=== PATIENT | male | born 1955 | race Caucasian/White ===

== ENCOUNTER → 2016-02-25 | Outpatient (CLI) | payer OTHER ==
[~2016-02-25] MED LIST: BUPIVACAINE HCL 0.25% 10 ML VIAL As Ordered ONE; BUPIVACAINE HCL 0.25% 30 ML VIAL As Ordered ONE; TRIAMCINOLONE ACETONIDE SUSP 40 MG/ML VIAL (J3301) As Ordered ONE
--- NOTE | 2016-03-02 00:54 | ECWPNPC ---
PATIENT NAME: KALEE TOVAR : 1955 GENDER: MALE VISIT DATE: 02/25/2016 DISCHARGE DATE: 02/25/161652 VISIT LOCKED DATE TIME: PHYSICIAN: LARON JOHNSON RESOURCE: LARON JOHNSON REASON FOR APPOINTMENT 1. TPI LOW BACK HISTORY OF PRESENT ILLNESS HISTORY OF PRESENT ILLNESS: PAIN THE PATIENT DESCRIBES THE PAIN... FALL RISK SCREENING: SCREENING :TWO OR MORE FALLS WITH INJURY IN THE PAST YEAR CURRENT MEDICATIONS TAKING NEURONTIN 400 MG CAPSULE 3200 MG ORALLY 2 CAPS PO QID FOR PAIN MDD8, NOTES: 02/24/16 213 TAKING CELEBREX 200 MG CAPSULE 1 -2 CAPSULE ORALLY ONCE DAILY NEEDED MDD2, NOTES: 02/24/16 2100 TAKING TOPROL XL 100 MG TABLET EXTENDED RELEASE 24 HOUR 1 TABLET ORALLY BID, NOTES: 02-25-16 123 TAKING CRESTOR 40 MG TABLET 1 TABLET ORALLY ONCE A DAY, NOTES: 02-23 2100 TAKING OMEGA 3-6-9 - CAPSULE ORALLY BID, NOTES: 08 TAKING SAW PALMETTO - CAPSULE ORALLY TID, NOTES: 02-25-162129 TAKING ECOTRIN 325 MG TABLET DELAYED RELEASE 1 TABLET ORALLY ONCE A DAY, NOTES: 02-24-16 09 TAKING VITAMIN D-3 5000 UNIT TABLET ORALLY ONCE A DAY, NOTES: 02-24-162129 TAKING CALCIUM 1200 0105-5232 MG-UNIT TABLET CHEWABLE 1 TABLET WITH A MEAL ORALLY BID, NOTES: 02-25-16 0630 TAKING B COMPLEX - CAPSULE ORALLY DAILY, NOTES: 02-24-16 1400 TAKING OMEPRAZOLE 20 MG CAPSULE DELAYED RELEASE 1 CAP ORALLY ONCE A DAY, NOTES: 02-25-16 09 TAKING TYLENOL 325 MG TABLET 2 TABLETS NEEDED ORALLY EVERY 6 HRS, NOTES: NONE RECENTLY TAKING METFORMIN HCL 500 MG TABLET 1 TABLET WITH MEALS ORALLY TWICE A DAY, NOTES: 02-24-16 1400 TAKING TRENTAL 400 MG TABLET EXTENDED RELEASE 1 TABLET WITH MEALS ORALLY TWICE A DAY, NOTES: 02-24-162129 TAKING CYTOMEL 50 MCG TABLET 1 TABLET ON AN EMPTY STOMACH ORALLY ONCE A DAY, NOTES: 02-25-16 0700 TAKING RAMIPRIL 10 MG CAPSULE 1 CAPSULE ORALLY BID, NOTES: 02/25/16 123 TAKING ZOLPIDEM TARTRATE ER 12.5 MG TABLET EXTENDED RELEASE 1 TABLET AT BEDTIME NEEDED ORALLY ONCE A DAY, NOTES: 02-24-162129 TAKING CLONAZEPAM 1 MG TABLET 1 TABLET ORALLY EVERY BEDTIME NEEDED FOR SLEEP, NOTES: 02-24-162099 TAKING SOMA 350 MG TABLET 1 TABLET NEEDED ORALLY THREE TIMES DAILY FOR SPASMS AND PAIN MDD3, NOTES: 02-24-162099 TAKING TRAMADOL HCL 50 MG TABLET 1 TABLET NEEDED ORALLY EVERY 6 HRS MDD2, NOTES: 02-24-162099 NOT-TAKING ZOLPIDEM TARTRATE 10 MG TABLET 1 TABLET AT BEDTIME NEEDED ORALLY ONCE A DAY, NOTES: 12/23/152099 NOT-TAKING ALTACE 10 MG CAPSULE 1 CAPSULE ORALLY ONCE A DAY NOT-TAKING ALEVE 220 MG TABLET 1 TABLET NEEDED ORALLY EVERY 12 HRS, NOTES: NONE RECENTLY NOT-TAKING OXYCODONE-ACETAMINOPHEN 5-325 MG TABLET 1/2 TABLET NEEDED ORALLY EVERY 6 HRS, NOTES: 2 DAYS AGO NOT-TAKING ZETIA 10 MG TABLET 1 TABLET ORALLY ONCE A DAY, NOTES: 12/24/15 0900 NOT-TAKING ACCUPRIL 10 MG TABLET 1 TABLET ORALLY ONCE A DAY, NOTES: 1300 NOT-TAKING TOPROL XL 100 MG TABLET EXTENDED RELEASE 1 TABLET ORALLY BID, NOTES: 0700 NOT-TAKING OXYCODONE HCL 5 MG TABLET 1 TABLET ORALLY BEFORE BEDTIME NEEDED FOR PAIN MDD1 MEDICATION LIST REVIEWED AND RECONCILED WITH THE PATIENT PAST MEDICAL HISTORY AFIB, ONE EPISODE HYPERTENSION HIGH CHOLESTEROL NIDDM ? SLEEP APNEA GERD ARTHRITIS ALLERGIES OXYCODONE HCL: NAUSEA: SIDE EFFECTS SOCIAL HISTORY GENERAL: TOBACCO USE ARE YOU A:NONSMOKER LEARNING BARRIERS / SPECIAL NEEDS ORIENTED TO PLAN OF CARE: PATIENT, PAIN MANAGEMENT PATIENT, ORIENTED TO PLAN OF CARE: PATIENT, PAIN MANAGEMENT PATIENT. NEW PATIENT PAIN DIARY TODAY'S VISITNOTES FROM 0-10, WHAT LEVEL IS YOUR PAIN TODAY?0 PAIN CLINIC PFS, CLERGY, PUBLIC HEALTH REFERRALS PFS REFERRAL NEEDED?NO CLERGY REFERRAL NEEDED?NO PUBLIC HEALTH REFERRAL NEEDED?NO WAS THE PROVIDER NOTIFIED OF ANY PERTINENT INFO?NO PFS REFERRAL NEEDED?NO CLERGY REFERRAL NEEDED?NO PUBLIC HEALTH REFERRAL NEEDED?NO WAS THE PROVIDER NOTIFIED OF ANY PERTINENT INFO?NO HOSPITALIZATION/MAJOR DIAGNOSTIC PROCEDURE BLEEDING ULCER REVIEW OF SYSTEMS CONSTITUTIONAL: ANY CHANGE IN YOUR MEDICAL CONDITION? NO . CHILLS NO . FEVER NO . INFECTION: DO YOU HAVE NEW INFECTIONS? NO . DO YOU HAVE HISTORY OF MRSA? NO . MUSCULOSKELETAL: ANY NEW PATTERNS OF PAIN OR NUMBNESS? NO . GASTROENTEROLOGY: ANY NEW CHANGE IN BOWEL CONTROL? NO . GENITOURINARY: ANY NEW CHANGE IN BLADDER CONTROL? NO . IS THERE A CHANCE YOU COULD BE ? NO . HEMATOLOGY/LYMPH: DO YOU TAKE ANY BLOOD THINNERS? (FOR EXAMPLE- COUMADIN, PLAVIX, AGGRENOX, PLATEL, PRADAXA, OR XARELTO) NO . WHEN WAS YOUR LAST DOSE? DATE: TIME: . NEUROLOGY: HAVE YOU FALLEN IN THE PAST 6 MONTHS? YES . ANY NEW EXTREMITY NUMBNESS OR WEAKNESS? NO . CARDIOLOGY: DO YOU HAVE A PACEMAKER OR DEFIBRILLATOR? NO . RESPIRATORY: HAVE YOU BEEN SICK IN THE PAST WEEK? NO . FEVER NO . FLU LIKE SYMPTOMS? NO . COUGH NO . INTEGUMENTARY: DO YOU HAVE ANY RASHES OR OPEN SORES? NO . ALLERGIC/IMMUNO: ARE YOU ALLERGIC TO SHELLFISH OR IV DYE? NO . ANY NEW ALLERGIES? NO . PSYCHIATRIC: DO YOU HAVE THOUGHTS OF HURTING YOURSELF OR SOMEONE ELSE? NO . ARE YOU ABUSED, NEGLECTED, OR IN AN UNSAFE ENVIRONMENT? NO . ENDOCRINOLOGY: ARE YOU DIABETIC? YES . OTHER: DO YOU NEED ANY PRESCRIPTIONS? YES . IF YES, PLEASE LIST: CELEBREX 200 MG BID, SOMA 350 MG TID, TRAMADOL 100 MG BID . ANY NEW PROBLEMS WITH YOUR MEDICATIONS? NO . WHEN DID YOU LAST EAT? 0700 . WHEN DID YOU LAST DRINK? 1230 . WHAT DID YOU LAST DRINK? WATER . NAME OF PERSON DRIVING YOU HOME? SALLIE VELAZQUEZ . DO YOU HAVE ANY OTHER QUESTIONS OR CONCERNS NO . REVIEWED BY: PROVIDER: . VITAL SIGNS WT 227 LBS, HT 70 IN, BMI 32.57 INDEX, BP 126/60 MM HG, HR 62 /MIN, RR 16 /MIN, TEMP 96.0 F, OXYGEN SAT % 98, NA INITIALS TL 1458, REVIEWED BY: LOPEZ. ASSESSMENTS MYALGIA - M79.1 (PRIMARY) TREATMENT OTHERS REFILL SOMA TABLET, 350 MG, 1 TABLET NEEDED, ORALLY, THREE TIMES DAILY FOR SPASMS AND PAIN MDD3, 30 DAY(S), 90, REFILLS 0, NOTES: 02-24-16 2100 REFILL TRAMADOL HCL TABLET, 50 MG, 1 TABLET NEEDED, ORALLY, EVERY 6 HRS MDD2, 30 DAY(S), 60, REFILLS 0, NOTES: 1-12-17 2100 REFILL CELEBREX CAPSULE, 200 MG, 1 -2 CAPSULE, ORALLY, ONCE DAILY NEEDED MDD2, 30 DAY(S), 60, REFILLS 2, NOTES: 02/24/16 2100 PROCEDURES PN TRIGGER POINT INJECTION WITH STEROIDS PRE PROCEDURE DIAGNOSIS 1. MYALGIA 2. PAIN AT BILATERAL LOW BACK AREA POST PROCEDURE DIAGNOSIS 1. MYALGIA 2. PAIN AT BILATERAL LOW BACK AREA PROCEDURE TRIGGER POINT INJECTION AT BILATERAL LOW BACK AREA SURGEON DR. LARON JOHNSON TRAVEL AGENT NONE ANESTHESIA LOCAL PRE PROCEDURE NOTE THE PATIENT HAS A HISTORY OF CHRONIC PAIN AT THE RIGHT AND LEFT LOW BACK AREA. I EVALUATE THE PATIENT AND REVIEWED THE CHART. THERE IS EVIDENCE OF BANDS OF TISSUE WITH RESTRICTION OF MOVEMENT AND PRESENCE OF TRIGGER POINT AT THE AFFECTED AREA. I WENT OVER THE RISKS, ALTERNATIVES, AND BENEFITS ASSOCIATED WITH THIS PROCEDURE. THE PATIENT WOULD LIKE TO PROCEED AND GIVE CONSENT TO PERFORMED THE PROCEDURE. THE PATIENT DENIES UNEXPLAINABLE WEIGHT LOSS, FEVER, CHILLS, OR NEW CHANGES IN URINARY OR BOWEL CONTROL DESCRIPTION OF PROCEDURE THE PATIENT WAS BROUGHT TO THE PROCEDURE ROOM AND PLACED IN THE SITTING POSITION. THE AREA WAS CLEANED WITH ALCOHOL. THE PROCEDURE WAS DONE USING ASEPTIC STERILE TECHNIQUE. I CHECKED LATERALITY AND THE LEVEL WHERE THE PROCEDURE WAS GOING TO BE PERFORMED WITH THE PATIENT AND THE SUPPORTING STAFF AT THE MOMENT OF THE TIME OUT IN THE PROCEDURE ROOM. USING A 25-GAUGE NEEDLE, TRIGGER POINTS WERE INJECTED AT THE RIGHT AND LEFT LOW BACK AREA WITH A TOTAL OF 40 ML OF BUPIVACAINE 0.25% AND KENALOG 40 MG. THERE WAS NO EVIDENCE OF BLOOD, PARESTHESIA OR CEREBROSPINAL FLUID DURING THE PROCEDURE. THE PATIENT WAS SENT TO THE RECOVERY ROOM. THE PATIENT WAS MOVING THE EXTREMITIES AND DOING WELL. THERE WAS NO COMPLICATION DURING THE PROCEDURE POST PROCEDURE NOTE THE PATIENT WILL BE SEEN IN A FOLLOW UP IN THE NEXT FEW WEEKS. INSTRUCTIONS WERE GIVEN, QUESTIONS WERE ANSWERED, AND THE PATIENT EXPRESSED UNDERSTANDING AND AGREES WITH THE PLAN. INSTRUCTIONS WERE GIVEN, QUESTIONS WERE ANSWERED, PATIENT REPORTS UNDERSTANDING AND AGREES WITH THE PLAN. I, KAELA CARTER, DOCUMENTED THE ABOVE INFORMATION ACTING A SCRIBE FOR DR. JOHNSON. I HAVE REVIEWED THE ABOVE DOCUMENT, WRITTEN BY KAELA CAR AND I VERIFY THAT IT IS ACCURATE. PROCEDURE CODES 96674 INJ TRIGGER POINT 02/13 [facility] FOLLOW UP 3 WEEKS ELECTRONICALLY SIGNED BY LARON JOHNSON MD ON 03/01/2016 AT 08:19 PM EST DISCLAIMER : THIS IS A VISIT SUMMARY EXTRACTED FROM THE [employer] CHART. IT IS NOT A COPY OF THE [employer] PROGRESS NOTE. MAUREEN
== END ==
LOC: M PAIN 15:00
PROVIDERS: ATTEND Anesthesiology
DX: G89.29 Other chronic pain (principal); M79.1 Myalgia; M54.5 Low back pain; Z79.891 Long term (current) use of opiate analgesic; Z79.899 Other long term (current) drug therapy; Z79.84 Long term (current) use of oral hypoglycemic drugs
CPT/HCPCS: 20552; J3301

== ENCOUNTER → 2016-03-24 | Outpatient (CLI) | payer OTHER ==
--- NOTE | 2016-04-01 23:42 | ECWPNPC ---
PATIENT NAME: KALEE TOVAR : 1955 GENDER: MALE VISIT DATE: 03/24/2016 DISCHARGE DATE: 03/24/16 1721 VISIT LOCKED DATE TIME: PHYSICIAN: LARON JOHNSON RESOURCE: LARON JOHNSON REASON FOR APPOINTMENT 1. BACK/NECK HISTORY OF PRESENT ILLNESS HISTORY OF PRESENT ILLNESS: PAIN THE PATIENT DESCRIBES THE PAIN... THE PATIENT DESCRIBES THE PAIN... 61 YEAR OLD MALE PATIENT WITH HISTORY OF CHRONIC BACK AND NECK PAIN. PATIENT DESCRIBES THE PAIN ACHING, SHARP, AND TENDER WITH A PAIN SCORE OF 3/10 ON TODAY'S VISIT. PATIENT RECEIVED A TPI ON 02/02/2016 IN THE NECK AREA AND A TPI ON 02/25/2016 IN THE LOW BACK AREA AND REPORT OF DOING VERY WELL SINCE THE INJECTION. PATIENT STATES THAT HE FEELS THE PAIN HAS GONE DOWN MORE THAN 50 PERCENT. WITH HIS PAIN LOWER, PATIENT STATES THAT HE IS REDUCING THE AMOUNT OF MEDICATIONS HE IS TAKING. PATIENT REPORTS THAT HE DOES HAVE SOME PAIN IN THE VERY LOW BACK AREA BETWEEN THE BUTTOCKS. PATIENT DENIES UNEXPLAINABLE WEIGHT LOSS, FEVER, CHILLS, NEW CHANGES ON HIS URINARY OR BOWEL CONTROL. ,. FALL RISK SCREENING: SCREENING :NO FALLS IN THE PAST YEAR :NO FALLS IN THE PAST YEAR SCREENING :NO FALLS IN THE PAST YEAR :NO FALLS IN THE PAST YEAR CURRENT MEDICATIONS TAKING NEURONTIN 400 MG CAPSULE 3200 MG ORALLY 2 CAPS PO QID FOR PAIN MDD8 TAKING TOPROL XL 100 MG TABLET EXTENDED RELEASE 24 HOUR 1 TABLET ORALLY BID TAKING CRESTOR 40 MG TABLET 1 TABLET ORALLY ONCE A DAY TAKING OMEGA 3-6-9 - CAPSULE ORALLY BID TAKING SAW PALMETTO - CAPSULE ORALLY TID TAKING ECOTRIN 325 MG TABLET DELAYED RELEASE 1 TABLET ORALLY ONCE A DAY TAKING VITAMIN D-3 5000 UNIT TABLET ORALLY ONCE A DAY TAKING CALCIUM 1200 8973-0046 MG-UNIT TABLET CHEWABLE 1 TABLET WITH A MEAL ORALLY BID TAKING B COMPLEX - CAPSULE ORALLY DAILY TAKING OMEPRAZOLE 20 MG CAPSULE DELAYED RELEASE 1 CAP ORALLY ONCE A DAY TAKING TYLENOL 325 MG TABLET 2 TABLETS NEEDED ORALLY EVERY 6 HRS TAKING METFORMIN HCL 500 MG TABLET 1 TABLET WITH MEALS ORALLY TWICE A DAY TAKING TRENTAL 400 MG TABLET EXTENDED RELEASE 1 TABLET WITH MEALS ORALLY TWICE A DAY TAKING CYTOMEL 50 MCG TABLET 1 TABLET ON AN EMPTY STOMACH ORALLY ONCE A DAY TAKING RAMIPRIL 10 MG CAPSULE 1 CAPSULE ORALLY BID TAKING ZOLPIDEM TARTRATE ER 12.5 MG TABLET EXTENDED RELEASE 1 TABLET AT BEDTIME NEEDED ORALLY ONCE A DAY TAKING CLONAZEPAM 2 MG TABLET 1 TABLET ORALLY EVERY BEDTIME NEEDED FOR SLEEP TAKING SOMA 350 MG TABLET 1 TABLET NEEDED ORALLY THREE TIMES DAILY FOR SPASMS AND PAIN MDD3 TAKING TRAMADOL HCL 50 MG TABLET 1 TABLET NEEDED ORALLY EVERY 6 HRS MDD2 TAKING CELEBREX 200 MG CAPSULE 1 -2 CAPSULE ORALLY ONCE DAILY NEEDED MDD2 NOT-TAKING ZOLPIDEM TARTRATE 10 MG TABLET 1 TABLET AT BEDTIME NEEDED ORALLY ONCE A DAY, NOTES: 12/23/15 2100 NOT-TAKING ALTACE 10 MG CAPSULE 1 CAPSULE ORALLY ONCE A DAY NOT-TAKING ALEVE 220 MG TABLET 1 TABLET NEEDED ORALLY EVERY 12 HRS, NOTES: NONE RECENTLY NOT-TAKING OXYCODONE-ACETAMINOPHEN 5-325 MG TABLET 1/2 TABLET NEEDED ORALLY EVERY 6 HRS, NOTES: 2 DAYS AGO NOT-TAKING ZETIA 10 MG TABLET 1 TABLET ORALLY ONCE A DAY, NOTES: 12/24/15 0900 NOT-TAKING ACCUPRIL 10 MG TABLET 1 TABLET ORALLY ONCE A DAY, NOTES: 1300 NOT-TAKING TOPROL XL 100 MG TABLET EXTENDED RELEASE 1 TABLET ORALLY BID, NOTES: 0700 NOT-TAKING OXYCODONE HCL 5 MG TABLET 1 TABLET ORALLY BEFORE BEDTIME NEEDED FOR PAIN MDD1 MEDICATION LIST REVIEWED AND RECONCILED WITH THE PATIENT PAST MEDICAL HISTORY AFIB, ONE EPISODE HYPERTENSION HIGH CHOLESTEROL NIDDM ? SLEEP APNEA GERD ARTHRITIS ALLERGIES OXYCODONE HCL: NAUSEA: SIDE EFFECTS SURGICAL HISTORY NO SURGICAL HISTORY DOCUMENTED. FAMILY HISTORY NO FAMILY HISTORY DOCUMENTED. SOCIAL HISTORY GENERAL: TOBACCO USE ARE YOU A:NONSMOKER ARE YOU A:NONSMOKER LEARNING BARRIERS / SPECIAL NEEDS ORIENTED TO PLAN OF CARE: PATIENT, PAIN MANAGEMENT PATIENT, ORIENTED TO PLAN OF CARE: PATIENT, PAIN MANAGEMENT PATIENT, ORIENTED TO PLAN OF CARE: PATIENT, PAIN MANAGEMENT PATIENT, ORIENTED TO PLAN OF CARE: PATIENT, PAIN MANAGEMENT PATIENT. NEW PATIENT PAIN DIARY TODAY'S VISITNOTES FROM 0-10, WHAT LEVEL IS YOUR PAIN TODAY?0 TODAY'S VISITNOTES FROM 0-10, WHAT LEVEL IS YOUR PAIN TODAY?0 PAIN CLINIC PFS, CLERGY, PUBLIC HEALTH REFERRALS PFS REFERRAL NEEDED?NO CLERGY REFERRAL NEEDED?NO PUBLIC HEALTH REFERRAL NEEDED?NO WAS THE PROVIDER NOTIFIED OF ANY PERTINENT INFO?NO PFS REFERRAL NEEDED?NO CLERGY REFERRAL NEEDED?NO PUBLIC HEALTH REFERRAL NEEDED?NO WAS THE PROVIDER NOTIFIED OF ANY PERTINENT INFO?NO PFS REFERRAL NEEDED?NO CLERGY REFERRAL NEEDED?NO PUBLIC HEALTH REFERRAL NEEDED?NO WAS THE PROVIDER NOTIFIED OF ANY PERTINENT INFO?NO PFS REFERRAL NEEDED?NO CLERGY REFERRAL NEEDED?NO PUBLIC HEALTH REFERRAL NEEDED?NO WAS THE PROVIDER NOTIFIED OF ANY PERTINENT INFO?NO HOSPITALIZATION/MAJOR DIAGNOSTIC PROCEDURE BLEEDING ULCER REVIEW OF SYSTEMS CONSTITUTIONAL: ANY CHANGE IN YOUR MEDICAL CONDITION? NO, NO . CHILLS NO, NO . FEVER NO, NO . INFECTION: DO YOU HAVE NEW INFECTIONS? NO, NO . DO YOU HAVE HISTORY OF MRSA? NO, NO . MUSCULOSKELETAL: ANY NEW PATTERNS OF PAIN OR NUMBNESS? NO, NO . GASTROENTEROLOGY: ANY NEW CHANGE IN BOWEL CONTROL? NO, NO . GENITOURINARY: ANY NEW CHANGE IN BLADDER CONTROL? NO, NO . IS THERE A CHANCE YOU COULD BE ? NO, NO . HEMATOLOGY/LYMPH: DO YOU TAKE ANY BLOOD THINNERS? (FOR EXAMPLE- COUMADIN, PLAVIX, AGGRENOX, PLATEL, PRADAXA, OR XARELTO) NO, NO . WHEN WAS YOUR LAST DOSE? DATE: TIME: , DATE: TIME: . NEUROLOGY: HAVE YOU FALLEN IN THE PAST 6 MONTHS? NO, NO . ANY NEW EXTREMITY NUMBNESS OR WEAKNESS? NO, NO . CARDIOLOGY: DO YOU HAVE A PACEMAKER OR DEFIBRILLATOR? NO, NO . RESPIRATORY: HAVE YOU BEEN SICK IN THE PAST WEEK? NO, NO . FEVER NO, NO . FLU LIKE SYMPTOMS? NO, NO . COUGH NO, NO . INTEGUMENTARY: DO YOU HAVE ANY RASHES OR OPEN SORES? NO, NO . ALLERGIC/IMMUNO: ARE YOU ALLERGIC TO SHELLFISH OR IV DYE? NO, NO . ANY NEW ALLERGIES? NO, NO . PSYCHIATRIC: DO YOU HAVE THOUGHTS OF HURTING YOURSELF OR SOMEONE ELSE? NO, NO . ARE YOU ABUSED, NEGLECTED, OR IN AN UNSAFE ENVIRONMENT? NO, NO . ENDOCRINOLOGY: ARE YOU DIABETIC? YES . OTHER: DO YOU NEED ANY PRESCRIPTIONS? YES AFTER 03/31/16 CELEBREX 200MG BID, SOMA 350 MG TID . IF YES, PLEASE LIST: ____, ____ . ANY NEW PROBLEMS WITH YOUR MEDICATIONS? NO, NO . WHEN DID YOU LAST EAT? ____, ____ . WHEN DID YOU LAST DRINK? ____, ____ . WHAT DID YOU LAST DRINK? ____, ____ . NAME OF PERSON DRIVING YOU HOME? ____, ____ . DO YOU HAVE ANY OTHER QUESTIONS OR CONCERNS NO, NO . REVIEWED BY: PROVIDER: , LARON JOHNSON MD . VITAL SIGNS WT 227 LBS, HT 70 IN, BMI 32.57 INDEX, BP 135/64 MM HG, HR 68 /MIN, RR 16 /MIN, TEMP 96.0 F, OXYGEN SAT % 98, NA INITIALS TL 1550. EXAMINATION : PATIENT IS ALERT O X 3 AND COOPERATIVE. PATIENT HAS STIFFNESS IN THE LOWER BACK WHEN AMBULATING. THERE IS TENDERNESS AND PAIN IN THE LOWER BACK AREA. PATIENT HAS SACROILIAC TENDERNESS. MRI OF THE LUMBAR SPINE DONE ON 12/22/2015 SHOWS FACET ARTHROPATHY CHANGES AND DISC BULGES. 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 TOVAR'S PAIN MANAGEMENT CASE. AT THIS TIME THE PATIENT WILL CONTINUE ON THE SAME MEDICATION REGIMEN BEFORE AND WILL RECEIVED REFILLS OF THE NEEDED MEDICATIONS TODAY. PATIENT WILL START ON 6 TABS A DAY FOR GABAPENTIN AND NO LONGER THE 8 TABS A DAY. I DISCUSSED THE SIDE EFFECTS OF THE DIFFERENT MEDICATION WITH THE PATIENT AND THAT SHOULD HE EXPERIENCE ANY SIDE EFFECTS TO STOP TAKING THE MEDICATION IMMEDIATELY AND IF NEEDED GO TO THE ER. PATIENT IS A GOOD CANDIDATE FOR A LUMBAR FACET BLOCK THERAPEUTIC AND A SIJ INJECTION. WE DISCUSSED THE RISK, BENEFITS, AND ALTERNATIVES AND THE PATIENT WOULD LIKE TO PROCEED. PATIENT WILL BE BOOKED PENDING AUTH. INSTRUCTIONS WERE GIVEN, QUESTIONS WERE ANSWERED, PATIENT REPORTS UNDERSTANDING AND AGREES WITH THE PLAN. I, KAELA CARTER, DOCUMENTED THE ABOVE INFORMATION ACTING A SCRIBE FOR DR. JOHNSON. I HAVE REVIEWED THE ABOVE DOCUMENT, WRITTEN BY KAELA VALLESIBJing AND I VERIFY THAT IT IS ACCURATE. OTHERS REFILL NEURONTIN CAPSULE, 400 MG, CAPSULE, ORALLY, 2 CAPS PO TID FOR PAIN MDD6, 30 DAY(S), 180, REFILLS 2 REFILL SOMA TABLET, 350 MG, 1 TABLET NEEDED, ORALLY CODE D FOR CHRONIC PAIN, THREE TIMES DAILY FOR SPASMS AND PAIN MDD3, 60 DAYS, 160, REFILLS 0 REFILL TRAMADOL HCL TABLET, 50 MG, 1 TABLET NEEDED, ORALLY FOR PAIN CODE D CHRONIC PAIN, EVERY 6 HRS MDD2, 60 DAYS, 100, REFILLS 0 REFILL CELEBREX CAPSULE, 200 MG, 1 CAPSULE, ORALLY, BID DAILY NEEDED MDD2, 30 DAY(S), 50, REFILLS 1 PROCEDURE CODES FA211 ESTABILISHED PATIENT FORMERLY [facility] CHARGE G8730 PAIN ASSESS POS TOOL F/U PLAN DOC G8427 DOC MEDS VERIFIED W/PT OR RE DISPOSITION & COMMUNICATION FOLLOW UP SIJ VS LFBT PENDING AUTH ELECTRONICALLY SIGNED BY LARON JOHNSON MD ON 04/01/2016 AT 09:12 PM EST DISCLAIMER : THIS IS A VISIT SUMMARY EXTRACTED FROM THE [employer] CHART. IT IS NOT A COPY OF THE [employer] PROGRESS NOTE. MTDD
== END ==
LOC: M PAIN 16:00
PROVIDERS: ATTEND Anesthesiology
DX: Z09 Encounter for follow-up examination after completed treatment for conditions other than malignant neoplasm (principal); G89.29 Other chronic pain; M46.1 Sacroiliitis, not elsewhere classified; M47.817 Spondylosis without myelopathy or radiculopathy, lumbosacral region; M47.816 Spondylosis without myelopathy or radiculopathy, lumbar region; I10 Essential (primary) hypertension; E78.00 Pure hypercholesterolemia, unspecified; E11.9 Type 2 diabetes mellitus without complications; K21.9 Gastro-esophageal reflux disease without esophagitis; M19.90 Unspecified osteoarthritis, unspecified site; Z88.5 Allergy status to narcotic agent; Z79.84 Long term (current) use of oral hypoglycemic drugs; Z79.891 Long term (current) use of opiate analgesic; Z79.899 Other long term (current) drug therapy; Z86.79 Personal history of other diseases of the circulatory system

== ENCOUNTER → 2016-04-14 | Outpatient (CLI) | payer OTHER ==
[~2016-04-14] MED LIST changes: -BUPIVACAINE HCL 0.25% 10 ML VIAL As Ordered ONE; +ISOVUE-M 300 61% 15ML VIAL (Q9967) As Ordered ONE; +LIDOCAINE 1% SDV INJ 30 ML VIAL As Ordered ONE
--- NOTE | 2016-04-14 18:52 | REP ---
C-ARM VIEWS LUMBOSACRAL SPINE: Clinical history: Pain. Four C-Arm views of the lumbosacral spine are performed during injection by Dr. Coello. [place] are seen at the L4-5 and L5-S1 level. Contrast is injected. 27 seconds of fluoroscopy time is utilized. Signed by José Miguel Ron MD 04/14/2016 08:39 P
--- NOTE | 2016-04-20 00:37 | ECWPNPC ---
PATIENT NAME: KALEE TOVAR : 1955 GENDER: MALE VISIT DATE: 04/14/2016 DISCHARGE DATE: 04/14/16 1456 VISIT LOCKED DATE TIME: PHYSICIAN: LARON JOHNSON RESOURCE: LARON JOHNSON REASON FOR APPOINTMENT 1. FBT VS [facility] HISTORY OF PRESENT ILLNESS HISTORY OF PRESENT ILLNESS: PAIN THE PATIENT DESCRIBES THE PAIN... FALL RISK SCREENING: SCREENING :NO FALLS IN THE PAST YEAR CURRENT MEDICATIONS TAKING NEURONTIN 400 MG CAPSULE CAPSULE ORALLY 2 CAPS PO TID FOR PAIN MDD6, NOTES: 04-13-162099 TAKING SOMA 350 MG TABLET 1 TABLET NEEDED ORALLY CODE D FOR CHRONIC PAIN THREE TIMES DAILY FOR SPASMS AND PAIN MDD3, NOTES: 04-13-162099 TAKING TRAMADOL HCL 50 MG TABLET 1 TABLET NEEDED ORALLY FOR PAIN CODE D CHRONIC PAIN EVERY 6 HRS MDD2, NOTES: 04-13-162099 TAKING CELEBREX 200 MG CAPSULE 1 CAPSULE ORALLY BID DAILY NEEDED MDD2, NOTES: 04-13-162099 TAKING TOPROL XL 100 MG TABLET EXTENDED RELEASE 24 HOUR 1 TABLET ORALLY BID, NOTES: 04-14-16699 TAKING CRESTOR 40 MG TABLET 1 TABLET ORALLY ONCE A DAY, NOTES: 04-13-161499 TAKING OMEGA 3-6-9 - CAPSULE ORALLY BID, NOTES: 04-14-16699 TAKING SAW PALMETTO - CAPSULE ORALLY TID, NOTES: 04-13-162099 TAKING ECOTRIN 325 MG TABLET DELAYED RELEASE 1 TABLET ORALLY ONCE A DAY, NOTES: 04-13-16 TAKING VITAMIN D-3 5000 UNIT TABLET ORALLY ONCE A DAY, NOTES: 04-14-16699 TAKING CALCIUM 1200 0062-0507 MG-UNIT TABLET CHEWABLE 1 TABLET WITH A MEAL ORALLY BID, NOTES: 04-14-16699 TAKING B COMPLEX - CAPSULE ORALLY DAILY, NOTES: 04-14-16699 TAKING OMEPRAZOLE 20 MG CAPSULE DELAYED RELEASE 1 CAP ORALLY ONCE A DAY, NOTES: 04-14-16699 TAKING TYLENOL 325 MG TABLET 2 TABLETS NEEDED ORALLY EVERY 6 HRS TAKING METFORMIN HCL 500 MG TABLET 1 TABLET WITH MEALS ORALLY TWICE A DAY, NOTES: 04-13-161499 TAKING TRENTAL 400 MG TABLET EXTENDED RELEASE 1 TABLET WITH MEALS ORALLY TWICE A DAY, NOTES: 04-13-162099 TAKING CYTOMEL 50 MCG TABLET 1 TABLET ON AN EMPTY STOMACH ORALLY ONCE A DAY, NOTES: 04-14-16 07 TAKING RAMIPRIL 10 MG CAPSULE 1 CAPSULE ORALLY BID, NOTES: 04-14-16699 TAKING ZOLPIDEM TARTRATE ER 12.5 MG TABLET EXTENDED RELEASE 1 TABLET AT BEDTIME NEEDED ORALLY ONCE A DAY, NOTES: 04-13-162099 TAKING CLONAZEPAM 2 MG TABLET 1 TABLET ORALLY EVERY BEDTIME NEEDED FOR SLEEP, NOTES: 04-13-162099 NOT-TAKING ZOLPIDEM TARTRATE 10 MG TABLET 1 TABLET AT BEDTIME NEEDED ORALLY ONCE A DAY, NOTES: 12/23/15 2100 NOT-TAKING ALTACE 10 MG CAPSULE 1 CAPSULE ORALLY ONCE A DAY NOT-TAKING ALEVE 220 MG TABLET 1 TABLET NEEDED ORALLY EVERY 12 HRS, NOTES: NONE RECENTLY NOT-TAKING OXYCODONE-ACETAMINOPHEN 5-325 MG TABLET 1/2 TABLET NEEDED ORALLY EVERY 6 HRS, NOTES: 2 DAYS AGO NOT-TAKING ZETIA 10 MG TABLET 1 TABLET ORALLY ONCE A DAY, NOTES: 12/24/15 0900 NOT-TAKING ACCUPRIL 10 MG TABLET 1 TABLET ORALLY ONCE A DAY, NOTES: 1300 NOT-TAKING TOPROL XL 100 MG TABLET EXTENDED RELEASE 1 TABLET ORALLY BID, NOTES: 0700 NOT-TAKING OXYCODONE HCL 5 MG TABLET 1 TABLET ORALLY BEFORE BEDTIME NEEDED FOR PAIN MDD1 MEDICATION LIST REVIEWED AND RECONCILED WITH THE PATIENT PAST MEDICAL HISTORY AFIB, ONE EPISODE HYPERTENSION HIGH CHOLESTEROL NIDDM ? SLEEP APNEA GERD ARTHRITIS ALLERGIES OXYCODONE HCL: NAUSEA: SIDE EFFECTS SOCIAL HISTORY GENERAL: TOBACCO USE ARE YOU A:NONSMOKER LEARNING BARRIERS / SPECIAL NEEDS ORIENTED TO PLAN OF CARE: PATIENT, PAIN MANAGEMENT PATIENT, ORIENTED TO PLAN OF CARE: PATIENT, PAIN MANAGEMENT PATIENT. NEW PATIENT PAIN DIARY TODAY'S VISITNOTES FROM 0-10, WHAT LEVEL IS YOUR PAIN TODAY?0 PAIN CLINIC PFS, CLERGY, PUBLIC HEALTH REFERRALS PFS REFERRAL NEEDED?NO CLERGY REFERRAL NEEDED?NO PUBLIC HEALTH REFERRAL NEEDED?NO WAS THE PROVIDER NOTIFIED OF ANY PERTINENT INFO?NO PFS REFERRAL NEEDED?NO CLERGY REFERRAL NEEDED?NO PUBLIC HEALTH REFERRAL NEEDED?NO WAS THE PROVIDER NOTIFIED OF ANY PERTINENT INFO?NO HOSPITALIZATION/MAJOR DIAGNOSTIC PROCEDURE BLEEDING ULCER REVIEW OF SYSTEMS CONSTITUTIONAL: ANY CHANGE IN YOUR MEDICAL CONDITION? NO . CHILLS NO . FEVER NO . INFECTION: DO YOU HAVE NEW INFECTIONS? NO . DO YOU HAVE HISTORY OF MRSA? NO . MUSCULOSKELETAL: ANY NEW PATTERNS OF PAIN OR NUMBNESS? YES, RIGHT SHOULDER PAIN . GASTROENTEROLOGY: ANY NEW CHANGE IN BOWEL CONTROL? NO . GENITOURINARY: ANY NEW CHANGE IN BLADDER CONTROL? NO . IS THERE A CHANCE YOU COULD BE ? NO . HEMATOLOGY/LYMPH: DO YOU TAKE ANY BLOOD THINNERS? (FOR EXAMPLE- COUMADIN, PLAVIX, AGGRENOX, PLATEL, PRADAXA, OR XARELTO) NO . WHEN WAS YOUR LAST DOSE? DATE: TIME: . NEUROLOGY: HAVE YOU FALLEN IN THE PAST 6 MONTHS? YES . ANY NEW EXTREMITY NUMBNESS OR WEAKNESS? NO . CARDIOLOGY: DO YOU HAVE A PACEMAKER OR DEFIBRILLATOR? NO . RESPIRATORY: HAVE YOU BEEN SICK IN THE PAST WEEK? NO . FEVER NO . FLU LIKE SYMPTOMS? NO . COUGH NO . INTEGUMENTARY: DO YOU HAVE ANY RASHES OR OPEN SORES? NO . ALLERGIC/IMMUNO: ARE YOU ALLERGIC TO SHELLFISH OR IV DYE? NO . ANY NEW ALLERGIES? NO . PSYCHIATRIC: DO YOU HAVE THOUGHTS OF HURTING YOURSELF OR SOMEONE ELSE? NO . ARE YOU ABUSED, NEGLECTED, OR IN AN UNSAFE ENVIRONMENT? NO . ENDOCRINOLOGY: ARE YOU DIABETIC? YES . OTHER: DO YOU NEED ANY PRESCRIPTIONS? NO . IF YES, PLEASE LIST: ____ . ANY NEW PROBLEMS WITH YOUR MEDICATIONS? NO . WHEN DID YOU LAST EAT? 04-14-16799 . WHEN DID YOU LAST DRINK? 04-14-16899 . WHAT DID YOU LAST DRINK? JUICE . NAME OF PERSON DRIVING YOU HOME? _LYDIA . DO YOU HAVE ANY OTHER QUESTIONS OR CONCERNS NO . REVIEWED BY: PROVIDER: . VITAL SIGNS WT 234 LBS, HT 70 IN, BMI 33.57 INDEX, BP 121/58 MM HG, HR 65 /MIN, RR 16 /MIN, TEMP 96.0 F, OXYGEN SAT % 96, NA INITIALS TL 1418. 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 LARON JOHNSON LEATHER PATCHER NONE ANESTHESIA LOCAL PRE PROCEDURE NOTE THE PATIENT HAS A HISTORY OF CHRONIC LOW BACK PAIN. I EVALUATE THE PATIENT AND REVIEWED THE CHART. I WENT OVER THE RISKS, ALTERNATIVES, AND BENEFITS ASSOCIATED WITH THIS PROCEDURE. THE PATIENT WOULD LIKE TO PROCEED AND GIVE CONSENT TO PERFORMED THE PROCEDURE. THE PATIENT DENIES UNEXPLAINABLE WEIGHT LOSS, FEVER, CHILLS, OR NEW CHANGES IN URINARY OR BOWEL CONTROL. DESCRIPTION OF PROCEDURE THE PATIENT WAS BROUGHT TO THE PROCEDURE ROOM AND PLACED IN THE PRONE POSITION. THE LUMBOSACRAL AREA WAS CLEANED WITH CHLORAPREP SOLUTION AND DRAPED ASEPTICALLY. THE PROCEDURE WAS DONE UNDER STERILE CONDITIONS. I CHECKED LATERALITY AND THE LEVEL WHERE THE PROCEDURE WAS GOING TO BE PERFORMED WITH THE PATIENT AND THE SUPPORTING STAFF AT THE MOMENT OF THE TIME OUT IN THE PROCEDURE ROOM. UNDER FLUOROSCOPIC GUIDANCE, THE TARGET POINT WAS SELECTED AT THE RIGHT AND LEFT L4-L5 AND RIGHT AND LEFT L5-S1 FACET JOINT. TARGET POINT WAS SELECTED AFTER LATERAL ROTATION AND TILT OF THE MAGNIFIER OF THE C-ARM. LIDOCAINE 0.5% WAS USED TO NUMB THE SKIN AND THE SUBCUTANEOUS TISSUE BELOW IT. SPINAL NEEDLES, 22-GAUGE, WERE ADVANCED UNDER FLUOROSCOPIC GUIDANCE AND FOLLOWING PATIENT FEEDBACK UNTIL THE TARGETS WERE TOUCHED. THE POSITION OF THE NEEDLES WAS VERIFIED WITH AP AND LATERAL VIEWS. AFTER PROPER POSITION OF THE NEEDLES WAS ACHIEVED, ISOVUE-M DYE 30% 0.1 ML WAS INJECTED SHOWING ADEQUATE SPREAD OF THE DYE. THEN A SOLUTION OF 1.9 ML OF BUPIVACAINE 0.125% OF KENALOG 10 MG WAS INJECTED AT EACH SITE. THERE WAS NO EVIDENCE OF BLOOD, PARESTHESIA OR CEREBROSPINAL FLUID DURING THE PROCEDURE. THE PATIENT WAS SENT TO THE RECOVERY ROOM. THE PATIENT WAS MOVING THE EXTREMITIES AND DOING WELL. THERE WAS NO COMPLICATION DURING THE PROCEDURE. FLUOROSCOPY TIME WAS 27 SECONDS POST PROCEDURE NOTE THE PATIENT WILL BE SEEN IN A FOLLOW UP IN THE NEXT FEW WEEKS. INSTRUCTIONS WERE GIVEN, QUESTIONS WERE ANSWERED, AND THE PATIENT EXPRESSED UNDERSTANDING AND AGREES WITH THE PLAN. INSTRUCTIONS WERE GIVEN, QUESTIONS WERE ANSWERED, PATIENT REPORTS UNDERSTANDING AND AGREES WITH THE PLAN. I, KAELA CARTER, DOCUMENTED THE ABOVE INFORMATION ACTING A SCRIBE FOR DR. JOHNSON. I HAVE REVIEWED THE ABOVE DOCUMENT, WRITTEN BY KAELA CARTER SCRIBJing AND I VERIFY THAT IT IS ACCURATE. DIAGNOSTIC IMAGING [facility] FACET BLOCK (PAIN)[id number] PROCEDURE CODES 23425 INJ PARAVERT F JNT L/S 1 LEV 35457 INJ PARAVERT F JNT L/S 2 LEV 6045F RADXPS IN END [id number] PXD DISPOSITION & COMMUNICATION FOLLOW UP 3 WEEKS ELECTRONICALLY SIGNED BY LARON JOHNSON MD ON 04/19/2016 AT 06:37 AM EST DISCLAIMER : THIS IS A VISIT SUMMARY EXTRACTED FROM THE [employer] CHART. IT IS NOT A COPY OF THE [employer] PROGRESS NOTE. MTDD
== END ==
LOC: M PAIN 14:20
PROVIDERS: ATTEND Anesthesiology
DX: G89.29 Other chronic pain (principal); M47.816 Spondylosis without myelopathy or radiculopathy, lumbar region; M47.817 Spondylosis without myelopathy or radiculopathy, lumbosacral region; I10 Essential (primary) hypertension; E78.00 Pure hypercholesterolemia, unspecified; E11.9 Type 2 diabetes mellitus without complications; K21.9 Gastro-esophageal reflux disease without esophagitis; M19.90 Unspecified osteoarthritis, unspecified site; Z79.891 Long term (current) use of opiate analgesic; Z79.82 Long term (current) use of aspirin; Z79.84 Long term (current) use of oral hypoglycemic drugs; Z79.899 Other long term (current) drug therapy; Z88.5 Allergy status to narcotic agent
CPT/HCPCS: 64493; 64494; J3301; Q9967

== ENCOUNTER → 2016-07-07 | Outpatient (CLI) | payer OTHER ==
--- NOTE | 2016-07-19 00:41 | ECWPNPC ---
PATIENT NAME: KALEE TOVAR : 1955 GENDER: MALE VISIT DATE: 07/07/2016 DISCHARGE DATE: 07/07/161657 VISIT LOCKED DATE TIME: PHYSICIAN: LARON JOHNSON RESOURCE: LARON JOHNSON REASON FOR APPOINTMENT 1. NECK HISTORY OF PRESENT ILLNESS HISTORY OF PRESENT ILLNESS: PAIN THE PATIENT DESCRIBES THE PAIN... 61 YEAR OLD MALE PATIENT WITH HISTORY OF CHRONIC BACK AND NECK PAIN. PATIENT DESCRIBES THE PAIN ACHING WITH A PAIN SCORE OF 1-2/10 ON TODAY'S VISIT. PATIENT RECEIVED A BILATERAL LUMBAR THERAPEUTIC FACET BLOCK L4-L5 AND L5-S1 AND STATES THAT IT PROVIDED GOOD PAIN RELIEF WITH MORE THAN 50 PERCENT IN THE REDUCTION OF PAIN. PATIENT STATES THAT HE HAS BEEN ABLE TO DECREASE HIS MEDICATION INTAKE SINCE THE INJECTION AND HE IS SLEEPING BETTER AT NIGHT. PATIENT DENIES UNEXPLAINABLE WEIGHT LOSS, FEVER, CHILLS, NEW CHANGES ON HIS URINARY OR BOWEL CONTROL. FALL RISK SCREENING: SCREENING :NO FALLS IN THE PAST YEAR CURRENT MEDICATIONS TAKING NEURONTIN 400 MG CAPSULE CAPSULE ORALLY 2 CAPS PO TID FOR PAIN MDD6 TAKING TRAMADOL HCL 50 MG TABLET 1 TABLET NEEDED ORALLY FOR PAIN CODE D CHRONIC PAIN EVERY 6 HRS MDD2 TAKING CELEBREX 200 MG CAPSULE 1 CAPSULE ORALLY BID DAILY NEEDED MDD2 TAKING TOPROL XL 100 MG TABLET EXTENDED RELEASE 24 HOUR 1 TABLET ORALLY BID TAKING CRESTOR 40 MG TABLET 1 TABLET ORALLY ONCE A DAY TAKING OMEGA 3-6-9 - CAPSULE ORALLY BID TAKING SAW PALMETTO - CAPSULE ORALLY TID TAKING ECOTRIN 325 MG TABLET DELAYED RELEASE 1 TABLET ORALLY ONCE A DAY TAKING VITAMIN D-3 5000 UNIT TABLET ORALLY ONCE A DAY TAKING CALCIUM 1200 0745-1471 MG-UNIT TABLET CHEWABLE 1 TABLET WITH A MEAL ORALLY BID TAKING B COMPLEX - CAPSULE ORALLY DAILY TAKING OMEPRAZOLE 20 MG CAPSULE DELAYED RELEASE 1 CAP ORALLY ONCE A DAY TAKING TYLENOL 325 MG TABLET 2 TABLETS NEEDED ORALLY EVERY 6 HRS TAKING METFORMIN HCL 500 MG TABLET 1 TABLET WITH MEALS ORALLY TWICE A DAY TAKING TRENTAL 400 MG TABLET EXTENDED RELEASE 1 TABLET WITH MEALS ORALLY TID TAKING CYTOMEL 50 MCG TABLET 1 TABLET ON AN EMPTY STOMACH ORALLY ONCE A DAY TAKING RAMIPRIL 10 MG CAPSULE 1 CAPSULE ORALLY BID TAKING ZOLPIDEM TARTRATE ER 12.5 MG TABLET EXTENDED RELEASE 1 TABLET AT BEDTIME NEEDED ORALLY ONCE A DAY TAKING CLONAZEPAM 2 MG TABLET 1 TABLET ORALLY EVERY BEDTIME NEEDED FOR SLEEP TAKING TRILIPIX 135 MG CAPSULE DELAYED RELEASE 1 CAPSULE ORALLY ONCE A DAY TAKING SOMA 350 MG TABLET 1 TABLET NEEDED ORALLY THREE TIMES DAILY FOR SPASMS AND PAIN MDD3 NOT-TAKING ZOLPIDEM TARTRATE 10 MG TABLET 1 TABLET AT BEDTIME NEEDED ORALLY ONCE A DAY, NOTES: 12/23/15 2100 NOT-TAKING ALTACE 10 MG CAPSULE 1 CAPSULE ORALLY ONCE A DAY NOT-TAKING ALEVE 220 MG TABLET 1 TABLET NEEDED ORALLY EVERY 12 HRS, NOTES: NONE RECENTLY NOT-TAKING OXYCODONE-ACETAMINOPHEN 5-325 MG TABLET 1/2 TABLET NEEDED ORALLY EVERY 6 HRS, NOTES: 2 DAYS AGO NOT-TAKING ZETIA 10 MG TABLET 1 TABLET ORALLY ONCE A DAY, NOTES: 12/24/15 0900 NOT-TAKING ACCUPRIL 10 MG TABLET 1 TABLET ORALLY ONCE A DAY, NOTES: 1300 NOT-TAKING TOPROL XL 100 MG TABLET EXTENDED RELEASE 1 TABLET ORALLY BID, NOTES: 0700 NOT-TAKING OXYCODONE HCL 5 MG TABLET 1 TABLET ORALLY BEFORE BEDTIME NEEDED FOR PAIN MDD1 MEDICATION LIST REVIEWED AND RECONCILED WITH THE PATIENT PAST MEDICAL HISTORY AFIB, ONE EPISODE HYPERTENSION HIGH CHOLESTEROL NIDDM ? SLEEP APNEA GERD ARTHRITIS ALLERGIES OXYCODONE HCL: NAUSEA: SIDE EFFECTS SURGICAL HISTORY NO SURGICAL HISTORY DOCUMENTED. FAMILY HISTORY NO FAMILY HISTORY DOCUMENTED. SOCIAL HISTORY GENERAL: TOBACCO USE ARE YOU A:NONSMOKER LEARNING BARRIERS / SPECIAL NEEDS ORIENTED TO PLAN OF CARE: PATIENT, PAIN MANAGEMENT PATIENT, ORIENTED TO PLAN OF CARE: PATIENT, PAIN MANAGEMENT PATIENT. NEW PATIENT PAIN DIARY TODAY'S VISITNOTES FROM 0-10, WHAT LEVEL IS YOUR PAIN TODAY?0 PAIN CLINIC PFS, CLERGY, PUBLIC HEALTH REFERRALS PFS REFERRAL NEEDED?NO CLERGY REFERRAL NEEDED?NO PUBLIC HEALTH REFERRAL NEEDED?NO WAS THE PROVIDER NOTIFIED OF ANY PERTINENT INFO?NO PFS REFERRAL NEEDED?NO CLERGY REFERRAL NEEDED?NO PUBLIC HEALTH REFERRAL NEEDED?NO WAS THE PROVIDER NOTIFIED OF ANY PERTINENT INFO?NO HOSPITALIZATION/MAJOR DIAGNOSTIC PROCEDURE BLEEDING ULCER REVIEW OF SYSTEMS CONSTITUTIONAL: ANY CHANGE IN YOUR MEDICAL CONDITION? NO . CHILLS NO . FEVER NO . INFECTION: DO YOU HAVE NEW INFECTIONS? NO . DO YOU HAVE HISTORY OF MRSA? NO . MUSCULOSKELETAL: ANY NEW PATTERNS OF PAIN OR NUMBNESS? NO . GASTROENTEROLOGY: ANY NEW CHANGE IN BOWEL CONTROL? NO . GENITOURINARY: ANY NEW CHANGE IN BLADDER CONTROL? NO . IS THERE A CHANCE YOU COULD BE ? NO . HEMATOLOGY/LYMPH: DO YOU TAKE ANY BLOOD THINNERS? (FOR EXAMPLE- COUMADIN, PLAVIX, AGGRENOX, PLATEL, PRADAXA, OR XARELTO) NO . WHEN WAS YOUR LAST DOSE? DATE: TIME: . NEUROLOGY: HAVE YOU FALLEN IN THE PAST 6 MONTHS? YES . ANY NEW EXTREMITY NUMBNESS OR WEAKNESS? NO . CARDIOLOGY: DO YOU HAVE A PACEMAKER OR DEFIBRILLATOR? NO . RESPIRATORY: HAVE YOU BEEN SICK IN THE PAST WEEK? NO . FEVER NO . FLU LIKE SYMPTOMS? NO . COUGH NO . INTEGUMENTARY: DO YOU HAVE ANY RASHES OR OPEN SORES? NO . ALLERGIC/IMMUNO: ARE YOU ALLERGIC TO SHELLFISH OR IV DYE? NO . ANY NEW ALLERGIES? NO . PSYCHIATRIC: DO YOU HAVE THOUGHTS OF HURTING YOURSELF OR SOMEONE ELSE? NO . ARE YOU ABUSED, NEGLECTED, OR IN AN UNSAFE ENVIRONMENT? NO . ENDOCRINOLOGY: ARE YOU DIABETIC? YES . OTHER: DO YOU NEED ANY PRESCRIPTIONS? YES . IF YES, PLEASE LIST: AMBIEN XR , SOMA , CELEBREX . ANY NEW PROBLEMS WITH YOUR MEDICATIONS? NO . WHEN DID YOU LAST EAT? ____ . WHEN DID YOU LAST DRINK? ____ . WHAT DID YOU LAST DRINK? ____ . NAME OF PERSON DRIVING YOU HOME? ____ . DO YOU HAVE ANY OTHER QUESTIONS OR CONCERNS NO . REVIEWED BY: PROVIDER: LARON JOHNSON MD . VITAL SIGNS WT 248 LBS, HT 70 IN, BMI 35.58 INDEX, BP 125/68 MM HG, HR 70 /MIN, RR 16 /MIN, TEMP 97.8 F, OXYGEN SAT % 96, NA INITIALS AW 1600, REVIEWED BY: NL. EXAMINATION : PATIENT IS ALERT O X 3 AND COOPERATIVE. THERE IS SOME TENDERNESS IN THE LOW BACK. ASSESSMENTS SPONDYLOSIS WITHOUT MYELOPATHY OR RADICULOPATHY, LUMBAR REGION - M47.816 (PRIMARY) SPONDYLOSIS WITHOUT MYELOPATHY OR RADICULOPATHY, LUMBOSACRAL REGION - M47.817 TREATMENT SPONDYLOSIS WITHOUT MYELOPATHY OR RADICULOPATHY, LUMBAR REGION NOTES: WE DISCUSSED SEVERAL ISSUES WITH MR. TOVAR'S PAIN MANAGEMENT CASE. AT THIS TIME THE PATIENT WILL CONTINUE ON THE SAME MEDICATION REGIMEN BEFORE AND WILL RECEIVED REFILLS OF THE NEEDED MEDICATIONS TODAY. AT THIS TIME MR. TOVAR IS DOING VERY WELL, HE WILL FOLLOW UP WITH ME IN 2 MONTHS AND WILL CALL IF HE NEEDS TO BE SEEN SOONER. I WILL ORDER A UTOX TODAY. INSTRUCTIONS WERE GIVEN, QUESTIONS WERE ANSWERED, PATIENT REPORTS UNDERSTANDING AND AGREES WITH THE PLAN. I, KAELA CARTER, DOCUMENTED THE ABOVE INFORMATION ACTING A SCRIBE FOR DR. JOHNSON. I HAVE REVIEWED THE ABOVE DOCUMENT, WRITTEN BY KAELA CARTER SCRIBE AND I VERIFY THAT IT IS ACCURATE. OTHERS REFILL NEURONTIN CAPSULE, 400 MG, CAPSULE, ORALLY, 2 CAPS PO TID FOR PAIN MDD6, 30 DAY(S), 180, REFILLS 2 REFILL TRAMADOL HCL TABLET, 50 MG, 1 TABLET NEEDED, ORALLY FOR PAIN CODE D CHRONIC PAIN, EVERY 6 HRS MDD2, 60 DAYS, 100, REFILLS 0 REFILL CELEBREX CAPSULE, 200 MG, 1 CAPSULE, ORALLY, BID DAILY NEEDED MDD2, 30 DAY(S), 50, REFILLS 1 REFILL SOMA TABLET, 350 MG, 1 TABLET NEEDED, ORALLY, BID FOR PAIN MDD2, 30 DAY(S), 60, REFILLS 0 PROCEDURE CODES FA211 ESTABILISHED PATIENT [facility] FACILITY CHARGE G8730 PAIN ASSESS POS TOOL F/U PLAN DOC G8427 DOC MEDS VERIFIED W/PT OR RE DISPOSITION & COMMUNICATION FOLLOW UP 2 MONTHS ELECTRONICALLY SIGNED BY LARON JOHNSON MD ON 07/18/2016 AT 07:50 PM EDT DISCLAIMER : THIS IS A VISIT SUMMARY EXTRACTED FROM THE [employer] CHART. IT IS NOT A COPY OF THE [employer] PROGRESS NOTE. [facility]
== END ==
LOC: M PAIN 15:40
PROVIDERS: ATTEND Anesthesiology
DX: G89.29 Other chronic pain (principal); M47.816 Spondylosis without myelopathy or radiculopathy, lumbar region; M47.817 Spondylosis without myelopathy or radiculopathy, lumbosacral region; I10 Essential (primary) hypertension; I48.91 Unspecified atrial fibrillation; E78.00 Pure hypercholesterolemia, unspecified; E11.9 Type 2 diabetes mellitus without complications; K21.9 Gastro-esophageal reflux disease without esophagitis; M19.90 Unspecified osteoarthritis, unspecified site; Z88.5 Allergy status to narcotic agent; Z79.84 Long term (current) use of oral hypoglycemic drugs; Z79.891 Long term (current) use of opiate analgesic; Z79.899 Other long term (current) drug therapy

== ENCOUNTER → 2016-10-20 | Outpatient (REF) | payer OTHER ==
[2016-10-20 09:38] LABS: MEAN CORPUSCULAR HEMOGLOBIN 27.3 pg (27.0-33.0); MEAN CORPUSCULAR HGB CONC 32.4 g/dl (32.0-36.5); MEAN CORPUSCULAR VOLUME 84.4 fl (80.0-96.0); RED CELL DISTRIBUTION WIDTH 12.7 % (11.5-14.5); WHITE BLOOD COUNT 5.7 K/mm3 (4.0-10.0)
[2016-10-20 09:51] LABS: ALBUMIN/GLOBULIN RATIO 1.48 (1.00-1.93); ALKALINE PHOSPHATASE 55 U/L (45-117); ALT/SGPT 37 U/L (12-78); ANION GAP 8 MEQ/L (8-16); AST/SGOT 20 U/L (15-37); BILIRUBIN,TOTAL 0.5 MG/DL (0.2-1.0); BLOOD UREA NITROGEN 15 MG/DL (7-18); CALCIUM LEVEL 9.6 MG/DL (8.8-10.2); CARBON DIOXIDE LEVEL 28 MEQ/L (21-32); CHLORIDE LEVEL 109 MEQ/L (98-107); CHOLESTEROL LEVEL 110 MG/DL (<200); CREATININE FOR GFR 0.81 MG/DL (0.70-1.30); GLOMERULAR FILTRATION RATE > 60.0 (>49); GLUCOSE, FASTING 98 MG/DL (80-110); POTASSIUM SERUM 4.4 MEQ/L (3.5-5.1); SODIUM LEVEL 145 MEQ/L (136-145); TOTAL PROTEIN 6.7 GM/DL (6.4-8.2); TRIGLYCERIDES LEVEL 138 MG/DL (<150)
== END ==
LOC: M LAB REF 07:25
PROVIDERS: ATTEND Internal Medicine Cardiovascular Disease
DX: E78.5 Hyperlipidemia, unspecified (principal); I10 Essential (primary) hypertension; R73.03 Prediabetes

== ENCOUNTER → 2016-11-24 | Outpatient (CLI) | payer OTHER ==
--- NOTE | 2016-12-06 02:38 | ECWPNPC ---
PATIENT NAME: KALEE TOVAR : 1955 GENDER: MALE VISIT DATE: 11/24/2016 DISCHARGE DATE: 11/24/16 1537 VISIT LOCKED DATE TIME: PHYSICIAN: LARON JOHNSON RESOURCE: LARON JOHNSON REASON FOR APPOINTMENT 1. NECK AND BACK HISTORY OF PRESENT ILLNESS HISTORY OF PRESENT ILLNESS: PAIN THE PATIENT DESCRIBES THE PAIN... 61 YEAR OLD MALE PATIENT WITH HISTORY OF CHRONIC BACK AND NECK PAIN. PATIENT DESCRIBES THE PAIN ACHING WITH A PAIN SCORE OF 4-5/10 ON TODAY'S VISIT. PATIENT RECEIVED A BILATERAL LUMBAR THERAPEUTIC FACET BLOCK L4-L5 AND L5-S1 ON 04/14/16 AND STATES THAT IT PROVIDED GOOD PAIN RELIEF WITH MORE THAN 50 PERCENT IN THE REDUCTION OF PAIN FOR OVER 4 MONTHS. PATIENT REPORTS THE PAIN STARTING TO SLOWLY RETURN AT THIS TIME. CURRENTLY THE PATIENT IS USING CELEBREX, SOMA, GABAPENTIN AND TRAMADOL FOR PAIN MANAGEMENT. PATIENT STATES THE MEDICATIONS AIDS IN RELIEF SIGNIFICANTLY. PATIENT DENIES UNEXPLAINABLE WEIGHT LOSS, FEVER, CHILLS, NEW CHANGES ON HIS URINARY OR BOWEL CONTROL. FALL RISK SCREENING: SCREENING :NO FALLS IN THE PAST YEAR CURRENT MEDICATIONS TAKING NEURONTIN 400 MG CAPSULE CAPSULE ORALLY 2 CAPS PO TID FOR PAIN MDD6 TAKING CELEBREX 200 MG CAPSULE 1 CAPSULE ORALLY BID DAILY NEEDED MDD2 TAKING TOPROL XL 100 MG TABLET EXTENDED RELEASE 24 HOUR 1 TABLET ORALLY BID TAKING CRESTOR 40 MG TABLET 1 TABLET ORALLY ONCE A DAY TAKING OMEGA 3-6-9 - CAPSULE ORALLY BID TAKING SAW PALMETTO - CAPSULE ORALLY TID TAKING ECOTRIN 325 MG TABLET DELAYED RELEASE 1 TABLET ORALLY ONCE A DAY TAKING VITAMIN D-3 5000 UNIT TABLET ORALLY ONCE A DAY TAKING CALCIUM 1200 5371-0801 MG-UNIT TABLET CHEWABLE 1 TABLET WITH A MEAL ORALLY BID TAKING B COMPLEX - CAPSULE ORALLY DAILY TAKING OMEPRAZOLE 20 MG CAPSULE DELAYED RELEASE 1 CAP ORALLY ONCE A DAY TAKING TYLENOL 325 MG TABLET 2 TABLETS NEEDED ORALLY EVERY 6 HRS TAKING METFORMIN HCL 500 MG TABLET 1 TABLET WITH MEALS ORALLY TID TAKING TRENTAL 400 MG TABLET EXTENDED RELEASE 1 TABLET WITH MEALS ORALLY TID TAKING CYTOMEL 50 MCG TABLET 1 TABLET ON AN EMPTY STOMACH ORALLY ONCE A DAY TAKING RAMIPRIL 10 MG CAPSULE 1 CAPSULE ORALLY BID TAKING ZOLPIDEM TARTRATE ER 12.5 MG TABLET EXTENDED RELEASE 1 TABLET AT BEDTIME NEEDED ORALLY ONCE A DAY TAKING CLONAZEPAM 2 MG TABLET 1 TABLET ORALLY EVERY BEDTIME NEEDED FOR SLEEP TAKING TRILIPIX 135 MG CAPSULE DELAYED RELEASE 1 CAPSULE ORALLY ONCE A DAY TAKING SOMA 350 MG TABLET 1 TABLET NEEDED ORALLY BID FOR PAIN MDD2 TAKING TRAMADOL HCL 50 MG TABLET 1 TABLET NEEDED ORALLY FOR PAIN CODE D CHRONIC PAIN EVERY 6 HRS MDD2 UNKNOWN ZOLPIDEM TARTRATE 10 MG TABLET 1 TABLET AT BEDTIME NEEDED ORALLY ONCE A DAY, NOTES: 12/23/15 2100 UNKNOWN ALTACE 10 MG CAPSULE 1 CAPSULE ORALLY ONCE A DAY UNKNOWN ALEVE 220 MG TABLET 1 TABLET NEEDED ORALLY EVERY 12 HRS, NOTES: NONE RECENTLY UNKNOWN OXYCODONE-ACETAMINOPHEN 5-325 MG TABLET 1/2 TABLET NEEDED ORALLY EVERY 6 HRS, NOTES: 2 DAYS AGO UNKNOWN ZETIA 10 MG TABLET 1 TABLET ORALLY ONCE A DAY, NOTES: 12/24/15 0900 UNKNOWN ACCUPRIL 10 MG TABLET 1 TABLET ORALLY ONCE A DAY, NOTES: 1300 UNKNOWN TOPROL XL 100 MG TABLET EXTENDED RELEASE 1 TABLET ORALLY BID, NOTES: 0700 UNKNOWN OXYCODONE HCL 5 MG TABLET 1 TABLET ORALLY BEFORE BEDTIME NEEDED FOR PAIN MDD1 MEDICATION LIST REVIEWED AND RECONCILED WITH THE PATIENT PAST MEDICAL HISTORY AFIB, ONE EPISODE HYPERTENSION HIGH CHOLESTEROL NIDDM ? SLEEP APNEA GERD ARTHRITIS ALLERGIES OXYCODONE HCL: NAUSEA: SIDE EFFECTS SURGICAL HISTORY C7-T1 FUSION TITANIUM PLATE BILAT ROTATOR CUFF REPAIR BILAT BICEPS RUPTURED WITH SURGICAL ATTEMPT LAPRASCOPIC EXPLORATORY X4 CHOLECYSTECTOMY SOCIAL HISTORY GENERAL: TOBACCO USE ARE YOU A:NONSMOKER LEARNING BARRIERS / SPECIAL NEEDS ORIENTED TO PLAN OF CARE: PATIENT, PAIN MANAGEMENT PATIENT, ORIENTED TO PLAN OF CARE: PATIENT, PAIN MANAGEMENT PATIENT. NEW PATIENT PAIN DIARY TODAY'S VISITNOTES FROM 0-10, WHAT LEVEL IS YOUR PAIN TODAY?0 PAIN CLINIC PFS, CLERGY, PUBLIC HEALTH REFERRALS PFS REFERRAL NEEDED?NO CLERGY REFERRAL NEEDED?NO PUBLIC HEALTH REFERRAL NEEDED?NO WAS THE PROVIDER NOTIFIED OF ANY PERTINENT INFO?NO HAS THE PATIENT BEEN EDUCATED REGARDING HIS/HER PLAN OF CARE?YES HAS THE PATIENT BEEN EDUCATED REGARDING PAIN, THE RISK FOR PAIN, THE IMPORTANCE OF EFFECTIVE PAIN MANAGEMENT, AND THE PAIN ASSESSMENT PROCESS?YES HOSPITALIZATION/MAJOR DIAGNOSTIC PROCEDURE BLEEDING ULCER X2 REVIEW OF SYSTEMS REVIEWED BY: PROVIDER: LARON JOHNSON MD . CONSTITUTIONAL: ANY CHANGE IN YOUR MEDICAL CONDITION? NO . CHILLS NO . FEVER NO . INFECTION: DO YOU HAVE NEW INFECTIONS? NO . DO YOU HAVE HISTORY OF MRSA? NO . MUSCULOSKELETAL: ANY NEW PATTERNS OF PAIN OR NUMBNESS? YES, PT REQUESTING TO DISCUSS ACROMIAL CLAVICULAR JOINT AND GLENOHUMERAL JOINT PAIN . GASTROENTEROLOGY: ANY NEW CHANGE IN BOWEL CONTROL? NO . GENITOURINARY: ANY NEW CHANGE IN BLADDER CONTROL? NO . IS THERE A CHANCE YOU COULD BE ? NO . HEMATOLOGY/LYMPH: DO YOU TAKE ANY BLOOD THINNERS? (FOR EXAMPLE- COUMADIN, PLAVIX, AGGRENOX, PLATEL, PRADAXA, OR XARELTO) NO . WHEN WAS YOUR LAST DOSE? DATE: TIME: . NEUROLOGY: HAVE YOU FALLEN IN THE PAST 6 MONTHS? NO . ANY NEW EXTREMITY NUMBNESS OR WEAKNESS? NO . CARDIOLOGY: DO YOU HAVE A PACEMAKER OR DEFIBRILLATOR? NO . RESPIRATORY: HAVE YOU BEEN SICK IN THE PAST WEEK? NO . FEVER NO . FLU LIKE SYMPTOMS? NO . COUGH NO . INTEGUMENTARY: DO YOU HAVE ANY RASHES OR OPEN SORES? NO . ALLERGIC/IMMUNO: ARE YOU ALLERGIC TO SHELLFISH OR IV DYE? NO . ANY NEW ALLERGIES? NO . PSYCHIATRIC: DO YOU HAVE THOUGHTS OF HURTING YOURSELF OR SOMEONE ELSE? NO . ARE YOU ABUSED, NEGLECTED, OR IN AN UNSAFE ENVIRONMENT? NO . ENDOCRINOLOGY: ARE YOU DIABETIC? YES . OTHER: DO YOU NEED ANY PRESCRIPTIONS? YES, SOMA, CELEBREX . IF YES, PLEASE LIST: ____ . ANY NEW PROBLEMS WITH YOUR MEDICATIONS? NO . WHEN DID YOU LAST EAT? ____ . WHEN DID YOU LAST DRINK? ____ . WHAT DID YOU LAST DRINK? ____ . NAME OF PERSON DRIVING YOU HOME? ____ . DO YOU HAVE ANY OTHER QUESTIONS OR CONCERNS NO, PT STATES HE RECEIVED FLU VACCINE LAST WEEK. DISCUSSED AVOIDING FLU VACCINE WITHIN A MONTH OF PROCEDURES WITH US . VITAL SIGNS WT 224 LBS, HT 70 IN, BMI 32.14 INDEX, BP 121/57 MM HG, HR 68 /MIN, RR 16 /MIN, TEMP 97.0 F, OXYGEN SAT % 94%, NA INITIALS AW 1500, REVIEWED BY: EM. EXAMINATION : PATIENT IS ALERT O X 3 AND COOPERATIVE. PATIENT HAS STIFFNESS IN THE LOWER BACK WHEN AMBULATING. THERE IS TENDERNESS AND PAIN IN THE LOWER BACK AREA. PATIENT HAS SACROILIAC TENDERNESS. MRI OF THE LUMBAR SPINE DONE ON 12/22/2015 SHOWS FACET ARTHROPATHY CHANGES AND DISC BULGES. ASSESSMENTS MID-CERVICAL DISC DISORDER, UNSPECIFIED - M50.120 (PRIMARY) INTERVERTEBRAL DISC DISORDER WITH RADICULOPATHY OF LUMBOSACRAL REGION - M51.17 MYALGIA - M79.1 TREATMENT MID-CERVICAL DISC DISORDER, UNSPECIFIED NOTES: WE DISCUSSED SEVERAL ISSUES WITH MR. TOVAR'S PAIN MANAGEMENT CASE. AT THIS TIME THE PATIENT WILL CONTINUE WITH THE SAME MEDICATION REGIME BEFORE. PATIENT IS USING THE CELEBREX FOR THE INFLAMMATION, SOMA FOR THE MUSCLE SPASMS, GABAPENTIN FOR THE NEUROPATHIC PAIN AND TRAMADOL FOR THE SOMATIC PAIN. PATIENT DENEIS ABUSE OF ANY MEDICATION, DENIES USE OF ILLEGAL SUBSTACNES, AND STATES HE IS ONLY USING THE MEDICATION FOR PAIN MANAGEMENT. URINE TOXICOLOGY DONE ON 07/07/16 SHOWS CONSISTENT RESULTS WITH THE PATIENT'S MEDICATION LIST. ISTOP REVIEWED [id number]. DUE TO THE PAIN SLOWLY INCREASING I WOULD LIKE TO PROCEED WITH TRIGGER POINT INJECTIONS DUE TO THE RELIEF THE PATIENT HAS GOTTEN IN THE PAST. WE DISCUSSED THE RISKS, BENENFITS, AND ALTNERATIVES OF THE INJECTION AND THE PATIENT WOULD LIKE TO PROCEED AT THIS TIME. INSTRUCTIONS WERE GIVEN, QUESTIONS WERE ANSWERED, PATIENT REPORTS UNDERSTANDING AND AGREES WITH THE PLAN. I, ROMMEL ARRIAZA, DOCUMENTED THE ABOVE INFORMATION ACTING A SCRIBE FOR DR. JOHNSON. I HAVE REVIEWED THE ABOVE DOCUMENT, WRITTEN BY ROMMEL CAR AND I VERIFY THAT IT IS ACCURATE. OTHERS REFILL CELEBREX CAPSULE, 200 MG, 1 CAPSULE, ORALLY, BID DAILY NEEDED MDD2, 30 DAY(S), 50, REFILLS 2 REFILL SOMA TABLET, 350 MG, 1 TABLET NEEDED, ORALLY, BID FOR PAIN MDD2, 30 DAY(S), 60, REFILLS 0 PROCEDURE CODES FA211 ESTABILISHED PATIENT [facility] FACILITY CHARGE G8427 DOC MEDS VERIFIED W/PT OR RE G8730 PAIN ASSESS POS TOOL F/U PLAN DOC DISPOSITION & COMMUNICATION FOLLOW UP TPI AFTER APPROVAL ELECTRONICALLY SIGNED BY LARON JOHNSON MD ON 12/05/2016 AT 12:37 PM EDT DISCLAIMER : THIS IS A VISIT SUMMARY EXTRACTED FROM THE [employer] CHART. IT IS NOT A COPY OF THE [employer] PROGRESS NOTE. MTDD
== END ==
LOC: M PAIN 15:00
PROVIDERS: ATTEND Anesthesiology
DX: G89.29 Other chronic pain (principal); M50.120 Mid-cervical disc disorder, unspecified level; M51.17 Intervertebral disc disorders with radiculopathy, lumbosacral region; M79.1 Myalgia; I10 Essential (primary) hypertension; E78.00 Pure hypercholesterolemia, unspecified; E11.9 Type 2 diabetes mellitus without complications; K21.9 Gastro-esophageal reflux disease without esophagitis; Z88.5 Allergy status to narcotic agent; Z79.84 Long term (current) use of oral hypoglycemic drugs; Z79.891 Long term (current) use of opiate analgesic; Z79.899 Other long term (current) drug therapy

== ENCOUNTER → 2017-01-26 | Outpatient (CLI) | payer OTHER | LOC: M PAIN 15:15 | DX: G89.29 Other chronic pain (principal); M47.812 Spondylosis without myelopathy or radiculopathy, cervical region; M79.1 Myalgia; I10 Essential (primary) hypertension; E11.9 Type 2 diabetes mellitus without complications; K21.9 Gastro-esophageal reflux disease without esophagitis; Z88.5 Allergy status to narcotic agent; Z79.84 Long term (current) use of oral hypoglycemic drugs; Z79.891 Long term (current) use of opiate analgesic; Z79.899 Other long term (current) drug therapy | CPT/HCPCS: G0463 ==

== ENCOUNTER → 2017-01-31 | Outpatient (CLI) | payer OTHER ==
--- NOTE | 2017-02-01 10:46 | REP ---
Cervical spine series: Single view. History: Injection procedure for pain. 22 seconds of fluoroscopy time is reported. Findings: A single last image hold fluoroscopically obtained spot radiograph of the cervical spine documents various needle positions and contrast injections associated with injection procedure. Signed by Carrillo Elizabeth MD 02/01/2017 03:55 P
--- NOTE | 2017-02-05 23:05 | ECWPNPC ---
PATIENT NAME: KALEE TOVAR : 1955 GENDER: MALE VISIT DATE: 01/31/2017 DISCHARGE DATE: 01/31/17 164 VISIT LOCKED DATE TIME: PHYSICIAN: LARON JOHNSON RESOURCE: LARON JOHNSON REASON FOR APPOINTMENT 1. CFBT HISTORY OF PRESENT ILLNESS HISTORY OF PRESENT ILLNESS: PAIN THE PATIENT DESCRIBES THE PAIN... FALL RISK SCREENING: SCREENING :NO FALLS IN THE PAST YEAR CURRENT MEDICATIONS TAKING TOPROL XL 100 MG TABLET EXTENDED RELEASE 24 HOUR 1 TABLET ORALLY BID, NOTES: 0700 TAKING CRESTOR 40 MG TABLET 1 TABLET ORALLY ONCE A DAY, NOTES: 1200 TAKING OMEGA 3-6-9 - CAPSULE ORALLY BID, NOTES: 01/30/17 TAKING SAW PALMETTO - CAPSULE ORALLY TID, NOTES: 0700 TAKING ECOTRIN 325 MG TABLET DELAYED RELEASE 1 TABLET ORALLY ONCE A DAY, NOTES: 2 DAYS AGO TAKING VITAMIN D-3 5000 UNIT TABLET ORALLY ONCE A DAY, NOTES: 0700 TAKING CALCIUM 1200 3335-5064 MG-UNIT TABLET CHEWABLE 1 TABLET WITH A MEAL ORALLY BID, NOTES: 0700 TAKING B COMPLEX - CAPSULE ORALLY DAILY, NOTES: TAKING OMEPRAZOLE 20 MG CAPSULE DELAYED RELEASE 1 CAP ORALLY ONCE A DAY, NOTES: 1 WEEK AGO TAKING TYLENOL 325 MG TABLET 2 TABLETS NEEDED ORALLY EVERY 6 HRS, NOTES: 01/30/17 TAKING METFORMIN HCL 500 MG TABLET 1 TABLET WITH MEALS ORALLY TID, NOTES: 01/30/17 TAKING TRENTAL 400 MG TABLET EXTENDED RELEASE 1 TABLET WITH MEALS ORALLY TID, NOTES: 0700 TAKING CYTOMEL 50 MCG TABLET 1 TABLET ON AN EMPTY STOMACH ORALLY ONCE A DAY, NOTES: 0700 TAKING RAMIPRIL 10 MG CAPSULE 1 CAPSULE ORALLY BID, NOTES: 01/30/17 TAKING ZOLPIDEM TARTRATE ER 12.5 MG TABLET EXTENDED RELEASE 1 TABLET AT BEDTIME NEEDED ORALLY ONCE A DAY, NOTES: 01/30/17 TAKING CLONAZEPAM 2 MG TABLET 1 TABLET ORALLY BID, NOTES: 01/30/17 TAKING TRILIPIX 135 MG CAPSULE DELAYED RELEASE 1 CAPSULE ORALLY ONCE A DAY, NOTES: 0700 TAKING ZETIA 10 MG TABLET 1 TABLET ORALLY ONCE A DAY, NOTES: 0700 TAKING CENTRUM - TABLET 1 CAP ORALLY BID, NOTES: 0700 TAKING CO Q 10 200 MG CAPSULE 1 CAPSULE WITH A MEAL ORALLY ONCE A DAY, NOTES: 0700 TAKING NEURONTIN 400 MG CAPSULE 2 CAPSULE ORALLY QID FOR PAIN MDD8, NOTES: 01/30/17@2100 TAKING CELEBREX 200 MG CAPSULE 1 CAPSULE ORALLY BID DAILY NEEDED MDD2, NOTES: 0700 TAKING TRAMADOL HCL 50 MG TABLET 1 TABLET NEEDED ORALLY FOR PAIN EVERY 6 HRS MDD3, NOTES: 01/30/17@2099 TAKING SOMA 350 MG TABLET 1 TABLET NEEDED ORALLY FOR SPSMS AND PAIN EVERY 6 HOURS NEEDED, NOTES: 01/30/17@2100 MEDICATION LIST REVIEWED AND RECONCILED WITH THE PATIENT PAST MEDICAL HISTORY AFIB, ONE EPISODE HYPERTENSION HIGH CHOLESTEROL NIDDM ? SLEEP APNEA GERD ARTHRITIS ALLERGIES OXYCODONE HCL: NAUSEA: SIDE EFFECTS REVIEW OF SYSTEMS REVIEWED BY: PROVIDER: . CONSTITUTIONAL: ANY CHANGE IN YOUR MEDICAL CONDITION? NO . CHILLS NO . FEVER NO . INFECTION: DO YOU HAVE NEW INFECTIONS? NO . DO YOU HAVE HISTORY OF MRSA? NO . MUSCULOSKELETAL: ANY NEW PATTERNS OF PAIN OR NUMBNESS? NO . GASTROENTEROLOGY: ANY NEW CHANGE IN BOWEL CONTROL? NO . GENITOURINARY: ANY NEW CHANGE IN BLADDER CONTROL? NO . IS THERE A CHANCE YOU COULD BE ? NO . HEMATOLOGY/LYMPH: DO YOU TAKE ANY BLOOD THINNERS? (FOR EXAMPLE- COUMADIN, PLAVIX, AGGRENOX, PLATEL, PRADAXA, OR XARELTO) NO . WHEN WAS YOUR LAST DOSE? DATE: TIME: . NEUROLOGY: HAVE YOU FALLEN IN THE PAST 6 MONTHS? NO . ANY NEW EXTREMITY NUMBNESS OR WEAKNESS? NO . CARDIOLOGY: DO YOU HAVE A PACEMAKER OR DEFIBRILLATOR? NO . RESPIRATORY: HAVE YOU BEEN SICK IN THE PAST WEEK? NO . FEVER NO . FLU LIKE SYMPTOMS? NO . COUGH NO . INTEGUMENTARY: DO YOU HAVE ANY RASHES OR OPEN SORES? NO . ALLERGIC/IMMUNO: ARE YOU ALLERGIC TO SHELLFISH OR IV DYE? NO . ANY NEW ALLERGIES? NO . PSYCHIATRIC: DO YOU HAVE THOUGHTS OF HURTING YOURSELF OR SOMEONE ELSE? NO . ARE YOU ABUSED, NEGLECTED, OR IN AN UNSAFE ENVIRONMENT? NO . ENDOCRINOLOGY: ARE YOU DIABETIC? YES . OTHER: DO YOU NEED ANY PRESCRIPTIONS? NO . IF YES, PLEASE LIST: ____ . ANY NEW PROBLEMS WITH YOUR MEDICATIONS? NO . WHEN DID YOU LAST EAT? ____0700 . WHEN DID YOU LAST DRINK? ____1100 . WHAT DID YOU LAST DRINK? ____WATER . NAME OF PERSON DRIVING YOU HOME? ____LYDIA VELAZQUEZ . DO YOU HAVE ANY OTHER QUESTIONS OR CONCERNS NO . VITAL SIGNS WT 235 LBS, HT 70 IN, BMI 33.72 INDEX, BP 120/56 MM HG, HR 59 /MIN, RR 18 /MIN, TEMP 97.9 F, OXYGEN SAT % 97%, NA INITIALS SC 15:16. ASSESSMENTS SPONDYLOSIS OF CERVICAL REGION WITHOUT MYELOPATHY OR RADICULOPATHY - M47.812 (PRIMARY) PROCEDURES PN CERVICAL FACET BLOCK LOW BILATERAL CERVICAL PRE PROCEDURE DIAGNOSIS CERVICAL SPONDYLOSIS POST PROCEDURE DIAGNOSIS CERVICAL SPONDYLOSIS PROCEDURE BILATERAL C5-C6 AND BILATERAL C6-C7 THERAPEUTIC CERVICAL FACET BLOCK SURGEON DR. LARON JOHNSON PARLIAMENTARY COUNSEL NONE ANESTHESIA LOCAL PRE PROCEDURE NOTE THE PATIENT HAS HISTORY OF CHRONIC CERVICAL PAIN. I EVALUATE THE PATIENT AND REVIEWED THE CHART. I WENT OVER THE RISKS, ALTERNATIVES, AND BENEFITS ASSOCIATED WITH THIS PROCEDURE. THE PATIENT WOULD LIKE TO PROCEED AND GIVE CONSENT TO PERFORMED THE PROCEDURE. THE PATIENT DENIES UNEXPLAINABLE WEIGHT LOSS, FEVER, CHILLS, OR NEW CHANGES IN URINARY OR BOWEL CONTROL. DESCRIPTION OF PROCEDURE THE PATIENT WAS BROUGHT TO THE PROCEDURE ROOM AND PLACED IN THE PRONE POSITION. THE CERVICOTHORACIC AREA WAS CLEANED WITH CHLORAPREP SOLUTION AND DRAPED ASEPTICALLY. THE PROCEDURE WAS DONE UNDER STERILE CONDITIONS. I CHECKED LATERALITY AND THE LEVEL WHERE THE PROCEDURE WAS GOING TO BE PERFORMED WITH THE PATIENT AND THE SUPPORTING STAFF AT THE MOMENT OF THE TIME OUT IN THE PROCEDURE ROOM. UNDER FLUOROSCOPIC GUIDANCE, TARGET POINT WAS SELECTED AT THE RIGHT AND LEFT C5-C6 AND RIGHT AND LEFT C6-C7 CERVICAL FACET JOINT. TARGET POINTS WERE SELECTED AFTER LATERAL ROTATION AND TILT OF THE MAGNIFIER OF THE C-ARM. LIDOCAINE 0.5% WAS USED TO NUMB THE SKIN AND THE SUBCUTANEOUS TISSUE BELOW IT. SPINAL NEEDLES, 22-GAUGE, WERE ADVANCED UNDER FLUOROSCOPIC GUIDANCE AND FOLLOWING PATIENT FEEDBACK UNTIL THE TARGETS WERE TOUCHED. THE POSITION OF THE NEEDLES WAS VERIFIED WITH AP AND LATERAL VIEWS. AFTER PROPER POSITION OF THE NEEDLES WAS ACHIEVED, ISOVUE M DYE 30, 0.1 ML WAS INJECTED SHOWING SPREAD OF THE DYE. THEN A SOLUTION OF 0.9 ML OF BUPIVACAINE 0.125% AND KENALOG 10 MG WAS INJECTED AT EACH SITE. THERE WAS NO EVIDENCE OF BLOOD, PARESTHESIA OR CEREBROSPINAL FLUID DURING THE PROCEDURE. THE PATIENT WAS SENT TO THE RECOVERY ROOM. THE PATIENT WAS MOVING THE EXTREMITIES AND DOING WELL. THERE WAS NO COMPLICATION DURING THE PROCEDURE. FLUOROSCOPY TIME WAS 22 SECONDS POST PROCEDURE NOTE THE PATIENT WILL BE SEEN IN A FOLLOW UP IN THE NEXT FEW WEEKS. INSTRUCTIONS WERE GIVEN, QUESTIONS WERE ANSWERED, AND THE PATIENT EXPRESSED UNDERSTANDING AND AGREES WITH THE PLAN. I, ROMMEL ARRIAZA, DOCUMENTED THE ABOVE INFORMATION ACTING A SCRIBE FOR DR. JOHNSON. I HAVE REVIEWED THE ABOVE DOCUMENT, WRITTEN BY ROMMEL CAR AND I VERIFY THAT IT IS ACCURATE DIAGNOSTIC IMAGING [facility] FACET BLOCK (PAIN)[id number] PROCEDURE CODES 10755 INJ PARAVERT F JNT C/T 1 LEV, MODIFIERS: 50 [id number] INJ PARAVERT F JNT C/T 2 LEV, MODIFIERS: 50 [id number] RADXPS IN END [id number] PXD DISPOSITION & COMMUNICATION FOLLOW UP 2 WEEKS ELECTRONICALLY SIGNED BY LARON JOHNSON MD ON 02/05/2017 AT 10:44 PM EST DISCLAIMER : THIS IS A VISIT SUMMARY EXTRACTED FROM THE [employer] CHART. IT IS NOT A COPY OF THE [employer] PROGRESS NOTE. MTDD
== END ==
LOC: M PAIN 15:15
PROVIDERS: ATTEND Anesthesiology
DX: G89.29 Other chronic pain (principal); M47.812 Spondylosis without myelopathy or radiculopathy, cervical region; I10 Essential (primary) hypertension; E11.9 Type 2 diabetes mellitus without complications; G47.30 Sleep apnea, unspecified; K21.9 Gastro-esophageal reflux disease without esophagitis; Z88.5 Allergy status to narcotic agent; Z79.84 Long term (current) use of oral hypoglycemic drugs; Z79.891 Long term (current) use of opiate analgesic; Z79.899 Other long term (current) drug therapy
CPT/HCPCS: 64490; 64491; J3301; Q9967

== ENCOUNTER → 2017-04-13 | Outpatient (CLI) | payer OTHER | LOC: M PAIN 15:45 | DX: G89.29 Other chronic pain (principal); M47.812 Spondylosis without myelopathy or radiculopathy, cervical region; M47.816 Spondylosis without myelopathy or radiculopathy, lumbar region; M79.1 Myalgia; I10 Essential (primary) hypertension; E78.00 Pure hypercholesterolemia, unspecified; E11.9 Type 2 diabetes mellitus without complications; K21.9 Gastro-esophageal reflux disease without esophagitis; M19.90 Unspecified osteoarthritis, unspecified site; Z79.84 Long term (current) use of oral hypoglycemic drugs; Z79.891 Long term (current) use of opiate analgesic; Z79.899 Other long term (current) drug therapy; Z98.1 Arthrodesis status; Z90.49 Acquired absence of other specified parts of digestive tract; Z88.5 Allergy status to narcotic agent | CPT/HCPCS: G0463 ==

== ENCOUNTER → 2017-06-29 | Outpatient (CLI) | payer OTHER | LOC: M PAIN 15:45 | DX: G89.29 Other chronic pain (principal); M46.90 Unspecified inflammatory spondylopathy, site unspecified; M25.511 Pain in right shoulder; M19.019 Primary osteoarthritis, unspecified shoulder; I10 Essential (primary) hypertension; E78.00 Pure hypercholesterolemia, unspecified; E11.9 Type 2 diabetes mellitus without complications; K21.9 Gastro-esophageal reflux disease without esophagitis; Z98.1 Arthrodesis status; Z79.82 Long term (current) use of aspirin; Z79.84 Long term (current) use of oral hypoglycemic drugs; Z79.891 Long term (current) use of opiate analgesic; Z79.899 Other long term (current) drug therapy; Z88.5 Allergy status to narcotic agent | CPT/HCPCS: G0463 ==

== ENCOUNTER → 2017-08-17 | Outpatient (CLI) | payer OTHER | LOC: M PAIN 15:15 | DX: M46.90 Unspecified inflammatory spondylopathy, site unspecified (principal); M47.812 Spondylosis without myelopathy or radiculopathy, cervical region; G89.29 Other chronic pain; E11.9 Type 2 diabetes mellitus without complications; I10 Essential (primary) hypertension; E78.00 Pure hypercholesterolemia, unspecified; K21.9 Gastro-esophageal reflux disease without esophagitis; M19.90 Unspecified osteoarthritis, unspecified site; Z79.84 Long term (current) use of oral hypoglycemic drugs; Z79.899 Other long term (current) drug therapy; Z88.5 Allergy status to narcotic agent | CPT/HCPCS: G0463 ==

== ENCOUNTER 2017-09-25 18:44 | Emergency (ER) | payer OTHER ==
[2017-09-25] MEDS: NS 1,000 ML IV (20:43)
[2017-09-25] MEDS: ONDANSETRON 4MG/2ML VIAL (J2405) IV (20:45)
[2017-09-25] MEDS: KETOROLAC 30 MG/ML VIAL (J1885) IV (20:46)
[2017-09-25] MEDS: MORPHINE 2 MG/ML 1ML SYRINGE (J2270) IV (20:47)
[2017-09-25 20:55] LABS: ALBUMIN 4.6 GM/DL (3.2-5.2); ALBUMIN/GLOBULIN RATIO 1.39 (1.00-1.93); ALKALINE PHOSPHATASE 35 U/L (45-117); ALT/SGPT 54 U/L (12-78); ANION GAP 13 MEQ/L (8-16); AST/SGOT 34 U/L (7-37); BILIRUBIN,DIRECT 0.2 MG/DL (0.0-0.2); BILIRUBIN,TOTAL 0.4 MG/DL (0.2-1.0); BLOOD UREA NITROGEN 27 MG/DL (7-18); CALCIUM LEVEL 10.2 MG/DL (8.8-10.2); CARBON DIOXIDE LEVEL 26 MEQ/L (21-32); CHLORIDE LEVEL 103 MEQ/L (98-107); CREATININE FOR GFR 1.67 MG/DL (0.70-1.30); GLOMERULAR FILTRATION RATE 44.7 (>49); GLUCOSE, FASTING 122 MG/DL (70-100); LIPASE 234 U/L (73-393); POTASSIUM SERUM 4.1 MEQ/L (3.5-5.1); SODIUM LEVEL 142 MEQ/L (136-145); TOTAL PROTEIN 7.9 GM/DL (6.4-8.2)
[2017-09-25 21:01] LABS: BASO # 0.1 10^3/uL (0.0-0.2); BASO % 0.4 % (0.0-1.0); EOS # 0.1 10^3/uL (0.0-0.50); EOS % 0.6 % (0.0-3.0); HEMATOCRIT 43.2 % (42.0-52.0); HEMOGLOBIN 14.2 g/dl (13.5-17.5); IMMATURE GRANULOCYTE % 0.3 % (0-3.0); LYMPH # 1.5 10^3/uL (1.5-4.5); LYMPH % 9.5 % (24.0-44.0); MEAN CORPUSCULAR HEMOGLOBIN 28.4 pg (27.0-33.0); MEAN CORPUSCULAR HGB CONC 32.9 g/dl (32.0-36.5); MEAN CORPUSCULAR VOLUME 86.4 fl (80.0-96.0); MONO # 0.8 10^3/uL (0.0-0.8); NEUTROPHILS # 13.2 10^3/uL (1.8-7.7); NEUTROPHILS % 84.2 % (36.0-66.0); PLATELET COUNT, AUTOMATED 195 10^3/uL (150-450); RED CELL DISTRIBUTION WIDTH 12.5 % (11.5-14.5); WHITE BLOOD COUNT 15.7 10^3/uL (4.0-10.0)
[2017-09-25 21:05] LABS: INR 1.06; PROTHROMBIN TIME 13.9 SECONDS (12.1-14.4)
[2017-09-25 21:37] LABS: AMORPHOUS SEDIMENT RFX MODERATE (NEGATIVE); KETONE, URINE AUTO RFX NEGATIVE (NEGATIVE); LEUKOCYTE ESTERASE UR AUTO RFX NEGATIVE (NEGATIVE); MUCUS, URINE RFX SMALL (NEGATIVE); NITRITE, URINE AUTO RFX NEGATIVE (NEGATIVE); RBC, URINE AUTO RFX 62 /HPF (0-3); SPECIFIC GRAVITY UR AUTO RFX 1.018 (1.002-1.035); SQUAM EPITHELIAL CELL UR AURFX 0 /HPF (0-6); WBC, URINE AUTO RFX 1 /HPF (0-3)
== END 2017-09-25 22:50 | disposition home or self-care (01) ==
LOC: M ED 18:44
DX: N20.1 Calculus of ureter (principal); I10 Essential (primary) hypertension; K27.9 Peptic ulcer, site unspecified, unspecified as acute or chronic, without hemorrhage or perforation; Z87.442 Personal history of urinary calculi; Z79.899 Other long term (current) drug therapy; Z79.82 Long term (current) use of aspirin
CPT/HCPCS: J2405

== ENCOUNTER → 2017-12-20 | Outpatient (CLI) | payer OTHER ==
[~2017-12-20] MED LIST changes: +BUPIVACAINE HCL 0.25% 30 ML VIAL As Ordered; -BUPIVACAINE HCL 0.25% 30 ML VIAL As Ordered ONE; +ISOVUE-M 300 61% 15ML VIAL (Q9967) As Ordered; -ISOVUE-M 300 61% 15ML VIAL (Q9967) As Ordered ONE; +LIDOCAINE 1% SDV INJ 30 ML VIAL As Ordered; -LIDOCAINE 1% SDV INJ 30 ML VIAL As Ordered ONE; +TRIAMCINOLONE ACETONIDE SUSP 40 MG/ML VIAL (J3301) As Ordered; -TRIAMCINOLONE ACETONIDE SUSP 40 MG/ML VIAL (J3301) As Ordered ONE
== END ==
LOC: M PAIN 14:30
DX: G89.29 Other chronic pain (principal); M47.812 Spondylosis without myelopathy or radiculopathy, cervical region; I10 Essential (primary) hypertension; E78.00 Pure hypercholesterolemia, unspecified; K21.9 Gastro-esophageal reflux disease without esophagitis; M19.90 Unspecified osteoarthritis, unspecified site; E66.01 Morbid (severe) obesity due to excess calories; Z68.35 Body mass index [BMI] 35.0-35.9, adult; Z79.84 Long term (current) use of oral hypoglycemic drugs; Z79.899 Other long term (current) drug therapy; Z88.5 Allergy status to narcotic agent; Z86.39 Personal history of other endocrine, nutritional and metabolic disease
CPT/HCPCS: J3301

== ENCOUNTER → 2017-12-21 | Outpatient (CLI) | payer OTHER ==
[2017-12-21 10:08] LABS: BASO % 0.3 % (0.0-1.0); EOS # 0.1 10^3/uL (0.0-0.50); EOS % 0.6 % (0.0-3.0); HEMATOCRIT 39.3 % (42.0-52.0); HEMOGLOBIN 13.1 g/dl (13.5-17.5); IMMATURE GRANULOCYTE % 0.3 % (0-3.0); LYMPH # 1.4 10^3/uL (1.5-4.5); LYMPH % 12.6 % (24.0-44.0); MEAN CORPUSCULAR HEMOGLOBIN 27.9 pg (27.0-33.0); MEAN CORPUSCULAR HGB CONC 33.3 g/dl (32.0-36.5); MEAN CORPUSCULAR VOLUME 83.6 fl (80.0-96.0); MONO # 0.8 10^3/uL (0.0-0.8); MONO % 7.2 % (0.0-5.0); NEUTROPHILS # 8.6 10^3/uL (1.8-7.7); PLATELET COUNT, AUTOMATED 163 10^3/uL (150-450); RED CELL DISTRIBUTION WIDTH 13.5 % (11.5-14.5); WHITE BLOOD COUNT 10.8 10^3/uL (4.0-10.0)
[2017-12-21 10:40] LABS: ESTIMATED AVERAGE GLUCOSE 117 MG/DL (60-110); HEMOGLOBIN A1c 5.7 %
[2017-12-21 10:42] LABS: ALBUMIN 4.2 GM/DL (3.2-5.2); ALBUMIN/GLOBULIN RATIO 1.35 (1.00-1.93); ALKALINE PHOSPHATASE 35 U/L (45-117); ALT/SGPT 25 U/L (12-78); ANION GAP 7 MEQ/L (8-16); AST/SGOT 12 U/L (7-37); BILIRUBIN,TOTAL 0.3 MG/DL (0.2-1.0); BLOOD UREA NITROGEN 22 MG/DL (7-18); CALCIUM LEVEL 9.2 MG/DL (8.8-10.2); CARBON DIOXIDE LEVEL 26 MEQ/L (21-32); CHLORIDE LEVEL 107 MEQ/L (98-107); CREATININE FOR GFR 1.11 MG/DL (0.70-1.30); GLOMERULAR FILTRATION RATE > 60.0 (>49); GLUCOSE, FASTING 166 MG/DL (70-100); POTASSIUM SERUM 4.2 MEQ/L (3.5-5.1); SODIUM LEVEL 140 MEQ/L (136-145); TOTAL PROTEIN 7.3 GM/DL (6.4-8.2)
== END ==
LOC: M LAB 09:33
DX: I87.2 Venous insufficiency (chronic) (peripheral) (principal); R73.09 Other abnormal glucose; I10 Essential (primary) hypertension
CPT/HCPCS: 80053

== ENCOUNTER → 2017-12-21 | Outpatient (CLI) | payer OTHER ==
[2017-12-21 10:08] LABS: BASO % 0.2 % (0.0-1.0); EOS # 0.1 10^3/uL (0.0-0.50); EOS % 0.6 % (0.0-3.0); HEMATOCRIT 40.7 % (42.0-52.0); HEMOGLOBIN 13.2 g/dl (13.5-17.5); IMMATURE GRANULOCYTE % 0.4 % (0-3.0); LYMPH # 1.3 10^3/uL (1.5-4.5); LYMPH % 12.6 % (24.0-44.0); MEAN CORPUSCULAR HEMOGLOBIN 27.5 pg (27.0-33.0); MEAN CORPUSCULAR HGB CONC 32.4 g/dl (32.0-36.5); MEAN CORPUSCULAR VOLUME 84.8 fl (80.0-96.0); MONO # 0.7 10^3/uL (0.0-0.8); MONO % 6.9 % (0.0-5.0); NEUTROPHILS # 8.5 10^3/uL (1.8-7.7); NEUTROPHILS % 79.3 % (36.0-66.0); PLATELET COUNT, AUTOMATED 176 10^3/uL (150-450); RED CELL DISTRIBUTION WIDTH 13.5 % (11.5-14.5); WHITE BLOOD COUNT 10.7 10^3/uL (4.0-10.0)
[2017-12-21 10:41] LABS: ALBUMIN 4.3 GM/DL (3.2-5.2); ALBUMIN/GLOBULIN RATIO 1.39 (1.00-1.93); ALKALINE PHOSPHATASE 32 U/L (45-117); ALT/SGPT 26 U/L (12-78); ANION GAP 7 MEQ/L (8-16); AST/SGOT 16 U/L (7-37); BILIRUBIN,TOTAL 0.3 MG/DL (0.2-1.0); BLOOD UREA NITROGEN 22 MG/DL (7-18); CALCIUM LEVEL 9.4 MG/DL (8.8-10.2); CARBON DIOXIDE LEVEL 26 MEQ/L (21-32); CHLORIDE LEVEL 107 MEQ/L (98-107); CHOLESTEROL LEVEL 131 MG/DL (<200); CHOLESTEROL RISK RATIO 2.339 (<5); CREATININE FOR GFR 1.14 MG/DL (0.70-1.30); GLOMERULAR FILTRATION RATE > 60.0 (>49); GLUCOSE, FASTING 163 MG/DL (70-100); HDL CHOLESTEROL 56 MG/DL (>40); LDL CHOLESTEROL 55 MG/DL (<100); NON-HDL-C 75 MG/DL; POTASSIUM SERUM 4.2 MEQ/L (3.5-5.1); SODIUM LEVEL 140 MEQ/L (136-145); TOTAL PROTEIN 7.4 GM/DL (6.4-8.2); TRIGLYCERIDES LEVEL 100 MG/DL (<150)
[2017-12-21 10:59] LABS: MAU/CREAT RATIO 10.1 MCG/MG (0.0-30.0)
== END ==
LOC: M LAB 09:35
DX: E78.49 Other hyperlipidemia (principal); N20.0 Calculus of kidney
CPT/HCPCS: 80061

== ENCOUNTER → 2017-12-21 | Outpatient (CLI) | payer OTHER ==
[~2017-12-21] MED LIST changes: -BUPIVACAINE HCL 0.25% 30 ML VIAL As Ordered; +ISOVUE-370 76% 100ML VIAL (Q9967) As Ordered; -ISOVUE-M 300 61% 15ML VIAL (Q9967) As Ordered; -LIDOCAINE 1% SDV INJ 30 ML VIAL As Ordered; -TRIAMCINOLONE ACETONIDE SUSP 40 MG/ML VIAL (J3301) As Ordered
[2017-12-21 10:35] LABS: BLOOD UREA NITROGEN 22 MG/DL (7-18)
[2017-12-21 10:35] LABS: CREATININE FOR GFR 1.16 MG/DL (0.70-1.30); GLOMERULAR FILTRATION RATE > 60.0 (>49)
== END ==
LOC: M RAD 09:28
DX: Z12.11 Encounter for screening for malignant neoplasm of colon (principal); R12 Heartburn; N20.0 Calculus of kidney; Z90.49 Acquired absence of other specified parts of digestive tract
CPT/HCPCS: Q9967

== ENCOUNTER 2017-12-31 08:21 | Day surgery (SDC) | payer OTHER ==
[2017-12-31] MEDS: NS 1,000 ML IV (09:08)
[2017-12-31] MEDS ORDERED: PROPOFOL 500 MG/50 ML VIAL As Ordered (09:38)
[2017-12-31] MEDS ORDERED: LIDOCAINE 2% INJ 100 MG/5 ML SDV (FOR ANES.) As Ordered (09:38)
[2017-12-31] MEDS ORDERED: fentaNYL 100 MCG/2 ML INJECTION (J3010) As Ordered (09:38)
== END 2017-12-31 10:21 | disposition home or self-care (01) ==
LOC: M OPP 08:21
DX: Z12.11 Encounter for screening for malignant neoplasm of colon (principal); K64.0 First degree hemorrhoids; R12 Heartburn; Z98.84 Bariatric surgery status
CPT/HCPCS: 45378

== ENCOUNTER → 2018-01-04 | Outpatient (CLI) | payer OTHER | LOC: M RAD 12:56 | DX: S49.91XA Unspecified injury of right shoulder and upper arm, initial encounter (principal); X58.XXXA Exposure to other specified factors, initial encounter; Y92.9 Unspecified place or not applicable | CPT/HCPCS: 73030 ==

== ENCOUNTER → 2018-03-14 | Outpatient (RCR) | payer OTHER ==
[~2018-03-14] MED LIST changes: +AMBI12.52 PO; +ASPI325T25 PO; +CALC-190 PO; +CELE1CAP4 PO; +CRES40TA PO; +FLOM0.4C39 PO; +GABA-845 PO; -ISOVUE-370 76% 100ML VIAL (Q9967) As Ordered; +METF500T13; +METO1TAB33; +MULTTAB PO; +RAMI1CAP26; +SOMA350T PO; +TRAM50TA2; +TRIL135C6 PO; +ZETI10TA30 PO; +ZOFR4TAB14 PO
== END ==
LOC: M PT 15:13
PROVIDERS: ATTEND Orthopaedic Surgery
DX: Z47.89 Encounter for other orthopedic aftercare (principal); Z98.890 Other specified postprocedural states

== ENCOUNTER → 2018-03-28 | Outpatient (CLI) | payer OTHER ==
--- NOTE | 2018-04-15 00:01 | ECWPNPC ---
PATIENT NAME: KALEE TOVAR : 1955 GENDER: MALE VISIT DATE: 03/28/2018 DISCHARGE DATE: 03/28/18 1636 VISIT LOCKED DATE TIME: PHYSICIAN: LARON JOHNSON MD RESOURCE: LARON JOHNSON MD HISTORY OF PRESENT ILLNESS HISTORY OF PRESENT ILLNESS: PAIN THE PATIENT DESCRIBES THE PAIN... 63 YEAR OLD MALE PATIENT WITH A HISTORY OF CHRONIC NECK AND SHOULDER PAIN. THE PATIENT DESCRIBES THE PAIN ACHING, SORE, SHARP, AND INTERMITTENT WITH A PAIN SCORE OF 3-8/10 DEPENDING ON PHYSICAL ACTIVITY. THE PATIENT SAYS HIS PAIN IS MAINLY LOCATED IN HIS NECK AND HIS RIGHT SHOULDER. THE PATIENT STATES THAT HE TORE HIS ROTATOR CUFF IN HIS RIGHT SHOULDER AND HAD SURGERY 01/31/2018 AND IS STILL RECOVERING. THE PATIENT SAYS HE HAS DIFFICULTY WORKING DUE TO THIS PAIN. PATIENT DENIES UNEXPLAINABLE WEIGHT LOSS, FEVER, CHILLS, NEW CHANGES ON HIS URINARY OR BOWEL CONTROL. FALL RISK SCREENING: SCREENING : NO FALLS IN THE PAST YEAR. CURRENT MEDICATIONS TAKING TOPROL XL 100 MG TABLET EXTENDED RELEASE 24 HOUR 1 TABLET ORALLY BID, NOTES: 12/21 1199 TAKING CRESTOR 40 MG TABLET 1 TABLET ORALLY ONCE A DAY, NOTES: 12/21 1199 TAKING OMEGA 3-6-9 - CAPSULE ORALLY BID, NOTES: 3 DAYS TAKING SAW PALMETTO - CAPSULE ORALLY TID, NOTES: 12/19 9PM TAKING ECOTRIN 325 MG TABLET DELAYED RELEASE 1 TABLET ORALLY ONCE A DAY, NOTES: 1 WEEK TAKING VITAMIN D-3 5000 UNIT TABLET ORALLY DAILY, NOTES: 12/20 1200 TAKING CALCIUM 1200 0508-2034 MG-UNIT TABLET CHEWABLE 1 TABLET WITH A MEAL ORALLY BID, NOTES: 12/20 1200 TAKING B COMPLEX - CAPSULE ORALLY BID, NOTES: 12/20 6AM TAKING OMEPRAZOLE 20 MG CAPSULE DELAYED RELEASE 1 CAP ORALLY ONCE A DAY, NOTES: 12/20 6AM TAKING TYLENOL 325 MG TABLET 2 TABLETS NEEDED ORALLY EVERY 6 HRS, NOTES: 2 WEEKS AGO TAKING METFORMIN HCL 500 MG TABLET 1 TABLET WITH MEALS ORALLY TID, NOTES: 5 DAYS AGO TAKING TRENTAL 400 MG TABLET EXTENDED RELEASE 1 TABLET WITH MEALS ORALLY TID, NOTES: 1 WEEK AGO TAKING ZOLPIDEM TARTRATE ER 12.5 MG TABLET EXTENDED RELEASE 1 TABLET AT BEDTIME NEEDED ORALLY ONCE A DAY, NOTES: 12/19 8PM TAKING CLONAZEPAM 2 MG TABLET 1 TABLET ORALLY BID PRN, NOTES: 12/19 8AM TAKING TRILIPIX 135 MG CAPSULE DELAYED RELEASE 1 CAPSULE ORALLY ONCE A DAY, NOTES: 12/20 6AM TAKING ZETIA 10 MG TABLET 1 TABLET ORALLY ONCE A DAY, NOTES: 12/20 6AM TAKING CENTRUM - TABLET 1 CAP ORALLY BID, NOTES: 12/20 6AM TAKING CO Q 10 200 MG CAPSULE 1 CAPSULE WITH A MEAL ORALLY ONCE A DAY, NOTES: 12/20 1200 TAKING NEURONTIN 400 MG CAPSULE 3 CAPSULE ORALLY TWICE A DAY, NOTES: 12/19 9PM TAKING TAMSULOSIN HCL 0.4 MG CAPSULE EXTENDED RELEASE ORALLY , NOTES: 12/19 9PM TAKING CELEBREX 200 MG CAPSULE 1 CAPSULE ORALLY BID DAILY NEEDED MDD2, NOTES: 12/20 6AM TAKING SOMA 350 MG TABLET 1 TABLET NEEDED ORALLY FOR SPSMS AND PAIN Q8H PRN MDD3, NOTES: 12/19 9PM TAKING TRAMADOL HCL 50 MG TABLET 1 TABLET NEEDED ORALLY FOR PAIN Q8H PRN MDD3, NOTES: 12/19 9PM NOT-TAKING CYTOMEL 50 MCG TABLET 1 TABLET ON AN EMPTY STOMACH ORALLY ONCE A DAY NOT-TAKING RAMIPRIL 10 MG CAPSULE 1 CAPSULE ORALLY DAILY MEDICATION LIST REVIEWED AND RECONCILED WITH THE PATIENT PAST MEDICAL HISTORY AFIB, ONE EPISODE HYPERTENSION HIGH CHOLESTEROL NIDDM GERD ARTHRITIS HYDRONEPHROSIS - BILATERAL KIDNEY STONES ALLERGIES OXYCODONE HCL: NAUSEA: SIDE EFFECTS SURGICAL HISTORY C7-T1 FUSION TITANIUM PLATE BILAT BICEPS RUPTURED WITH SURGICAL ATTEMPT LAPRASCOPIC EXPLORATORY X4 CHOLECYSTECTOMY RIGHT ROTATOR CUFF REPAIR 01/29 FAMILY HISTORY NO FAMILY HISTORY DOCUMENTED. SOCIAL HISTORY GENERAL: TOBACCO USE ARE YOU A: NONSMOKER . ALCOHOL SCREENING DID YOU HAVE A DRINK CONTAINING ALCOHOL IN THE PAST YEAR?NO POINTS0 INTERPRETATIONNEGATIVE RECREATIONAL DRUG USE DRUG USE?NO CAFFEINE CAFFEINE USE?YES HOW OFTEN AND HOW MUCH? 2 CUPS COFFEE/DAY ANABAPTISM [id number] SIKHISM LANGUAGE LANGUAGES SPOKEN:BOTH CYMRO AND HEBREW LEARNING BARRIERS / SPECIAL NEEDS BARRIERS TO LEARNING?NO HEARING IMPAIRED?NO VISION IMPAIRED?YES :CORRECTIVE LENSES COGNITIVELY IMPAIRED?NO READINESS TO LEARN?YES LEARNING PREFERENCES?YES :BOOKLETS, HANDOUTS LEARNING CAPABILITIES PRESENT?YES EMOTIONAL BARRIERS?NO SPECIAL DEVICES?NO STUDIO CONTROL OPERATOR NEEDED?NO DOMESTIC VIOLENCE DO YOU FEEL SAFE IN YOUR ENVIRONMENT?YES NEW PATIENT PAIN DIARY TODAY'S VISIT NOTES, FROM 0-10, WHAT LEVEL IS YOUR PAIN TODAY? 0. PAIN CLINIC PFS, CLERGY, PUBLIC HEALTH REFERRALS PFS REFERRAL NEEDED?NO CLERGY REFERRAL NEEDED?NO PUBLIC HEALTH REFERRAL NEEDED?NO WAS THE PROVIDER NOTIFIED OF ANY PERTINENT INFO?YES HAS THE PATIENT BEEN EDUCATED REGARDING HIS/HER PLAN OF CARE?YES HAS THE PATIENT BEEN EDUCATED REGARDING PAIN, THE RISK FOR PAIN, THE IMPORTANCE OF EFFECTIVE PAIN MANAGEMENT, AND THE PAIN ASSESSMENT PROCESS?YES ADVANCE DIRECTIVE ADVANCE DIRECTIVE DISCUSSED WITH PATIENT:YES PT REPORTS HIS IS HIS HCP REVIEWED WITH PT 03/28/18 1520 LAS. HOSPITALIZATION/MAJOR DIAGNOSTIC PROCEDURE BLEEDING ULCER X2 REVIEW OF SYSTEMS REVIEWED BY: PROVIDER: LARON JOHNSON MD . CONSTITUTIONAL: ANY CHANGE IN YOUR MEDICAL CONDITION? YES RIGHT ROTATOR CUFF TEAR S/P SURGERY . CHILLS NO . FEVER NO . INFECTION: DO YOU HAVE NEW INFECTIONS? NO . DO YOU HAVE HISTORY OF MRSA? NO . MUSCULOSKELETAL: ANY NEW PATTERNS OF PAIN OR NUMBNESS? NO . GASTROENTEROLOGY: ANY NEW CHANGE IN BOWEL CONTROL? NO . GENITOURINARY: ANY NEW CHANGE IN BLADDER CONTROL? NO . IS THERE A CHANCE YOU COULD BE ? NO . HEMATOLOGY/LYMPH: DO YOU TAKE ANY BLOOD THINNERS? (FOR EXAMPLE- COUMADIN, PLAVIX, AGGRENOX, PLATEL, PRADAXA, OR XARELTO) NO . WHEN WAS YOUR LAST DOSE? DATE: TIME: . NEUROLOGY: HAVE YOU FALLEN IN THE PAST 12 MONTHS? NO . ANY NEW EXTREMITY NUMBNESS OR WEAKNESS? NO . CARDIOLOGY: DO YOU HAVE A PACEMAKER OR DEFIBRILLATOR? NO . RESPIRATORY: HAVE YOU BEEN SICK IN THE PAST WEEK? NO . FEVER NO . FLU LIKE SYMPTOMS? NO . COUGH NO . INTEGUMENTARY: DO YOU HAVE ANY RASHES OR OPEN SORES? NO . ALLERGIC/IMMUNO: ARE YOU ALLERGIC TO IV DYE? NO . ANY NEW ALLERGIES? NO . PSYCHIATRIC: DO YOU HAVE THOUGHTS OF HURTING YOURSELF OR SOMEONE ELSE? NO . ARE YOU ABUSED, NEGLECTED, OR IN AN UNSAFE ENVIRONMENT? NO . ENDOCRINOLOGY: ARE YOU DIABETIC? NO . OTHER: DO YOU NEED ANY PRESCRIPTIONS? YES SOMA, TRAMADOL . IF YES, PLEASE LIST: ____ . ANY NEW PROBLEMS WITH YOUR MEDICATIONS? NO . WHEN DID YOU LAST EAT? ____ . WHEN DID YOU LAST DRINK? ____ . WHAT DID YOU LAST DRINK? ____ . NAME OF PERSON DRIVING YOU HOME? ____ . DO YOU HAVE ANY OTHER QUESTIONS OR CONCERNS NO . VITAL SIGNS WT 244.6 LBS, HT 70 IN, BMI 35.09 INDEX, BP 138/65 MM HG, HR 54 /MIN, RR 18 /MIN, TEMP 97.3 F, OXYGEN SAT % 97%, SAFE IN ENV? (Y/N) YES, NA INITIALS SC 14:54, REVIEWED BY: MARCOS. EXAMINATION GENERAL EXAMINATION: PATIENT IS ALERT O X 3 AND COOPERATIVE. TENDERNESS OVER THE NECK AND RIGHT SHOULDER AREAS. PRESENCE OF TRIGGER POINTS AND BANDS OF TISSUE WITH RESTRICTION OF MOVEMENT OF THE NECK AND SHOULDER. PATIENT HAS DIFFICULTY ABDUCTING THE RIGHT ARM TO SHOULDER LEVEL. RIGHT ARM IS WEAKER AT EXTENSION AND FLEXION. HAND FORKLIFT MECHANIC OVER THE RIGHT SIDE IS REDUCED. ASSESSMENTS MYALGIA, OTHER SITE - M79.18 (PRIMARY) CERVICALGIA - M54.2 TREATMENT MYALGIA, OTHER SITE CLINICAL NOTES: WE DISCUSSED SEVERAL ISSUES WITH MR. TOVAR'S PAIN MANAGEMENT CASE. DUE TO THE TRIGGER POINTS, BANDS OF TISSUE, AND RESTRICTION OF MOVEMENT, I WOULD LIKE TO MOVE FORWARD WITH A TRIGGER POINT INJECTION AT THIS TIME. WE DISCUSSED THE BENEFITS, RISKS, AND ALTERNATIVES OF THE INJECTION AND THE PATIENT WOULD LIKE TO PROCEED. THE PATIENT WILL FOLLOW UP WITH A NURSE PRACTITIONER IN 6 WEEKS. INSTRUCTIONS WERE GIVEN, QUESTIONS WERE ANSWERED, PATIENT REPORTS UNDERSTANDING AND AGREES WITH THE PLAN. I, RAJIV DESOUZA, DOCUMENTED THE ABOVE INFORMATION ACTING A SCRIBE FOR DR. JOHNSON. I HAVE REVIEWED THE ABOVE DOCUMENT, WRITTEN BY RAJIV CAR AND I VERIFY THAT IT IS ACCURATE. PREVENTIVE MEDICINE PAIN CLINIC TEACHING: PROCEDURE TEACHING PT GIVEN WRITTEN AND VERBAL PRE-PROCEDURE INSTRUCTIONS. PT VERBALIZES UNDERSTANDING OF ALL INSTRUCTIONS. TYRON ROBLES 03/28/2018 4:40:14 PM > . PROCEDURE CODES FA211 ESTABILISHED PATIENT [facility] FACILITY CHARGE G8427 CURRENT MEDS W/DOSAGES DOCUMENTED G8730 PAIN ASSESS POS TOOL F/U PLAN DOC DISPOSITION & COMMUNICATION FOLLOW UP 6 WEEKS ELECTRONICALLY SIGNED BY LARON JOHNSON MD, MD ON 04/14/2018 AT 01:33 PM EST DISCLAIMER : THIS IS A VISIT SUMMARY EXTRACTED FROM THE [employer] CHART. IT IS NOT A COPY OF THE [employer] PROGRESS NOTE. MAUREEN
== END ==
LOC: M PAIN 15:15
PROVIDERS: ATTEND Anesthesiology
DX: M79.18 Myalgia, other site (principal); M54.2 Cervicalgia; I10 Essential (primary) hypertension; E78.00 Pure hypercholesterolemia, unspecified; E11.9 Type 2 diabetes mellitus without complications; K21.9 Gastro-esophageal reflux disease without esophagitis; M19.90 Unspecified osteoarthritis, unspecified site; Z79.84 Long term (current) use of oral hypoglycemic drugs; Z79.899 Other long term (current) drug therapy; Z88.5 Allergy status to narcotic agent; Z86.79 Personal history of other diseases of the circulatory system

== ENCOUNTER 2018-04-02 14:42 | Outpatient (RCR) | payer OTHER | END 2018-04-11 | LOC: M PT 14:42 | PROVIDERS: ATTEND Orthopaedic Surgery | DX: Z47.89 Encounter for other orthopedic aftercare (principal); Z98.890 Other specified postprocedural states; M25.511 Pain in right shoulder ==

== ENCOUNTER → 2018-04-18 | Outpatient (CLI) | payer OTHER | LOC: M PAIN 15:00 | PROVIDERS: ATTEND Anesthesiology | DX: Z53.29 Procedure and treatment not carried out because of patient's decision for other reasons (principal) ==

== ENCOUNTER → 2018-06-14 | Outpatient (CLI) | payer OTHER ==
[~2018-06-14] MED LIST changes: +ASPI-255 PO; -ASPI325T25 PO
--- NOTE | 2018-07-10 01:06 | ECWPNPC ---
PATIENT NAME: KALEE TOVAR : 1955 GENDER: MALE VISIT DATE: 06/14/2018 DISCHARGE DATE: 06/14/18 1432 VISIT LOCKED DATE TIME: PHYSICIAN: MARTÍN DOUGLAS RESOURCE: MARTÍN DOUGLAS REASON FOR APPOINTMENT 1. POST TPI HISTORY OF PRESENT ILLNESS HISTORY OF PRESENT ILLNESS: HERE FOR POST PROCEDURE F/U.HAD TPI BILAT. NECK AND SHOULDERS ON 05/17/18.REPORTING IMPROVEMENT IN PAIN THAT CONTINUES TODAY.HAVING COMPLICATIONS OF RIGHT SHOULDER SURGERY AND HE MAY HAVE TO HAVE SURGERY AGAIN.PAIN MEDICATION IS HELPFUL AT REDUCING PAIN AND KEEPING HIM COMFORTABLE .DENIES SIDE EFFECTS.`. PAIN THE PATIENT DESCRIBES THE PAIN... FALL RISK SCREENING: SCREENING :NO FALLS REPORTED IN THE LAST YEAR CURRENT MEDICATIONS TAKING TOPROL XL 100 MG TABLET EXTENDED RELEASE 24 HOUR 1 TABLET ORALLY BID TAKING CRESTOR 40 MG TABLET 1 TABLET ORALLY ONCE A DAY TAKING OMEGA 3-6-9 - CAPSULE ORALLY BID TAKING SAW PALMETTO - CAPSULE ORALLY TID TAKING ECOTRIN 325 MG TABLET DELAYED RELEASE 1 TABLET ORALLY ONCE A DAY TAKING VITAMIN D-3 5000 UNIT TABLET ORALLY DAILY TAKING CALCIUM 1200 0372-6459 MG-UNIT TABLET CHEWABLE 1 TABLET WITH A MEAL ORALLY BID TAKING OMEPRAZOLE 20 MG CAPSULE DELAYED RELEASE 1 CAP ORALLY ONCE A DAY TAKING TYLENOL 325 MG TABLET 2 TABLETS NEEDED ORALLY EVERY 6 HRS TAKING METFORMIN HCL 500 MG TABLET 1 TABLET WITH MEALS ORALLY TID TAKING TRENTAL 400 MG TABLET EXTENDED RELEASE 1 TABLET WITH MEALS ORALLY TID TAKING ZOLPIDEM TARTRATE ER 12.5 MG TABLET EXTENDED RELEASE 1 TABLET AT BEDTIME NEEDED ORALLY ONCE A DAY TAKING CLONAZEPAM 2 MG TABLET 1 TABLET ORALLY BID PRN TAKING TRILIPIX 135 MG CAPSULE DELAYED RELEASE 1 CAPSULE ORALLY ONCE A DAY TAKING ZETIA 10 MG TABLET 1 TABLET ORALLY ONCE A DAY TAKING CENTRUM - TABLET 1 CAP ORALLY BID TAKING CO Q 10 200 MG CAPSULE 1 CAPSULE WITH A MEAL ORALLY ONCE A DAY TAKING NEURONTIN 400 MG CAPSULE 3 CAPSULE ORALLY TWICE A DAY TAKING TAMSULOSIN HCL 0.4 MG CAPSULE EXTENDED RELEASE ORALLY TAKING SOMA 350 MG TABLET 1 TABLET NEEDED ORALLY FOR SPSMS AND PAIN Q8H PRN MDD3 TAKING TRAMADOL HCL 50 MG TABLET 1 TABLET NEEDED ORALLY FOR PAIN Q8H PRN MDD3 TAKING CELEBREX 200 MG CAPSULE 1 CAPSULE ORALLY BID DAILY NEEDED MDD2 TAKING POTASSIUM CITRATE 10 MEQ TABLET ORALLY DAILY NOT-TAKING B COMPLEX - CAPSULE ORALLY BID NOT-TAKING CYTOMEL 50 MCG TABLET 1 TABLET ON AN EMPTY STOMACH ORALLY ONCE A DAY NOT-TAKING RAMIPRIL 10 MG CAPSULE 1 CAPSULE ORALLY DAILY MEDICATION LIST REVIEWED AND RECONCILED WITH THE PATIENT PAST MEDICAL HISTORY AFIB, ONE EPISODE HYPERTENSION HIGH CHOLESTEROL NIDDM GERD ARTHRITIS HYDRONEPHROSIS - BILATERAL KIDNEY STONES TORN RIGHT ROTATOR CUFF RUPTURED RIGHT BICEP ALLERGIES OXYCODONE HCL: NAUSEA - SIDE EFFECTS LATEX (FOR ALLERGY USE ONLY): RASH - ALLERGY SURGICAL HISTORY C7-T1 FUSION TITANIUM PLATE BILAT ROTATOR CUFF REPAIR 01/2018 BILAT BICEPS RUPTURED WITH SURGICAL ATTEMPT LAPRASCOPIC EXPLORATORY X4 CHOLECYSTECTOMY FAMILY HISTORY NO FAMILY HISTORY DOCUMENTED. SOCIAL HISTORY GENERAL: TOBACCO USE ARE YOU A: NONSMOKER. DIET: NO CONCENTRATED SWEETS., CARBOHYDRATE CONTROLLED. LANGUAGE LANGUAGES SPOKEN:BOTH PORTUGUESE AND DANISH DOMESTIC VIOLENCE DO YOU FEEL SAFE IN YOUR ENVIRONMENT?YES NEW PATIENT PAIN DIARY TODAY'S VISIT NOTES, FROM 0-10, WHAT LEVEL IS YOUR PAIN TODAY? 0. RECREATIONAL DRUG USE DRUG USE?NO LEARNING BARRIERS / SPECIAL NEEDS BARRIERS TO LEARNING?NO HEARING IMPAIRED?NO VISION IMPAIRED?YES :CORRECTIVE LENSES COGNITIVELY IMPAIRED?NO READINESS TO LEARN?YES LEARNING PREFERENCES?YES :BOOKLETS, HANDOUTS LEARNING CAPABILITIES PRESENT?YES EMOTIONAL BARRIERS?NO SPECIAL DEVICES?NO TOOL BUILDER NEEDED?NO PAIN CLINIC PFS, CLERGY, PUBLIC HEALTH REFERRALS PFS REFERRAL NEEDED?NO CLERGY REFERRAL NEEDED?NO PUBLIC HEALTH REFERRAL NEEDED?NO WAS THE PROVIDER NOTIFIED OF ANY PERTINENT INFO?YES HAS THE PATIENT BEEN EDUCATED REGARDING HIS/HER PLAN OF CARE?YES HAS THE PATIENT BEEN EDUCATED REGARDING PAIN, THE RISK FOR PAIN, THE IMPORTANCE OF EFFECTIVE PAIN MANAGEMENT, AND THE PAIN ASSESSMENT PROCESS?YES LATEX QUESTIONNAIRE LATEX ALLERGY : HAVE YOU EVER DEVELOPED ANY TYPE OF REACTION AFTER HANDLING LATEX PRODUCTS SUCH RUBBER GLOVES, CONDOMS, DIAPHRAGMS, BALLOONS, SOCKS, OR UNDERWEAR?YES - PLEASE INDICATE :RUBBER GLOVES LATEX ALLERGY : HAVE YOU EVER DEVELOPED ANY TYPE OF REACTION DURING OR AFTER DENTAL APPOINTMENT, VAGINAL/RECTAL EXAMINATION, SURGICAL PROCEDURE, OR ANY OTHER EXPOSURE?NO LATEX RISK : HAVE YOU EVER HAD ANY DIFFICULTY BREATHING OR HIVES AFTER EATING OR HANDLING ANY FRUITS, OR VEGETABLES; SUCH KIWI, BANANAS, STONE FRUITS, OR CHESTNUTSNO LATEX RISK : DO YOU HAVE A PREVIOUS PERSONAL HISTORY OF MORE THAN NINE SURGERIES, SPINA BIFIDA, OR REPEATED CATHERTIZATIONS? YES - PLEASE INDICATE : > 9 SURGERIES LATEX RISK : ARE YOU FREQUENTLY EXPOSED TO LATEX PRODUCTS IN YOUR OCCUPATION?YES DATE ASKED : 06/14/2018 CAFFEINE CAFFEINE USE?YES HOW OFTEN AND HOW MUCH? 2 CUPS COFFEE/DAY ADVANCE DIRECTIVE ADVANCE DIRECTIVE DISCUSSED WITH PATIENT:YES PT REPORTS HIS IS HIS HCP. SALLIE VELAZQUEZ [phone], [facility] [id number] [facility] ALCOHOL SCREENING DID YOU HAVE A DRINK CONTAINING ALCOHOL IN THE PAST YEAR?NO POINTS0 INTERPRETATIONNEGATIVE REVIEWED WITH PT 03/28/18 1520 LASREVIEWED WITH PATIENT 05/17/18 1549 JS. HOSPITALIZATION/MAJOR DIAGNOSTIC PROCEDURE BLEEDING ULCER X2 REVIEW OF SYSTEMS REVIEWED BY: PROVIDER: MARTÍN COFFEY . CONSTITUTIONAL: ANY CHANGE IN YOUR MEDICAL CONDITION? YES, RUPTURED ROTATOR CUFF . CHILLS NO . FEVER NO . INFECTION: DO YOU HAVE NEW INFECTIONS? NO . DO YOU HAVE HISTORY OF MRSA? NO . MUSCULOSKELETAL: ANY NEW PATTERNS OF PAIN OR NUMBNESS? YES, RIGHT SHOULDER PAIN, SHARP STABBING . GASTROENTEROLOGY: ANY NEW CHANGE IN BOWEL CONTROL? NO . GENITOURINARY: ANY NEW CHANGE IN BLADDER CONTROL? NO . IS THERE A CHANCE YOU COULD BE ? NO . HEMATOLOGY/LYMPH: DO YOU TAKE ANY BLOOD THINNERS? (FOR EXAMPLE- COUMADIN, PLAVIX, AGGRENOX, PLATEL, PRADAXA, OR XARELTO) NO . WHEN WAS YOUR LAST DOSE? DATE: TIME: . NEUROLOGY: HAVE YOU FALLEN IN THE PAST 12 MONTHS? YES, PT STATES THAT HE WAS HOME IN DECEMBER SLID ON ICE IN DRIVEWAY, INJURED ARM, SEEN BY PCP . ANY NEW EXTREMITY NUMBNESS OR WEAKNESS? YES . CARDIOLOGY: DO YOU HAVE A PACEMAKER OR DEFIBRILLATOR? NO . RESPIRATORY: HAVE YOU BEEN SICK IN THE PAST WEEK? NO . FEVER NO . FLU LIKE SYMPTOMS? NO . COUGH NO . INTEGUMENTARY: DO YOU HAVE ANY RASHES OR OPEN SORES? NO . ALLERGIC/IMMUNO: ARE YOU ALLERGIC TO IV DYE? NO . ANY NEW ALLERGIES? NO . PSYCHIATRIC: DO YOU HAVE THOUGHTS OF HURTING YOURSELF OR SOMEONE ELSE? NO . ARE YOU ABUSED, NEGLECTED, OR IN AN UNSAFE ENVIRONMENT? NO . ENDOCRINOLOGY: ARE YOU DIABETIC? NO . OTHER: DO YOU NEED ANY PRESCRIPTIONS? YES, SOMA, TRAMADOL, CELEBREX . IF YES, PLEASE LIST: ____ . ANY NEW PROBLEMS WITH YOUR MEDICATIONS? NO . WHEN DID YOU LAST EAT? ____ . WHEN DID YOU LAST DRINK? ____ . WHAT DID YOU LAST DRINK? ____ . NAME OF PERSON DRIVING YOU HOME? ____ . DO YOU HAVE ANY OTHER QUESTIONS OR CONCERNS NO . VITAL SIGNS WT 236.8 LBS, HT 70 IN, BMI 33.97 INDEX, BP 116/69 MM HG, HR 68 /MIN, RR 18 /MIN, TEMP 98.2 F, OXYGEN SAT % 98%, SAFE IN ENV? (Y/N) Y, NA INITIALS ND 13:43, REVIEWED BY: LE. EXAMINATION GENERAL EXAMINATION: GENERAL APPEARANCE:AWAKE,ALERT ,PLEAASANT . PSYCHAFFECT NORMAL . LUNGS:LUNG NG ARE CLEAR TO AUSCULTATION BILATERALLY. GOOD MOVEMENT OF AIR . HEART:S1, S2 IN A REGULAR RATE AND RHYTHM. NO SIGNIFICANT MURMURS, RUBS OR GALLOPS NOTED . ASSESSMENTS MYALGIA, OTHER SITE - M79.18 (PRIMARY) TREATMENT MYALGIA, OTHER SITE CONTINUE SOMA TABLET, 350 MG, 1 TABLET NEEDED, ORALLY FOR SPSMS AND PAIN, Q8H PRN MDD3 CONTINUE TRAMADOL HCL TABLET, 50 MG, 1 TABLET NEEDED, ORALLY FOR PAIN, Q8H PRN MDD3 CONTINUE CELEBREX CAPSULE, 200 MG, 1 CAPSULE, ORALLY, BID DAILY NEEDED MDD2 NOTES: ISTOP REGISTRY REVIEWED AND DEMONSTRATES COMPLLIANCE. URINE TOX TODAY, RISKS AND BENEFITS OF NARCOTIC/OPIOD MEDICATIONS WERE REVIEWED WITH PATIENT - THIS INCLUDES BUT IS NOT LIMITED TO RISK OF DEPENDANCE/DEVELOPMENT OF ADDICTION, MOOD DISTURBANCE AND DEPRESSION, OSTEOPOROSIS, HORMONAL AND LABIDAL CHANGES, RESPIRATORY DEPRESSION AND . PATIENT IS ADVISED NOT TO DRIVE OR DRINK ALCOHOL WHILE ON THESE MEDICATIONS. PROCEDURE CODES FA211 ESTABILISHED PATIENT [facility] CHARGE DISPOSITION & COMMUNICATION FOLLOW UP 2 MONTHS ELECTRONICALLY SIGNED BY ALEXX SIMMONS ON 07/09/2018 AT 02:02 PM EDT DISCLAIMER : THIS IS A VISIT SUMMARY EXTRACTED FROM THE [employer] CHART. IT IS NOT A COPY OF THE [employer] PROGRESS NOTE. MAUREEN
== END ==
LOC: M PAIN 14:45
PROVIDERS: ATTEND Nurse Practitioner Family
DX: M79.18 Myalgia, other site (principal); I10 Essential (primary) hypertension; E78.00 Pure hypercholesterolemia, unspecified; E11.9 Type 2 diabetes mellitus without complications; K21.9 Gastro-esophageal reflux disease without esophagitis; M19.90 Unspecified osteoarthritis, unspecified site; Z88.5 Allergy status to narcotic agent; Z91.040 Latex allergy status; Z79.84 Long term (current) use of oral hypoglycemic drugs; Z79.899 Other long term (current) drug therapy

== ENCOUNTER → 2018-10-18 | Outpatient (CLI) | payer OTHER ==
[~2018-10-18] MED LIST changes: +ZETI10TA16 PO; -ZETI10TA30 PO
--- NOTE | 2018-10-31 01:25 | ECWPNPC ---
PATIENT NAME: KALEE TOVAR : 1955 GENDER: MALE VISIT DATE: 10/18/2018 DISCHARGE DATE: 10/18/18 1518 VISIT LOCKED DATE TIME: PHYSICIAN: MARTÍN DOUGLAS RESOURCE: MARTÍN DOUGLAS HISTORY OF PRESENT ILLNESS HISTORY OF PRESENT ILLNESS: HERE FOR F/U AND MANAGEMENT OF CHRONIC LBP.PAIN MEDICATION IS HELPFUL AT REDUCING PAIN AND KEEPING HIM COMFORTABLE .DENIES SIDE EFFECTS.ALSO SUFFERS FROM CHRONIC NECK AND `RIGHT SHOULDER PAIN.WILL BE HAVING MORE RIGHT SHOULDER SURGERY NEXT MONTH.RATING PAIN VAS 1-3/10. PAIN THE PATIENT DESCRIBES THE PAIN... THE PATIENT DESCRIBES THE PAIN... FALL RISK SCREENING: SCREENING :NO FALLS REPORTED IN THE LAST YEAR CURRENT MEDICATIONS TAKING TOPROL XL 100 MG TABLET EXTENDED RELEASE 24 HOUR 1 TABLET ORALLY BID TAKING CRESTOR 40 MG TABLET 1 TABLET ORALLY ONCE A DAY TAKING OMEGA 3-6-9 - CAPSULE ORALLY BID TAKING SAW PALMETTO - CAPSULE ORALLY TID TAKING ECOTRIN 325 MG TABLET DELAYED RELEASE 1 TABLET ORALLY ONCE A DAY TAKING VITAMIN D-3 5000 UNIT TABLET ORALLY DAILY TAKING CALCIUM 1200 1220-0263 MG-UNIT TABLET CHEWABLE 1 TABLET WITH A MEAL ORALLY BID TAKING OMEPRAZOLE 20 MG CAPSULE DELAYED RELEASE 1 CAP ORALLY ONCE A DAY TAKING TYLENOL 325 MG TABLET 2 TABLETS NEEDED ORALLY EVERY 6 HRS TAKING METFORMIN HCL 500 MG TABLET 1 TABLET WITH MEALS ORALLY TID TAKING TRENTAL 400 MG TABLET EXTENDED RELEASE 1 TABLET WITH MEALS ORALLY TID TAKING ZOLPIDEM TARTRATE ER 6.25 MG TABLET EXTENDED RELEASE 1 TABLET AT BEDTIME NEEDED ORALLY ONCE A DAY TAKING CLONAZEPAM 1 MG TABLET 1 TABLET ORALLY BID PRN TAKING TRILIPIX 135 MG CAPSULE DELAYED RELEASE 1 CAPSULE ORALLY ONCE A DAY TAKING ZETIA 10 MG TABLET 1 TABLET ORALLY ONCE A DAY TAKING CENTRUM - TABLET 1 CAP ORALLY BID TAKING CO Q 10 200 MG CAPSULE 1 CAPSULE WITH A MEAL ORALLY ONCE A DAY TAKING NEURONTIN 400 MG CAPSULE 3 CAPSULE ORALLY BEFORE BEDTIME TAKING TAMSULOSIN HCL 0.4 MG CAPSULE EXTENDED RELEASE ORALLY TAKING POTASSIUM CITRATE 10 MEQ TABLET ORALLY BID TAKING SOMA 350 MG TABLET 1 TABLET NEEDED ORALLY FOR SPSMS AND PAIN Q8H PRN MDD3 TAKING TRAMADOL HCL 50 MG TABLET 1 TABLET NEEDED ORALLY FOR PAIN Q8H PRN MDD3 TAKING CELEBREX 200 MG CAPSULE 1 CAPSULE ORALLY FOR PAIN BID DAILY NEEDED MDD2 NOT-TAKING B COMPLEX - CAPSULE ORALLY BID NOT-TAKING CYTOMEL 50 MCG TABLET 1 TABLET ON AN EMPTY STOMACH ORALLY ONCE A DAY NOT-TAKING RAMIPRIL 10 MG CAPSULE 1 CAPSULE ORALLY DAILY MEDICATION LIST REVIEWED AND RECONCILED WITH THE PATIENT PAST MEDICAL HISTORY AFIB, ONE EPISODE HYPERTENSION HIGH CHOLESTEROL NIDDM GERD ARTHRITIS HYDRONEPHROSIS - BILATERAL KIDNEY STONES TORN RIGHT ROTATOR CUFF RUPTURED RIGHT BICEP ALLERGIES OXYCODONE HCL: NAUSEA - SIDE EFFECTS LATEX (FOR ALLERGY USE ONLY): RASH - ALLERGY SURGICAL HISTORY C7-T1 FUSION TITANIUM PLATE BILAT ROTATOR CUFF REPAIR 01/2018 BILAT BICEPS RUPTURED WITH SURGICAL ATTEMPT LAPRASCOPIC EXPLORATORY X4 CHOLECYSTECTOMY FAMILY HISTORY NO FAMILY HISTORY DOCUMENTED. SOCIAL HISTORY GENERAL: TOBACCO USE ARE YOU A: NONSMOKER. DIET: NO CONCENTRATED SWEETS., CARBOHYDRATE CONTROLLED. LANGUAGE LANGUAGES SPOKEN:BOTH ROMANSH AND TUVALUAN DOMESTIC VIOLENCE DO YOU FEEL SAFE IN YOUR ENVIRONMENT?YES NEW PATIENT PAIN DIARY TODAY'S VISIT NOTES, FROM 0-10, WHAT LEVEL IS YOUR PAIN TODAY? 0. RECREATIONAL DRUG USE DRUG USE?NO LEARNING BARRIERS / SPECIAL NEEDS BARRIERS TO LEARNING?NO HEARING IMPAIRED?NO VISION IMPAIRED?YES COGNITIVELY IMPAIRED?NO :CORRECTIVE LENSES READINESS TO LEARN?YES LEARNING PREFERENCES?YES :BOOKLETS, HANDOUTS LEARNING CAPABILITIES PRESENT?YES EMOTIONAL BARRIERS?NO SPECIAL DEVICES?NO US CUSTOMS AND BORDER OFFICER NEEDED?NO PAIN CLINIC PFS, CLERGY, PUBLIC HEALTH REFERRALS PFS REFERRAL NEEDED?NO CLERGY REFERRAL NEEDED?NO PUBLIC HEALTH REFERRAL NEEDED?NO WAS THE PROVIDER NOTIFIED OF ANY PERTINENT INFO?YES HAS THE PATIENT BEEN EDUCATED REGARDING HIS/HER PLAN OF CARE?YES HAS THE PATIENT BEEN EDUCATED REGARDING PAIN, THE RISK FOR PAIN, THE IMPORTANCE OF EFFECTIVE PAIN MANAGEMENT, AND THE PAIN ASSESSMENT PROCESS?YES LATEX QUESTIONNAIRE LATEX ALLERGY : HAVE YOU EVER DEVELOPED ANY TYPE OF REACTION AFTER HANDLING LATEX PRODUCTS SUCH RUBBER GLOVES, CONDOMS, DIAPHRAGMS, BALLOONS, SOCKS, OR UNDERWEAR?YES LATEX ALLERGY : HAVE YOU EVER DEVELOPED ANY TYPE OF REACTION DURING OR AFTER DENTAL APPOINTMENT, VAGINAL/RECTAL EXAMINATION, SURGICAL PROCEDURE, OR ANY OTHER EXPOSURE?NO - PLEASE INDICATE :RUBBER GLOVES DATE ASKED : 06/14/2018 LATEX RISK : HAVE YOU EVER HAD ANY DIFFICULTY BREATHING OR HIVES AFTER EATING OR HANDLING ANY FRUITS, OR VEGETABLES; SUCH KIWI, BANANAS, STONE FRUITS, OR CHESTNUTSNO LATEX RISK : DO YOU HAVE A PREVIOUS PERSONAL HISTORY OF MORE THAN NINE SURGERIES, SPINA BIFIDA, OR REPEATED CATHERIZATIONS? YES - PLEASE INDICATE : > 9 SURGERIES LATEX RISK : ARE YOU FREQUENTLY EXPOSED TO LATEX PRODUCTS IN YOUR OCCUPATION?YES CAFFEINE CAFFEINE USE?YES HOW OFTEN AND HOW MUCH? 2 CUPS COFFEE/DAY ADVANCE DIRECTIVE ADVANCE DIRECTIVE DISCUSSED WITH PATIENT:YES PT REPORTS HIS IS HIS HCP. SALLIE VELAZQUEZ [phone], GNOSTICIST [id number] SCIENTOLOGY ALCOHOL SCREENING DID YOU HAVE A DRINK CONTAINING ALCOHOL IN THE PAST YEAR?NO POINTS0 INTERPRETATIONNEGATIVE REVIEWED WITH PT 03/28/18 1520 LASREVIEWED WITH PATIENT 05/17/18 1549 JSREVIEWED WITH PATIENT 10/18/18 1453 NLJ. HOSPITALIZATION/MAJOR DIAGNOSTIC PROCEDURE BLEEDING ULCER X2 REVIEW OF SYSTEMS REVIEWED BY: PROVIDER: MARTÍN COFFEY . CONSTITUTIONAL: ANY CHANGE IN YOUR MEDICAL CONDITION? NO . CHILLS NO . FEVER NO . INFECTION: DO YOU HAVE NEW INFECTIONS? NO . DO YOU HAVE HISTORY OF MRSA? NO . MUSCULOSKELETAL: ANY NEW PATTERNS OF PAIN OR NUMBNESS? YES- STATES TPI WORKED WELL FOR NECK BUT RIGHT SHOULDER PAIN HAS INCREASED, PATIENT STATES HE HAS BEEN DOING PT AND IT IS NOT WORKING, STATES HE WAS TOLD BY ORTHO DOCTOR HE WILL PROB NEED SURGERY ON RIGHT SHOULDER . GASTROENTEROLOGY: ANY NEW CHANGE IN BOWEL CONTROL? NO . GENITOURINARY: ANY NEW CHANGE IN BLADDER CONTROL? NO . IS THERE A CHANCE YOU COULD BE ? NO . HEMATOLOGY/LYMPH: DO YOU TAKE ANY BLOOD THINNERS? (FOR EXAMPLE- COUMADIN, PLAVIX, AGGRENOX, PLATEL, PRADAXA, OR XARELTO) NO . WHEN WAS YOUR LAST DOSE? DATE: TIME: . NEUROLOGY: HAVE YOU FALLEN IN THE PAST 12 MONTHS? YES- DECEMBER 16, 2017 FELL AND INJURED RIGHT SHOULDER . ANY NEW EXTREMITY NUMBNESS OR WEAKNESS? NO . CARDIOLOGY: DO YOU HAVE A PACEMAKER OR DEFIBRILLATOR? NO . RESPIRATORY: HAVE YOU BEEN SICK IN THE PAST WEEK? NO . FEVER NO . FLU LIKE SYMPTOMS? NO . COUGH NO . INTEGUMENTARY: DO YOU HAVE ANY RASHES OR OPEN SORES? NO . ALLERGIC/IMMUNO: ARE YOU ALLERGIC TO IV DYE? NO . ANY NEW ALLERGIES? NO . PSYCHIATRIC: DO YOU HAVE THOUGHTS OF HURTING YOURSELF OR SOMEONE ELSE? NO . ARE YOU ABUSED, NEGLECTED, OR IN AN UNSAFE ENVIRONMENT? NO . ENDOCRINOLOGY: ARE YOU DIABETIC? YES . OTHER: DO YOU NEED ANY PRESCRIPTIONS? YES . IF YES, PLEASE LIST: ____CELEBREX, SOMA, TRAMADOL . ANY NEW PROBLEMS WITH YOUR MEDICATIONS? NO . WHEN DID YOU LAST EAT? ____ . WHEN DID YOU LAST DRINK? ____ . WHAT DID YOU LAST DRINK? ____ . NAME OF PERSON DRIVING YOU HOME? ____ . DO YOU HAVE ANY OTHER QUESTIONS OR CONCERNS NO . VITAL SIGNS WT 240.6 LBS, HT 70 IN, BMI 34.52 INDEX, BP 116/58 MM HG, HR 79 /MIN, RR 18 /MIN, TEMP 97.9 F, OXYGEN SAT % 97%, SAFE IN ENV? (Y/N) YES, NA INITIALS AW 1430, REVIEWED BY: LUDWIN. EXAMINATION GENERAL EXAMINATION: GENERALAWAKE,ALERT ,PLEAASANT . PSYCHAFFECT NORMAL . LUNGS:LUNG NG ARE CLEAR TO AUSCULTATION BILATERALLY. GOOD MOVEMENT OF AIR . HEART:S1, S2 IN A REGULAR RATE AND RHYTHM. NO SIGNIFICANT MURMURS, RUBS OR GALLOPS NOTED . 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 BRINGS IN MEDICATIONS WHICH IS APPROPRIATE FOR WHAT WAS DISPENSED. RECENT URINE TOXICOLOGY REVIEWED. NO UNAUTHORIZED MEDICATIONS. NO ILLICIT SUBSTANCES AND PRESCRIBED MEDICATIONS WERE PRESENT. , RISKS AND BENEFITS OF NARCOTIC/OPIOD MEDICATIONS WERE REVIEWED WITH PATIENT - THIS INCLUDES BUT IS NOT LIMITED TO RISK OF DEPENDANCE/DEVELOPMENT OF ADDICTION, MOOD DISTURBANCE AND DEPRESSION, OSTEOPOROSIS, HORMONAL AND LABIDAL CHANGES, RESPIRATORY DEPRESSION AND . PATIENT IS ADVISED NOT TO DRIVE OR DRINK ALCOHOL WHILE ON THESE MEDICATIONS. PROCEDURE CODES FA211 ESTABILISHED PATIENT [facility] CHARGE DISPOSITION & COMMUNICATION FOLLOW UP 2 MONTHS (REASON: NECK/LBP) ELECTRONICALLY SIGNED BY ALEXX SIMMONS ON 10/30/2018 AT 01:38 PM EDT DISCLAIMER : THIS IS A VISIT SUMMARY EXTRACTED FROM THE [employer] CHART. IT IS NOT A COPY OF THE [employer] PROGRESS NOTE. MTDD
== END ==
LOC: M PAIN 14:30
PROVIDERS: ATTEND Nurse Practitioner Family
DX: M51.17 Intervertebral disc disorders with radiculopathy, lumbosacral region (principal); M50.120 Mid-cervical disc disorder, unspecified level; G89.29 Other chronic pain; I10 Essential (primary) hypertension; E78.00 Pure hypercholesterolemia, unspecified; E11.9 Type 2 diabetes mellitus without complications; K21.9 Gastro-esophageal reflux disease without esophagitis; M19.90 Unspecified osteoarthritis, unspecified site; Z88.5 Allergy status to narcotic agent; Z91.040 Latex allergy status; Z79.84 Long term (current) use of oral hypoglycemic drugs; Z79.899 Other long term (current) drug therapy

== ENCOUNTER → 2018-12-20 | Outpatient (CLI) | payer OTHER ==
--- NOTE | 2019-01-09 03:01 | ECWPNPC ---
PATIENT NAME: KALEE TOVAR : 1955 GENDER: MALE VISIT DATE: 12/20/2018 DISCHARGE DATE: 12/20/18 1502 VISIT LOCKED DATE TIME: PHYSICIAN: MARTÍN DOUGLAS RESOURCE: MARTÍN DOUGLAS REASON FOR APPOINTMENT 1. NECK/LBP HISTORY OF PRESENT ILLNESS HISTORY OF PRESENT ILLNESS: HERE FOR F/U OF CHRONIC NECK AND SHOULDER PAIN.HX OF RIGHT ROTATOR CUFF SURGERY JANUARY 2018.FEELS RIGHT SHOULDER IS BETTER BUT DESCRIBES DAILY STABBING AND BURNING PAIN.PAIN IN RIGHT SHOULDER IS AGGREVATED WITH ROJM NECK AND RIGHT ARM.HE IS ASKING FOR RIGHT SHOULDER INJECTION.RATING PAIN VAS 3-5/10 VAS. PAIN THE PATIENT DESCRIBES THE PAIN... FALL RISK SCREENING: SCREENING :NO FALLS REPORTED IN THE LAST YEAR CURRENT MEDICATIONS TAKING TOPROL XL 100 MG TABLET EXTENDED RELEASE 24 HOUR 1 TABLET ORALLY BID TAKING CRESTOR 40 MG TABLET 1 TABLET ORALLY ONCE A DAY TAKING OMEGA 3-6-9 - CAPSULE ORALLY BID TAKING SAW PALMETTO - CAPSULE ORALLY TID TAKING ECOTRIN 325 MG TABLET DELAYED RELEASE 1 TABLET ORALLY ONCE A DAY TAKING VITAMIN D-3 5000 UNIT TABLET ORALLY DAILY TAKING CALCIUM 1200 5467-5660 MG-UNIT TABLET CHEWABLE 1 TABLET WITH A MEAL ORALLY BID TAKING OMEPRAZOLE 20 MG CAPSULE DELAYED RELEASE 1 CAP ORALLY ONCE A DAY TAKING TYLENOL 325 MG TABLET 2 TABLETS NEEDED ORALLY EVERY 6 HRS TAKING METFORMIN HCL 500 MG TABLET 1 TABLET WITH MEALS ORALLY TID TAKING TRENTAL 400 MG TABLET EXTENDED RELEASE 1 TABLET WITH MEALS ORALLY TID TAKING ZOLPIDEM TARTRATE ER 6.25 MG TABLET EXTENDED RELEASE 1 TABLET AT BEDTIME NEEDED ORALLY ONCE A DAY TAKING CLONAZEPAM 1 MG TABLET 1 TABLET ORALLY BID PRN TAKING TRILIPIX 135 MG CAPSULE DELAYED RELEASE 1 CAPSULE ORALLY ONCE A DAY TAKING ZETIA 10 MG TABLET 1 TABLET ORALLY ONCE A DAY TAKING CENTRUM - TABLET 1 CAP ORALLY BID TAKING CO Q 10 200 MG CAPSULE 1 CAPSULE WITH A MEAL ORALLY ONCE A DAY TAKING NEURONTIN 400 MG CAPSULE 3 CAPSULE ORALLY BEFORE BEDTIME TAKING TAMSULOSIN HCL 0.4 MG CAPSULE EXTENDED RELEASE ORALLY TAKING POTASSIUM CITRATE 10 MEQ TABLET ORALLY BID TAKING SOMA 350 MG TABLET 1 TABLET NEEDED ORALLY FOR SPSMS AND PAIN Q8H PRN MDD3 TAKING TRAMADOL HCL 50 MG TABLET 1 TABLET NEEDED ORALLY FOR PAIN Q8H PRN MDD3 TAKING CELEBREX 200 MG CAPSULE 1 CAPSULE ORALLY FOR PAIN BID DAILY NEEDED MDD2 NOT-TAKING B COMPLEX - CAPSULE ORALLY BID NOT-TAKING CYTOMEL 50 MCG TABLET 1 TABLET ON AN EMPTY STOMACH ORALLY ONCE A DAY NOT-TAKING RAMIPRIL 10 MG CAPSULE 1 CAPSULE ORALLY DAILY MEDICATION LIST REVIEWED AND RECONCILED WITH THE PATIENT PAST MEDICAL HISTORY AFIB, ONE EPISODE HYPERTENSION HIGH CHOLESTEROL NIDDM GERD ARTHRITIS HYDRONEPHROSIS - BILATERAL KIDNEY STONES TORN RIGHT ROTATOR CUFF RUPTURED RIGHT BICEP ALLERGIES OXYCODONE HCL: NAUSEA - SIDE EFFECTS LATEX (FOR ALLERGY USE ONLY): RASH - ALLERGY SURGICAL HISTORY C7-T1 FUSION TITANIUM PLATE BILAT ROTATOR CUFF REPAIR 01/2018 BILAT BICEPS RUPTURED WITH SURGICAL ATTEMPT LAPRASCOPIC EXPLORATORY X4 CHOLECYSTECTOMY FAMILY HISTORY NO FAMILY HISTORY DOCUMENTED. SOCIAL HISTORY REVIEWED WITH PT 03/28/18 1520 LASREVIEWED WITH PATIENT 05/17/18 1549 JSREVIEWED WITH PATIENT 10/18/18 1453 NLJ. HOSPITALIZATION/MAJOR DIAGNOSTIC PROCEDURE BLEEDING ULCER X2 REVIEW OF SYSTEMS REVIEWED BY: PROVIDER: MARTÍN COFFEY . CONSTITUTIONAL: ANY CHANGE IN YOUR MEDICAL CONDITION? NO . CHILLS NO . FEVER NO . INFECTION: DO YOU HAVE NEW INFECTIONS? NO . DO YOU HAVE HISTORY OF MRSA? NO . MUSCULOSKELETAL: ANY NEW PATTERNS OF PAIN OR NUMBNESS? NO . GASTROENTEROLOGY: ANY NEW CHANGE IN BOWEL CONTROL? NO . GENITOURINARY: ANY NEW CHANGE IN BLADDER CONTROL? NO . IS THERE A CHANCE YOU COULD BE ? NO . HEMATOLOGY/LYMPH: DO YOU TAKE ANY BLOOD THINNERS? (FOR EXAMPLE- COUMADIN, PLAVIX, AGGRENOX, PLATEL, PRADAXA, OR XARELTO) NO . WHEN WAS YOUR LAST DOSE? DATE: TIME: . NEUROLOGY: HAVE YOU FALLEN IN THE PAST 12 MONTHS? YES FELL LAST DECEMBER, RESULTING IN TORN ROTATOR CUFF AND SHOULDER SURGERY LAST JANUARY. . ANY NEW EXTREMITY NUMBNESS OR WEAKNESS? NO . CARDIOLOGY: DO YOU HAVE A PACEMAKER OR DEFIBRILLATOR? NO . RESPIRATORY: HAVE YOU BEEN SICK IN THE PAST WEEK? NO . FEVER NO . FLU LIKE SYMPTOMS? NO . COUGH NO . INTEGUMENTARY: DO YOU HAVE ANY RASHES OR OPEN SORES? NO . ALLERGIC/IMMUNO: ARE YOU ALLERGIC TO IV DYE? NO . ANY NEW ALLERGIES? NO . PSYCHIATRIC: DO YOU HAVE THOUGHTS OF HURTING YOURSELF OR SOMEONE ELSE? NO . ARE YOU ABUSED, NEGLECTED, OR IN AN UNSAFE ENVIRONMENT? NO . ENDOCRINOLOGY: ARE YOU DIABETIC? YES . OTHER: DO YOU NEED ANY PRESCRIPTIONS? YES . IF YES, PLEASE LIST: ____CELEBREX, SOMA AND TRAMADOL . ANY NEW PROBLEMS WITH YOUR MEDICATIONS? NO . WHEN DID YOU LAST EAT? ____ . WHEN DID YOU LAST DRINK? ____ . WHAT DID YOU LAST DRINK? ____ . NAME OF PERSON DRIVING YOU HOME? ____ . DO YOU HAVE ANY OTHER QUESTIONS OR CONCERNS NO . VITAL SIGNS WT 238.8 LBS, HT 70 IN, BMI 34.26 INDEX, BP 115/56 MM HG, HR 63 /MIN, RR 18 /MIN, TEMP 96.9 F, OXYGEN SAT % 98%, SAFE IN ENV? (Y/N) YES, NA INITIALS SC 14:19, REVIEWED BY: MARCOS. EXAMINATION GENERAL EXAMINATION: GENERAL AWAKE,ALERT ,PLEASANT . PSYCH AFFECT NORMAL . LUNGS: LUNG NG ARE CLEAR TO AUSCULTATION BILATERALLY. GOOD MOVEMENT OF AIR . HEART: S1, S2 IN A REGULAR RATE AND RHYTHM. NO SIGNIFICANT MURMURS, RUBS OR GALLOPS NOTED . MUSCULOSKELETAL: MUSCLE STRENGTH TESTING 5/5 BILATERAL UPPER EXTREMITIES , PALPATION: POSITIVE FOR MILD DISCOMFORT RIGHT SHOULDER. ROJM RIGHT ARM LIMITED DUE TO INCREASE IN RIGHT SHOULDER PAIN W ABDUCTION PAST SHOULDER HEIGHT. ASSESSMENTS PAIN, JOINT, SHOULDER, RIGHT - M25.511 (PRIMARY) TREATMENT PAIN, JOINT, SHOULDER, RIGHT REFILL SOMA TABLET, 350 MG, 1 TABLET NEEDED, ORALLY FOR SPSMS AND PAIN, Q8H PRN MDD3, 30 DAYS, 90, REFILLS 2 REFILL TRAMADOL HCL TABLET, 50 MG, 1 TABLET NEEDED, ORALLY FOR PAIN, Q8H PRN MDD3, 30 DAYS, 90, REFILLS 2 REFILL CELEBREX CAPSULE, 200 MG, 1 CAPSULE, ORALLY FOR PAIN, BID DAILY NEEDED MDD2, 30 DAYS, 60, REFILLS 2 NOTES: RIGHT SHOULDER JOINT INJECTION. DISPOSITION & COMMUNICATION FOLLOW UP POST (REASON: RIGHT SHOULDER JOINT INJECTION) ELECTRONICALLY SIGNED BY ALEXX SIMMONS ON 01/08/2019 AT 08:37 AM EST DISCLAIMER : THIS IS A VISIT SUMMARY EXTRACTED FROM THE [employer] CHART. IT IS NOT A COPY OF THE [employer] PROGRESS NOTE. CHIKISD
== END ==
LOC: M PAIN 14:45
PROVIDERS: ATTEND Nurse Practitioner Family
DX: M25.511 Pain in right shoulder (principal); G89.29 Other chronic pain; I10 Essential (primary) hypertension; E11.9 Type 2 diabetes mellitus without complications; K21.9 Gastro-esophageal reflux disease without esophagitis; Z88.5 Allergy status to narcotic agent; Z91.040 Latex allergy status; Z79.84 Long term (current) use of oral hypoglycemic drugs; Z79.899 Other long term (current) drug therapy

== ENCOUNTER → 2019-02-21 | Outpatient (CLI) | payer OTHER | LOC: M PAIN 15:00 | PROVIDERS: ATTEND Anesthesiology | DX: Z53.20 Procedure and treatment not carried out because of patient's decision for unspecified reasons (principal) ==

== ENCOUNTER → 2019-03-28 | Outpatient (CLI) | payer OTHER ==
[~2019-03-28] MED LIST changes: +BUPIVACAINE HCL 0.25% 30 ML VIAL As Ordered ONE; +TRIAMCINOLONE ACETONIDE SUSP 40 MG/ML VIAL (J3301) As Ordered ONE
--- NOTE | 2019-04-15 03:17 | ECWPNPC ---
PATIENT NAME: KALEE TOVAR : 1955 GENDER: MALE VISIT DATE: 03/28/2019 DISCHARGE DATE: 03/28/19 1559 VISIT LOCKED DATE TIME: PHYSICIAN: LARON JOHNSON MD RESOURCE: LARON JOHNSON MD REASON FOR APPOINTMENT 1. TPI BILAT SHOULDER HISTORY OF PRESENT ILLNESS HISTORY OF PRESENT ILLNESS: PAIN THE PATIENT DESCRIBES THE PAIN... FALL RISK SCREENING: SCREENING :NO FALLS REPORTED IN THE LAST YEAR CURRENT MEDICATIONS TAKING TOPROL XL 100 MG TABLET EXTENDED RELEASE 24 HOUR 1 TABLET ORALLY BID TAKING CRESTOR 40 MG TABLET 1 TABLET ORALLY ONCE A DAY TAKING OMEGA 3-6-9 - CAPSULE ORALLY BID TAKING SAW PALMETTO - CAPSULE ORALLY TID TAKING ECOTRIN 325 MG TABLET DELAYED RELEASE 1 TABLET ORALLY ONCE A DAY TAKING VITAMIN D-3 5000 UNIT TABLET ORALLY DAILY TAKING CALCIUM 1200 2108-6450 MG-UNIT TABLET CHEWABLE 1 TABLET WITH A MEAL ORALLY BID TAKING OMEPRAZOLE 20 MG CAPSULE DELAYED RELEASE 1 CAP ORALLY ONCE A DAY TAKING TYLENOL 325 MG TABLET 2 TABLETS NEEDED ORALLY EVERY 6 HRS TAKING METFORMIN HCL 500 MG TABLET 1 TABLET WITH MEALS ORALLY TID TAKING TRENTAL 400 MG TABLET EXTENDED RELEASE 1 TABLET WITH MEALS ORALLY TID TAKING ZOLPIDEM TARTRATE ER 6.25 MG TABLET EXTENDED RELEASE 1 TABLET AT BEDTIME NEEDED ORALLY ONCE A DAY TAKING CLONAZEPAM 1 MG TABLET 1 TABLET ORALLY BID PRN TAKING TRILIPIX 135 MG CAPSULE DELAYED RELEASE 1 CAPSULE ORALLY ONCE A DAY TAKING ZETIA 10 MG TABLET 1 TABLET ORALLY ONCE A DAY TAKING CENTRUM - TABLET 1 CAP ORALLY BID TAKING CO Q 10 200 MG CAPSULE 1 CAPSULE WITH A MEAL ORALLY ONCE A DAY TAKING NEURONTIN 400 MG CAPSULE 3 CAPSULE ORALLY BEFORE BEDTIME TAKING TAMSULOSIN HCL 0.4 MG CAPSULE EXTENDED RELEASE ORALLY TAKING POTASSIUM CITRATE 10 MEQ TABLET ORALLY BID TAKING CELEBREX 200 MG CAPSULE 1 CAPSULE ORALLY FOR PAIN BID DAILY NEEDED MDD2 TAKING TRAMADOL HCL 50 MG TABLET 1 TABLET NEEDED ORALLY FOR PAIN Q8H PRN PAIN MDD3 3 MOS SUPPLY CAT D CHRONIC PAIN TAKING SOMA 350 MG TABLET 1 TABLET NEEDED ORALLY FOR SPSMS AND PAIN Q8H PRN MDD3 3 MOS SUPPLY CAT D CHRONIC PAIN NOT-TAKING B COMPLEX - CAPSULE ORALLY BID NOT-TAKING CYTOMEL 50 MCG TABLET 1 TABLET ON AN EMPTY STOMACH ORALLY ONCE A DAY UNKNOWN RAMIPRIL 10 MG CAPSULE 1 CAPSULE ORALLY DAILY MEDICATION LIST REVIEWED AND RECONCILED WITH THE PATIENT PAST MEDICAL HISTORY AFIB, ONE EPISODE HYPERTENSION HIGH CHOLESTEROL NIDDM GERD ARTHRITIS HYDRONEPHROSIS - BILATERAL KIDNEY STONES TORN RIGHT ROTATOR CUFF RUPTURED RIGHT BICEP ALLERGIES OXYCODONE HCL: NAUSEA - SIDE EFFECTS LATEX (FOR ALLERGY USE ONLY): RASH - ALLERGY SURGICAL HISTORY C7-T1 FUSION TITANIUM PLATE BILAT ROTATOR CUFF REPAIR 01/2018 BILAT BICEPS RUPTURED WITH SURGICAL ATTEMPT LAPRASCOPIC EXPLORATORY X4 CHOLECYSTECTOMY HOSPITALIZATION/MAJOR DIAGNOSTIC PROCEDURE BLEEDING ULCER X2 REVIEW OF SYSTEMS REVIEWED BY: PROVIDER: . CONSTITUTIONAL: ANY CHANGE IN YOUR MEDICAL CONDITION? NO . CHILLS NO . FEVER NO . INFECTION: DO YOU HAVE NEW INFECTIONS? NO . DO YOU HAVE HISTORY OF MRSA? NO . MUSCULOSKELETAL: ANY NEW PATTERNS OF PAIN OR NUMBNESS? NO . GASTROENTEROLOGY: ANY NEW CHANGE IN BOWEL CONTROL? NO . GENITOURINARY: ANY NEW CHANGE IN BLADDER CONTROL? NO . IS THERE A CHANCE YOU COULD BE ? NO . HEMATOLOGY/LYMPH: DO YOU TAKE ANY BLOOD THINNERS? (FOR EXAMPLE- COUMADIN, PLAVIX, AGGRENOX, PLATEL, PRADAXA, OR XARELTO) NO . WHEN WAS YOUR LAST DOSE? DATE: TIME: . NEUROLOGY: HAVE YOU FALLEN IN THE PAST 12 MONTHS? NO . ANY NEW EXTREMITY NUMBNESS OR WEAKNESS? NO . CARDIOLOGY: DO YOU HAVE A PACEMAKER OR DEFIBRILLATOR? NO . RESPIRATORY: HAVE YOU BEEN SICK IN THE PAST WEEK? NO . FEVER NO . FLU LIKE SYMPTOMS? NO . COUGH NO . INTEGUMENTARY: DO YOU HAVE ANY RASHES OR OPEN SORES? NO . ALLERGIC/IMMUNO: ARE YOU ALLERGIC TO IV DYE? NO . ANY NEW ALLERGIES? NO . PSYCHIATRIC: DO YOU HAVE THOUGHTS OF HURTING YOURSELF OR SOMEONE ELSE? NO . ARE YOU ABUSED, NEGLECTED, OR IN AN UNSAFE ENVIRONMENT? NO . ENDOCRINOLOGY: ARE YOU DIABETIC? NO . OTHER: DO YOU NEED ANY PRESCRIPTIONS? NO . IF YES, PLEASE LIST: ____ . ANY NEW PROBLEMS WITH YOUR MEDICATIONS? NO . WHEN DID YOU LAST EAT? ____03-27-19 2200 . WHEN DID YOU LAST DRINK? ____03-28-19 . WHAT DID YOU LAST DRINK? ____WATER . NAME OF PERSON DRIVING YOU HOME? LYNDA____ . DO YOU HAVE ANY OTHER QUESTIONS OR CONCERNS NO . VITAL SIGNS WT 241 LBS, HT 70 IN, BMI 34.58 INDEX, BP 133/63 MM HG, HR 64 /MIN, RR 18 /MIN, TEMP 97.0 F, OXYGEN SAT % 97%, NA INITIALS AW 1448. ASSESSMENTS MYALGIA, OTHER SITE - M79.18 (PRIMARY) PROCEDURES PN TRIGGER POINT INJECTION WITH STEROIDS PRE PROCEDURE DIAGNOSIS 1. MYALGIA 2. PAIN AT BILATERAL SHOULDER AREA. POST PROCEDURE DIAGNOSIS 1. MYALGIA 2. PAIN AT BILATERAL SHOULDER AREA. PROCEDURE TRIGGER POINT INJECTION AT RIGHT AND LEFT SHOULDER AREA. SURGEON DR. LARON JOHNSON LEGAL ASSISTANT NONE ANESTHESIA LOCAL PRE PROCEDURE NOTE THE PATIENT HAS A HISTORY OF CHRONIC PAIN AT THE RIGHT AND LEFT SHOULDER AREA. I EVALUATE THE PATIENT AND REVIEWED THE CHART. THERE IS EVIDENCE OF BANDS OF TISSUE WITH RESTRICTION OF MOVEMENT AND PRESENCE OF TRIGGER POINT AT THE AFFECTED AREA. I WENT OVER THE RISKS, ALTERNATIVES, AND BENEFITS ASSOCIATED WITH THIS PROCEDURE. THE PATIENT WOULD LIKE TO PROCEED AND GIVE CONSENT TO PERFORMED THE PROCEDURE. THE PATIENT DENIES UNEXPLAINABLE WEIGHT LOSS, FEVER, CHILLS, OR NEW CHANGES IN URINARY OR BOWEL CONTROL DESCRIPTION OF PROCEDURE THE PATIENT WAS BROUGHT TO THE PROCEDURE ROOM AND PLACED IN THE SITTING POSITION. THE AREA WAS CLEANED WITH ALCOHOL. THE PROCEDURE WAS DONE USING ASEPTIC STERILE TECHNIQUE. I CHECKED LATERALITY AND THE LEVEL WHERE THE PROCEDURE WAS GOING TO BE PERFORMED WITH THE PATIENT AND THE SUPPORTING STAFF AT THE MOMENT OF THE TIME OUT IN THE PROCEDURE ROOM. USING A 25-GAUGE NEEDLE, TRIGGER POINTS WERE INJECTED AT THE RIGHT AND LEFT SHOULDER AREA WITH A TOTAL OF 40 ML OF BUPIVACAINE 0.25% AND KENALOG 40 MG. THERE WAS NO EVIDENCE OF BLOOD, PARESTHESIA OR CEREBROSPINAL FLUID DURING THE PROCEDURE. THE PATIENT WAS SENT TO THE RECOVERY ROOM. THE PATIENT WAS MOVING THE EXTREMITIES AND DOING WELL. THERE WAS NO COMPLICATION DURING THE PROCEDURE POST PROCEDURE NOTE THE PATIENT WILL BE SEEN IN A FOLLOW UP IN THE NEXT FEW WEEKS. INSTRUCTIONS WERE GIVEN, QUESTIONS WERE ANSWERED, AND THE PATIENT EXPRESSED UNDERSTANDING AND AGREES WITH THE PLAN. I, GUILLERMINA MATHEW, DOCUMENTED THE ABOVE INFORMATION ACTING A SCRIBE FOR DR. JOHNSON. I HAVE REVIEWED THE ABOVE DOCUMENT, WRITTEN BY GUILLERMINA MATHEW SCRIBJing AND I VERIFY THAT IT IS ACCURATE. PROCEDURE CODES 28076 INJ TRIGGER POINT 02/13 [facility] DISPOSITION & COMMUNICATION FOLLOW UP 3 WEEKS ELECTRONICALLY SIGNED BY LARON JOHNSON MD, MD ON 04/14/2019 AT 04:37 PM EST DISCLAIMER : THIS IS A VISIT SUMMARY EXTRACTED FROM THE [employer] CHART. IT IS NOT A COPY OF THE [employer] PROGRESS NOTE. MAUREEN
== END ==
LOC: M PAIN 15:00
PROVIDERS: ATTEND Anesthesiology
DX: M79.18 Myalgia, other site (principal); I10 Essential (primary) hypertension; E78.00 Pure hypercholesterolemia, unspecified; E11.9 Type 2 diabetes mellitus without complications; K21.9 Gastro-esophageal reflux disease without esophagitis; Z88.5 Allergy status to narcotic agent; Z91.040 Latex allergy status; Z79.891 Long term (current) use of opiate analgesic; Z79.84 Long term (current) use of oral hypoglycemic drugs; Z79.899 Other long term (current) drug therapy
CPT/HCPCS: 20552; J3301

== ENCOUNTER → 2019-04-15 | Outpatient (REF) | payer OTHER ==
[~2019-04-15] MED LIST changes: -BUPIVACAINE HCL 0.25% 30 ML VIAL As Ordered ONE; -TRIAMCINOLONE ACETONIDE SUSP 40 MG/ML VIAL (J3301) As Ordered ONE
[2019-04-15 13:17] LABS: VITAMIN B12 LEVEL 958 PG/ML (247-911)
[2019-04-15 13:19] LABS: FERRITIN 45 NG/ML (26-388)
== END ==
LOC: M LAB REF 12:10
PROVIDERS: ATTEND Internal Medicine
DX: D64.9 Anemia, unspecified (principal)

== ENCOUNTER → 2019-05-27 | Outpatient (CLI) | payer OTHER ==
--- NOTE | 2019-05-27 23:27 | ECWPNPC ---
PATIENT NAME: KALEE TOVAR : 1955 GENDER: MALE VISIT DATE: 05/27/2019 DISCHARGE DATE: 05/27/19 1415 VISIT LOCKED DATE TIME: PHYSICIAN: MARTÍN DOUGLAS RESOURCE: MARTÍN DOUGLAS REASON FOR APPOINTMENT 1. POST TPI [phone] HISTORY OF PRESENT ILLNESS HISTORY OF PRESENT ILLNESS: PATIENT HAS AGREED TO TELEMED VISIT VIA ZOOM TODAY. HAD TRIGGER POINT INJECTIONS TO BILATERAL SHOULDERS ON 03/28/2019. STATES INJECTIONS HELPED THE SHOULDER PAIN, SOME OF WHICH CONTINUES TODAY. CHIEF AREA OF PAIN IS NECK. REPORTING DIFFICULTY SLEEPING AT NIGHT DUE TO NECK PAIN. RATING PAIN VAS 4/10. HAS RESPONDED WELL TO CERVICAL THERAPEUTIC FACET BLOCKS IN THE PAST. FINDS CURRENT CHRONIC PAIN MEDICINE SOMEWHAT EFFECTIVE AT REDUCING PAIN AND KEEPING HIM FUNCTIONAL. DENIES ADVERSE SIDE EFFECTS. PAIN THE PATIENT DESCRIBES THE PAIN... FALL RISK SCREENING: SCREENING :NO FALLS REPORTED IN THE LAST YEAR CURRENT MEDICATIONS TAKING TOPROL XL 100 MG TABLET EXTENDED RELEASE 24 HOUR 1 TABLET ORALLY BID TAKING CRESTOR 40 MG TABLET 1 TABLET ORALLY ONCE A DAY TAKING OMEGA 3-6-9 - CAPSULE ORALLY BID TAKING SAW PALMETTO - CAPSULE ORALLY TID TAKING ECOTRIN 325 MG TABLET DELAYED RELEASE 1 TABLET ORALLY ONCE A DAY TAKING VITAMIN D-3 5000 UNIT TABLET ORALLY DAILY TAKING CALCIUM 1200 7865-8253 MG-UNIT TABLET CHEWABLE 1 TABLET WITH A MEAL ORALLY BID TAKING OMEPRAZOLE 20 MG CAPSULE DELAYED RELEASE 1 CAP ORALLY ONCE A DAY TAKING TYLENOL 325 MG TABLET 2 TABLETS NEEDED ORALLY EVERY 6 HRS TAKING METFORMIN HCL 500 MG TABLET 1 TABLET WITH MEALS ORALLY TID TAKING TRENTAL 400 MG TABLET EXTENDED RELEASE 1 TABLET WITH MEALS ORALLY TID TAKING ZOLPIDEM TARTRATE ER 6.25 MG TABLET EXTENDED RELEASE 1 TABLET AT BEDTIME NEEDED ORALLY ONCE A DAY TAKING CLONAZEPAM 1 MG TABLET 1 TABLET ORALLY BID PRN TAKING TRILIPIX 135 MG CAPSULE DELAYED RELEASE 1 CAPSULE ORALLY ONCE A DAY TAKING ZETIA 10 MG TABLET 1 TABLET ORALLY ONCE A DAY TAKING CENTRUM - TABLET 1 CAP ORALLY BID TAKING CO Q 10 200 MG CAPSULE 1 CAPSULE WITH A MEAL ORALLY ONCE A DAY TAKING NEURONTIN 400 MG CAPSULE 4 CAPSULE ORALLY BEFORE BEDTIME TAKING TAMSULOSIN HCL 0.4 MG CAPSULE EXTENDED RELEASE ORALLY TAKING POTASSIUM CITRATE 10 MEQ TABLET ORALLY BID TAKING CELEBREX 200 MG CAPSULE 1 CAPSULE ORALLY FOR PAIN BID DAILY NEEDED MDD2 TAKING SOMA 350 MG TABLET 1 TABLET NEEDED ORALLY FOR SPSMS AND PAIN Q8H PRN MDD3 3 MOS SUPPLY CAT D CHRONIC PAIN TAKING TRAMADOL HCL 50 MG TABLET 1 TABLET NEEDED ORALLY FOR PAIN Q8H PRN PAIN MDD3 3 MOS SUPPLY CAT D CHRONIC PAIN NOT-TAKING B COMPLEX - CAPSULE ORALLY BID NOT-TAKING CYTOMEL 50 MCG TABLET 1 TABLET ON AN EMPTY STOMACH ORALLY ONCE A DAY NOT-TAKING RAMIPRIL 10 MG CAPSULE 1 CAPSULE ORALLY DAILY MEDICATION LIST REVIEWED AND RECONCILED WITH THE PATIENT PAST MEDICAL HISTORY AFIB, ONE EPISODE HYPERTENSION HIGH CHOLESTEROL NIDDM GERD ARTHRITIS HYDRONEPHROSIS - BILATERAL KIDNEY STONES TORN RIGHT ROTATOR CUFF RUPTURED RIGHT BICEP ALLERGIES OXYCODONE HCL: NAUSEA - SIDE EFFECTS LATEX (FOR ALLERGY USE ONLY): RASH - ALLERGY SURGICAL HISTORY C7-T1 FUSION TITANIUM PLATE BILAT ROTATOR CUFF REPAIR 01/2018 BILAT BICEPS RUPTURED WITH SURGICAL ATTEMPT LAPRASCOPIC EXPLORATORY X4 CHOLECYSTECTOMY FAMILY HISTORY NO FAMILY HISTORY DOCUMENTED. SOCIAL HISTORY GENERAL: TOBACCO USE ARE YOU A: NONSMOKER. DIET: NO CONCENTRATED SWEETS., CARBOHYDRATE CONTROLLED. LANGUAGE LANGUAGES SPOKEN:BOTH MONGOLIAN AND BHUTANESE DOMESTIC VIOLENCE DO YOU FEEL SAFE IN YOUR ENVIRONMENT?YES NEW PATIENT PAIN DIARY TODAY'S VISIT 05/27/2019. PT HAD TRIGGER POINT INJECTIONS 03/28, STATES THEY WORKED VERY WELL, BUT PAIN IS RETURNING. HE WOULD LIKE TO INQUIRE ABOUT ANOTHER FACET BLOCK, STATES THEY WERE THE MOST EFFECTIVE. PATIENT DESCRIBES PAIN :HAVE IT ALL THE TIME, SHARP, SORE FROM 0-10, WHAT LEVEL IS YOUR PAIN TODAY?4 RECREATIONAL DRUG USE DRUG USE?NO LEARNING BARRIERS / SPECIAL NEEDS BARRIERS TO LEARNING?NO HEARING IMPAIRED?NO VISION IMPAIRED?YES COGNITIVELY IMPAIRED?NO :CORRECTIVE LENSES READINESS TO LEARN?YES LEARNING PREFERENCES?YES :BOOKLETS, HANDOUTS LEARNING CAPABILITIES PRESENT?YES EMOTIONAL BARRIERS?NO SPECIAL DEVICES?NO FORM SETTER/DRIVER NEEDED?NO PAIN CLINIC PFS, CLERGY, PUBLIC HEALTH REFERRALS PFS REFERRAL NEEDED?NO CLERGY REFERRAL NEEDED?NO PUBLIC HEALTH REFERRAL NEEDED?NO WAS THE PROVIDER NOTIFIED OF ANY PERTINENT INFO?YES HAS THE PATIENT BEEN EDUCATED REGARDING HIS/HER PLAN OF CARE?YES HAS THE PATIENT BEEN EDUCATED REGARDING PAIN, THE RISK FOR PAIN, THE IMPORTANCE OF EFFECTIVE PAIN MANAGEMENT, AND THE PAIN ASSESSMENT PROCESS?YES LATEX QUESTIONNAIRE LATEX ALLERGY : HAVE YOU EVER DEVELOPED ANY TYPE OF REACTION AFTER HANDLING LATEX PRODUCTS SUCH RUBBER GLOVES, CONDOMS, DIAPHRAGMS, BALLOONS, SOCKS, OR UNDERWEAR?YES LATEX ALLERGY : HAVE YOU EVER DEVELOPED ANY TYPE OF REACTION DURING OR AFTER DENTAL APPOINTMENT, VAGINAL/RECTAL EXAMINATION, SURGICAL PROCEDURE, OR ANY OTHER EXPOSURE?NO - PLEASE INDICATE :RUBBER GLOVES DATE ASKED : 02/21/2019 LATEX RISK : HAVE YOU EVER HAD ANY DIFFICULTY BREATHING OR HIVES AFTER EATING OR HANDLING ANY FRUITS, OR VEGETABLES; SUCH KIWI, BANANAS, STONE FRUITS, OR CHESTNUTSNO LATEX RISK : DO YOU HAVE A PREVIOUS PERSONAL HISTORY OF MORE THAN NINE SURGERIES, SPINA BIFIDA, OR REPEATED CATHERIZATIONS? YES - PLEASE INDICATE : > 9 SURGERIES LATEX RISK : ARE YOU FREQUENTLY EXPOSED TO LATEX PRODUCTS IN YOUR OCCUPATION?YES CAFFEINE CAFFEINE USE?YES HOW OFTEN AND HOW MUCH? 2 CUPS COFFEE/DAY ADVANCE DIRECTIVE ADVANCE DIRECTIVE DISCUSSED WITH PATIENT:YES PT REPORTS HIS IS HIS HCP. SALLIE CAMARENAGO [phone], UATSDIN [id number] RESTORATION ALCOHOL SCREENING DID YOU HAVE A DRINK CONTAINING ALCOHOL IN THE PAST YEAR?NO POINTS0 INTERPRETATIONNEGATIVE HOSPITALIZATION/MAJOR DIAGNOSTIC PROCEDURE BLEEDING ULCER X2 REVIEW OF SYSTEMS REVIEWED BY: PROVIDER: MARTÍN COFFEY . CONSTITUTIONAL: ANY CHANGE IN YOUR MEDICAL CONDITION? NO . CHILLS NO . FEVER NO . INFECTION: DO YOU HAVE NEW INFECTIONS? NO . DO YOU HAVE HISTORY OF MRSA? NO . MUSCULOSKELETAL: ANY NEW PATTERNS OF PAIN OR NUMBNESS? YES NECK IS GETTING WORSE . GASTROENTEROLOGY: ANY NEW CHANGE IN BOWEL CONTROL? NO . GENITOURINARY: ANY NEW CHANGE IN BLADDER CONTROL? NO . IS THERE A CHANCE YOU COULD BE ? NO . HEMATOLOGY/LYMPH: DO YOU TAKE ANY BLOOD THINNERS? (FOR EXAMPLE- COUMADIN, PLAVIX, AGGRENOX, PLATEL, PRADAXA, OR XARELTO) NO . WHEN WAS YOUR LAST DOSE? DATE: TIME: . NEUROLOGY: HAVE YOU FALLEN IN THE PAST 12 MONTHS? NO . ANY NEW EXTREMITY NUMBNESS OR WEAKNESS? NO . CARDIOLOGY: DO YOU HAVE A PACEMAKER OR DEFIBRILLATOR? NO . RESPIRATORY: HAVE YOU BEEN SICK IN THE PAST WEEK? NO . FEVER NO . FLU LIKE SYMPTOMS? NO . COUGH NO . INTEGUMENTARY: DO YOU HAVE ANY RASHES OR OPEN SORES? NO . ALLERGIC/IMMUNO: ARE YOU ALLERGIC TO IV DYE? NO . ANY NEW ALLERGIES? NO . PSYCHIATRIC: DO YOU HAVE THOUGHTS OF HURTING YOURSELF OR SOMEONE ELSE? NO . ARE YOU ABUSED, NEGLECTED, OR IN AN UNSAFE ENVIRONMENT? NO . ENDOCRINOLOGY: ARE YOU DIABETIC? NO . OTHER: DO YOU NEED ANY PRESCRIPTIONS? YES . IF YES, PLEASE LIST: ____CELEBREX, SOMA, TRAMADOL . ANY NEW PROBLEMS WITH YOUR MEDICATIONS? NO . WHEN DID YOU LAST EAT? ____ . WHEN DID YOU LAST DRINK? ____ . WHAT DID YOU LAST DRINK? ____ . NAME OF PERSON DRIVING YOU HOME? ____ . DO YOU HAVE ANY OTHER QUESTIONS OR CONCERNS NO . EXAMINATION GENERAL EXAMINATION: GENERALNO ACUTE DISTRESS, WELL NOURISHED AND HYDRATED. PSYCHAPPROPRIATE MOOD AND AFFECT . FACE:UNREMARKABLE. 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 LAS. DISPOSITION & COMMUNICATION FOLLOW UP 6 WEEKS CONSIDER CERVICAL FACETS ELECTRONICALLY SIGNED BY ALEXX SIMMONS ON 05/27/2019 AT 02:06 PM EDT DISCLAIMER : THIS IS A VISIT SUMMARY EXTRACTED FROM THE [employer] CHART. IT IS NOT A COPY OF THE [employer] [facility] PROGRESS NOTE. MAUREEN
== END ==
LOC: M PAIN 10:15
PROVIDERS: ATTEND Nurse Practitioner Family
DX: M25.511 Pain in right shoulder (principal); M50.120 Mid-cervical disc disorder, unspecified level; M47.813 Spondylosis without myelopathy or radiculopathy, cervicothoracic region; I10 Essential (primary) hypertension; Z79.84 Long term (current) use of oral hypoglycemic drugs; Z79.891 Long term (current) use of opiate analgesic; Z79.899 Other long term (current) drug therapy; Z88.5 Allergy status to narcotic agent; Z91.040 Latex allergy status

== ENCOUNTER → 2019-07-27 | Outpatient (CLI) | payer OTHER | LOC: M LABSMTC 09:58 | PROVIDERS: ATTEND Anesthesiology | DX: Z03.818 Encounter for observation for suspected exposure to other biological agents ruled out (principal); Z11.59 Encounter for screening for other viral diseases | CPT/HCPCS: C9803; U0003 ==

== ENCOUNTER → 2019-07-30 | Outpatient (CLI) | payer OTHER ==
[~2019-07-30] MED LIST changes: +BUPIVACAINE HCL 0.25% 30ML VIAL As Ordered ONE; +ISOVUE-M 300 61% 15ML VIAL As Ordered ONE; +LIDOCAINE 1% SDV 30ML VIAL As Ordered ONE; +TRIAMCINOLONE ACETONIDE SUSP 40 MG/ML VIAL (J3301) As Ordered ONE
--- NOTE | 2019-07-30 16:12 | REP ---
Clinical: Facet block. Technique: Intraoperative fluoroscopic imaging using portable C-arm technique. Findings: Single image demonstrates catheters and small amounts of injected contrast at bilateral cervical facet joints. Total fluoroscopic time 31 seconds. Facet block performed by Dr. Coello. Electronically Signed by Hung White MD 07/30/2019 04:03 P
--- NOTE | 2019-07-31 01:14 | ECWPNPC ---
PATIENT NAME: KALEE TOVAR : 1955 GENDER: MALE VISIT DATE: 07/30/2019 DISCHARGE DATE: 07/30/19 1612 VISIT LOCKED DATE TIME: PHYSICIAN: LARON JOHNSON MD RESOURCE: LARON JOHNSON MD REASON FOR APPOINTMENT 1. CFBT C2-C3, C3-C4, C4-C5 HISTORY OF PRESENT ILLNESS GENERAL: 64-YEAR-OLD MALE PATIENT WITH A HISTORY OF CHRONIC NECK PAIN. THE PATIENT DESCRIBES THE PAIN ACHING AND SEVERE WITH A PAIN SCORE RANGING FROM 6-9/10 DEPENDING ON PHYSICAL ACTIVITY. THE PATIENT STATES THAT THE PAIN IS LOCATED OVER THE NECK AND RADIATES TO THE HEAD ON BOTH SIDES. THE PATIENT STATES THAT THE PAIN AFFECTS HIS ACTIVITIES OF DAILY LIVING SUCH WORKING. PATIENT DENIES UNEXPLAINABLE WEIGHT LOSS, FEVER, CHILLS, NEW CHANGES ON HIS URINARY OR BOWEL CONTROL. FALL RISK SCREENING: SCREENING :NO FALLS REPORTED IN THE LAST YEAR PAIN SCREENING: PATIENT HAS A COMPLAINT OF ACUTE OR CHRONIC PAIN :YES LOCATION OF PAIN:NECK, LEFT SHOULDER, RIGHT SHOULDER, HEAD INTENSITY OF PAIN (SCALE OF 1 TO 10):8 WHAT DOES YOUR PAIN FEEL LIKE:STABBING, BURNING PAIN IS INCREASED BY:ACTIVITIES PAIN IS DECREASED BY:OTHERS COLD PACKS, BIO WAVE NURSING NOTE: -. PAIN CENTER INTAKE QUESTIONS: DO YOU HAVE A HISTORY OF MRSA? :NO DO YOU TAKE A BLOOD THINNERS? :NO DO YOU HAVE ANY BLEEDING DISORDERS? :NO ANY NEW NUMBNESS OR WEAKNESS IN YOUR LEGS OR ARMS? :NO ANY PACEMAKER,DEFIBRILLATOR, OR DORSAL COLUMN STIMULATOR? :NO DO YOU HAVE ANY RASHES OR OPEN SORES? :NO ARE YOU ALLERGIC TO IV DYE? :NO ARE YOU DIABETIC? :YES MANAGED WITH ORAL MEDS FSBS 7AM 92 ANY NEW PROBLEMS WITH YOUR MEDICATIONS? :NO HAVE YOU RECEIVED A VACCINE IN THE PAST 30 DAYS? :NO DO YOU PLAN TO RECEIVE A VACCINE IN THE NEXT 21 DAYS? :NO DO YOU TAKE ANY IMMUNOSUPPRESSIVE MEDICATIONS? :NO ANY HISTORY OF SEIZURES? :NO ANY HISTORY OF CARDIAC ISSUES OR EVENTS? :NO DO YOU HAVE SLEEP APNEA? : NO. ANY RECENT HEAD INJURY? :NO DO YOU HAVE ANY NEW INFECTIONS? :NO IS THERE A CHANCE YOU COULD BE ? :NO ARE YOU BREAST FEEDING? :NO WHEN DID YOU LAST EAT? : 7PM [id number] WHEN DID YOU LAST DRINK? : 6AM TODAY WITH PILLS WHAT DID YOU LAST DRINK? : -WATER NAME OF PERSON DRIVING YOU HOME? : SALLIE MALDONADO DO YOU HAVE ANY OTHER QUESTIONS OR CONCERNS? : -NO CURRENT MEDICATIONS TAKING TOPROL XL 100 MG TABLET EXTENDED RELEASE 24 HOUR 1 TABLET ORALLY BID, NOTES: 7AM TAKING CRESTOR 40 MG TABLET 1 TABLET ORALLY ONCE A DAY, NOTES: 12 NM 07/29/2019 TAKING OMEGA 3-6-9 - CAPSULE ORALLY BID, NOTES: 1AM TAKING SAW PALMETTO - CAPSULE ORALLY TID, NOTES: 1AM TAKING ECOTRIN 325 MG TABLET DELAYED RELEASE 1 TABLET ORALLY ONCE A DAY, NOTES: SUNDAY TAKING VITAMIN D-3 5000 UNIT TABLET ORALLY DAILY, NOTES: 1AM TAKING CALCIUM 1200 4944-1553 MG-UNIT TABLET CHEWABLE 1 TABLET WITH A MEAL ORALLY BID, NOTES: 1AM TAKING OMEPRAZOLE 20 MG CAPSULE DELAYED RELEASE 1 CAP ORALLY ONCE A DAY, NOTES: 7AM TAKING TYLENOL 325 MG TABLET 2 TABLETS NEEDED ORALLY EVERY 6 HRS, NOTES: NOT LATELY TAKING METFORMIN HCL 500 MG TABLET 1 TABLET WITH MEALS ORALLY TID, NOTES: 830 PM 07/28 TAKING TRENTAL 400 MG TABLET EXTENDED RELEASE 1 TABLET WITH MEALS ORALLY TID, NOTES: 830 PM 07/28 TAKING ZOLPIDEM TARTRATE ER 6.25 MG TABLET EXTENDED RELEASE 1 TABLET AT BEDTIME NEEDED ORALLY ONCE A DAY, NOTES: 830 PM 07/28 TAKING CLONAZEPAM 1 MG TABLET 1 TABLET ORALLY BID PRN, NOTES: 830PM 07/28 TAKING TRILIPIX 135 MG CAPSULE DELAYED RELEASE 1 CAPSULE ORALLY ONCE A DAY, NOTES: 7AM 07/29 TAKING ZETIA 10 MG TABLET 1 TABLET ORALLY ONCE A DAY, NOTES: 7AM TODAY TAKING CENTRUM - TABLET 1 CAP ORALLY BID, NOTES: 830PM 07/28 TAKING CO Q 10 200 MG CAPSULE 1 CAPSULE WITH A MEAL ORALLY ONCE A DAY, NOTES: 7AM TODAY TAKING NEURONTIN 400 MG CAPSULE 4 CAPSULE ORALLY BEFORE BEDTIME, NOTES: 830PM 07/28 TAKING TAMSULOSIN HCL 0.4 MG CAPSULE EXTENDED RELEASE ORALLY , NOTES: 7AM TODAY TAKING POTASSIUM CITRATE 10 MEQ TABLET ORALLY BID, NOTES: 7AM TODAY TAKING CELEBREX 200 MG CAPSULE 1 CAPSULE ORALLY FOR PAIN BID DAILY NEEDED MDD2, NOTES: 830PM 07/28 TAKING SOMA 350 MG TABLET 1 TABLET NEEDED ORALLY FOR SPSMS AND PAIN Q8H PRN MDD3 3 MOS SUPPLY CAT D CHRONIC PAIN, NOTES: 830PM 07/28 TAKING TRAMADOL HCL 50 MG TABLET 1 TABLET NEEDED ORALLY FOR PAIN Q8H PRN PAIN MDD3 3 MOS SUPPLY CAT D CHRONIC PAIN, NOTES: 830PM 6/16 NOT-TAKING B COMPLEX - CAPSULE ORALLY BID NOT-TAKING CYTOMEL 50 MCG TABLET 1 TABLET ON AN EMPTY STOMACH ORALLY ONCE A DAY NOT-TAKING RAMIPRIL 10 MG CAPSULE 1 CAPSULE ORALLY DAILY MEDICATION LIST REVIEWED AND RECONCILED WITH THE PATIENT PAST MEDICAL HISTORY AFIB, ONE EPISODE HYPERTENSION HIGH CHOLESTEROL NIDDM GERD ARTHRITIS HYDRONEPHROSIS - BILATERAL KIDNEY STONES TORN RIGHT ROTATOR CUFF RUPTURED RIGHT BICEP ALLERGIES OXYCODONE HCL: NAUSEA - SIDE EFFECTS LATEX (FOR ALLERGY USE ONLY): RASH - ALLERGY SURGICAL HISTORY C7-T1 FUSION TITANIUM PLATE BILAT ROTATOR CUFF REPAIR 01/2018 BILAT BICEPS RUPTURED WITH SURGICAL ATTEMPT LAPRASCOPIC EXPLORATORY X4 CHOLECYSTECTOMY FAMILY HISTORY NO FAMILY HISTORY DOCUMENTED. SOCIAL HISTORY GENERAL: TOBACCO USE ARE YOU A: NONSMOKER. LATEX QUESTIONNAIRE LATEX ALLERGY : HAVE YOU EVER DEVELOPED ANY TYPE OF REACTION AFTER HANDLING LATEX PRODUCTS SUCH RUBBER GLOVES, CONDOMS, DIAPHRAGMS, BALLOONS, SOCKS, OR UNDERWEAR?YES - PLEASE INDICATE :RUBBER GLOVES LATEX ALLERGY : HAVE YOU EVER DEVELOPED ANY TYPE OF REACTION DURING OR AFTER DENTAL APPOINTMENT, VAGINAL/RECTAL EXAMINATION, SURGICAL PROCEDURE, OR ANY OTHER EXPOSURE?NO LATEX RISK : HAVE YOU EVER HAD ANY DIFFICULTY BREATHING OR HIVES AFTER EATING OR HANDLING ANY FRUITS, OR VEGETABLES; SUCH KIWI, BANANAS, STONE FRUITS, OR CHESTNUTSNO LATEX RISK : DO YOU HAVE A PREVIOUS PERSONAL HISTORY OF MORE THAN NINE SURGERIES, SPINA BIFIDA, OR REPEATED CATHERIZATIONS? YES - PLEASE INDICATE : > 9 SURGERIES LATEX RISK : ARE YOU FREQUENTLY EXPOSED TO LATEX PRODUCTS IN YOUR OCCUPATION?YES DATE ASKED : 07/30/2019 ALCOHOL SCREENING DID YOU HAVE A DRINK CONTAINING ALCOHOL IN THE PAST YEAR?NO POINTS0 INTERPRETATIONNEGATIVE RECREATIONAL DRUG USE DRUG USE?NO CAFFEINE CAFFEINE USE?YES HOW OFTEN AND HOW MUCH? 2 CUPS COFFEE/DAY MORAVIAN [id number] TENRIISM LANGUAGE LANGUAGES SPOKEN:BOTH GEORGIAN AND GEORGIAN LEARNING BARRIERS / SPECIAL NEEDS BARRIERS TO LEARNING?NO HEARING IMPAIRED?NO VISION IMPAIRED?YES COGNITIVELY IMPAIRED?NO :CORRECTIVE LENSES READINESS TO LEARN?YES LEARNING PREFERENCES?YES :BOOKLETS, HANDOUTS LEARNING CAPABILITIES PRESENT?YES EMOTIONAL BARRIERS?NO SPECIAL DEVICES?NO ADVERTISING ASSOCIATE NEEDED?NO DOMESTIC VIOLENCE DO YOU FEEL SAFE IN YOUR ENVIRONMENT?YES DIET: NO CONCENTRATED SWEETS., CARBOHYDRATE CONTROLLED. PAIN CLINIC PFS, CLERGY, PUBLIC HEALTH REFERRALS PFS REFERRAL NEEDED?NO CLERGY REFERRAL NEEDED?NO PUBLIC HEALTH REFERRAL NEEDED?NO WAS THE PROVIDER NOTIFIED OF ANY PERTINENT INFO?YES HAS THE PATIENT BEEN EDUCATED REGARDING HIS/HER PLAN OF CARE?YES HAS THE PATIENT BEEN EDUCATED REGARDING PAIN, THE RISK FOR PAIN, THE IMPORTANCE OF EFFECTIVE PAIN MANAGEMENT, AND THE PAIN ASSESSMENT PROCESS?YES ADVANCE DIRECTIVE ADVANCE DIRECTIVE DISCUSSED WITH PATIENT:YES PT REPORTS HIS IS HIS HCP. SALLIE VELAZQUEZ [phone], HOSPITALIZATION/MAJOR DIAGNOSTIC PROCEDURE BLEEDING ULCER X2 VITAL SIGNS WT 241 LBS, HT 70 IN, BMI 34.58 INDEX, BP 125/61 MM HG, HR 60 /MIN, RR 18 /MIN, TEMP 97.5 F, OXYGEN SAT % 97%, SAFE IN ENV? (Y/N) Y, NA INITIALS SC 14:09, REVIEWED BY: LE. EXAMINATION GENERAL EXAMINATION: THE PATIENT IS ALERT, ORIENTED TIMES THREE AND COOPERATIVE. HEART SHOWS REGULAR RHYTHM, NO MURMURS AND NO GALLOPS. LUNGS ARE CLEAR TO AUSCULTATION. THE PATIENT IS TENDER OVER THE CERVICAL FACETS OF THE NECK. CT DATED 12/04/2014 SHOWS SURGICAL CHANGES. 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 TOVAR REGARDING HIS TREATMENT OPTIONS AND CARE. WE HAVE AGREED TO DO A BILATERAL C2-C3, BILATERAL C3-C4 AND BILATERAL C4-C5 THERAPEUTIC CERVICAL FACET JOINT BLOCKS. THE PATIENT UNDERSTANDS AND IS AGREEMENT WITH THIS PLAN. PROCEDURES PAIN NURSING RECORD PRE-PROCEDURE IV SITE RIGHT HAND, IV STARTED # 22, IV STARTED BY: Marifer FLOYD RN, IV ATTEMPTS 1, PRE-PROCEDURE ORAL MEDICATIONS N/A PROCEDURE IN ROOM 1515 PT AMBULATED TO PROCEDURE ROOM AND POSITIONED SELF ON TABLE WITH MIN 1 ASSIST, GAIT STEADY, PT TOLERATED AMBULATION AND POSITIONING WELL., PHYSICIAN IN ROOM 1527, START 1534, FINISH 1547, PHYSICIAN OUT OF ROOM 1550, OUT OF ROOM 1559 PT AMBULATED FROM PROCEDURE ROOM TO RECOVERY ROOM, GAIT STEADY, PT TOLERATED PROCEDURE WELL, STEROID KENALOG 80MG, O2 RA, ECG OTHER SINUS LASHAWN, PATIENT SHIELDED YES, SAFETY STRAP YES, PREP CHLOROPREP DSHERMAREK RN, IV INFUSED N/A, DRESSING TEGADERM MD JOHNSON LOC: GREY FLOYD RN 07/30/2019 3:24:19 PM > , 1. ALERT, ORIENTED RESP: GREY FLOYD RN 07/30/2019 3:24:24 PM > , 1. REGULAR, NO DYSPNEA COLOR: GREY FLOYD RN 07/30/2019 3:24:32 PM > , 1. PINK SKIN: GREY FLOYD RN 07/30/2019 3:24:38 PM > , 1. WARM, DRY POSITION: GREY FLOYD RN 07/30/2019 3:24:48 PM > 125/58, 51, 16, 96% , GREY FLOYD RN 07/30/2019 3:39:20 PM > 124/60, 50, 16, 97% DISCHARGE ,GREY Gutierrez RN 07/30/2019 4:07:39 PM > 132/74, 60, 16, 99% VITALS: POST PAIN 2/10, DRESSING SITE DRY AND INTACT, IV DISCONTINUED, SITE CLEAR, CATHETER INTACT, GAIT STEADY, TEACHING COMPLETED, PATIENT ACKNOWLEDGES UNDERSTANDING YES, PATIENT DISCHARGED AT 1408 DISCHARGE: POST PAIN 2/10, DRESSING SITE DRY AND INTACT, IV DISCONTINUED, SITE CLEAR, CATHETER INTACT, GAIT STEADY, TEACHING COMPLETED, PATIENT ACKNOWLEDGES UNDERSTANDING YES, PATIENT DISCHARGED AT 1408 PN CERVICAL FACET BLOCK LOW BILATERAL CERVICAL PRE PROCEDURE DIAGNOSIS CERVICAL SPONDYLOSIS, POST CERVICAL LAMINECTOMY SYNDROME. POST PROCEDURE DIAGNOSIS CERVICAL SPONDYLOSIS, POST CERVICAL LAMINECTOMY SYNDROME. PROCEDURE BILATERAL C2-C3, BILATERAL C3-C4 AND BILATERAL C4-[id number] CERVICAL FACET BLOCK SURGEON DR. LARON JOHNSON JAVASCRIPT DEVELOPER NONE ANESTHESIA LOCAL PRE PROCEDURE NOTE THE PATIENT HAS HISTORY OF CHRONIC CERVICAL PAIN. I EVALUATED THE PATIENT AND REVIEWED THE CHART. I WENT OVER THE RISKS, ALTERNATIVES, AND BENEFITS ASSOCIATED WITH THIS PROCEDURE. I DISCUSSED THAT THE USE OF STEROIDS MAY CONTRIBUTE TO IMMUNOSUPPRESSION OF THE PATIENT'S BODY AGAINST INFECTIONS SUCH COVID-19. THE PATIENT IS AWARE OF THE POTENTIAL COMPLICATIONS ASSOCIATED WITH THIS VIRUS, INCLUDING, BUT NOT LIMITED TO, . I DISCUSSED THE USE OF DEXAMETHASONE INSTEAD OF KENALOG; HOWEVER, THE PATIENT WOULD LIKE TO MOVE FORWARD WITH KENALOG. THE PATIENT WOULD LIKE TO PROCEED AND GIVE CONSENT TO PERFORMED THE PROCEDURE. THE PATIENT DENIES UNEXPLAINABLE WEIGHT LOSS, FEVER, CHILLS, OR NEW CHANGES IN URINARY OR BOWEL CONTROL. THE PATIENT IS COVID-19 NEGATIVE DESCRIPTION OF PROCEDURE THE PATIENT WAS BROUGHT TO THE PROCEDURE ROOM AND PLACED IN THE PRONE POSITION. THE CERVICOTHORACIC AREA WAS CLEANED WITH CHLORAPREP SOLUTION AND DRAPED ASEPTICALLY. THE PROCEDURE WAS DONE UNDER STERILE CONDITIONS. A TIMEOUT WAS PERFORMED WHERE LATERALITY AND THE SITE OF THE PROCEDURE WERE CHECKED AND CONFIRMED WITH EVERYONE IN THE ROOM. UNDER FLUOROSCOPIC GUIDANCE, TARGET POINT WAS SELECTED AT THE LEFT AND RIGHT C2-C3, LEFT AND RIGHT C3-C4 AND LEFT AND RIGHT C4-C5 CERVICAL FACET JOINTS. TARGET POINTS WERE SELECTED AFTER LATERAL ROTATION AND TILT OF THE MAGNIFIER OF THE C-ARM. LIDOCAINE 0.5% WAS USED TO NUMB THE SKIN AND THE SUBCUTANEOUS TISSUE BELOW IT. SPINAL NEEDLES, 22-GAUGE, WERE ADVANCED UNDER FLUOROSCOPIC GUIDANCE AND FOLLOWING PATIENT FEEDBACK UNTIL THE TARGETS WERE TOUCHED. THE POSITION OF THE NEEDLES WAS VERIFIED WITH AP AND LATERAL VIEWS. AFTER PROPER POSITION OF THE NEEDLES WAS ACHIEVED, ISOVUE-M DYE 30%, 0.1 ML, WAS INJECTED SHOWING SPREAD OF THE DYE. KENALOG 10 MG WAS INJECTED AT EACH SITE. THEN A SOLUTION OF 6 ML OF BUPIVACAINE 0.125% WAS USED TO FLUSH EACH SITE. THERE WAS NO EVIDENCE OF BLOOD, PARESTHESIA OR CEREBROSPINAL FLUID DURING THE PROCEDURE. THE PATIENT WAS SENT TO THE RECOVERY ROOM. THE PATIENT WAS MOVING THE EXTREMITIES AND DOING WELL. THERE WERE NO COMPLICATIONS DURING THE PROCEDURE. ESTIMATED BLOOD LOSS WAS LESS THAN 5 ML. FLUOROSCOPY TIME WAS 31 SECONDS POST PROCEDURE NOTE THE PATIENT WILL BE SEEN IN A FOLLOW UP IN THE NEXT FEW WEEKS. I AM LOOKING FOR LONG LASTING RELIEF FOR THE PATIENT WITH THIS INTERVENTION. INSTRUCTIONS WERE GIVEN, QUESTIONS WERE ANSWERED, AND THE PATIENT EXPRESSED UNDERSTANDING AND AGREES WITH THE PLAN. THE PATIENT IS AWARE TO STAY HOME FOR THE NEXT WEEK, IF POSSIBLE, DUE TO COVID-19. I, LETICIA MEHTA, DOCUMENTED THE ABOVE INFORMATION ACTING A SCRIBE FOR DR. JOHNSON. I HAVE REVIEWED THE ABOVE DOCUMENT, WRITTEN BY LETICIA MEHTA, MARINE ENGINE DRIVER, AND I VERIFY THAT IT IS ACCURATE PROCEDURE CODES 06831 INJ PARAVERT F JNT C/T 1 LEV, MODIFIERS: 50 [id number] INJ PARAVERT F JNT C/T 2 LEV, MODIFIERS: 50 [id number] INJ PARAVERT F JNT C/T 3 LEV, MODIFIERS: 50 DISPOSITION & COMMUNICATION FOLLOW UP F/UP WITH SUPPLY CHAIN PROJECT MANAGER (REASON: POST CFBT C2-C3-, C3-C4, C4-C5) ELECTRONICALLY SIGNED BY LARON JOHNSON MD, MD ON 07/30/2019 AT 05:35 PM EDT DISCLAIMER : THIS IS A VISIT SUMMARY EXTRACTED FROM THE [employer] CHART. IT IS NOT A COPY OF THE [employer] PROGRESS NOTE. MTDD
== END ==
LOC: M PAIN 13:45
PROVIDERS: ATTEND Anesthesiology
DX: M47.812 Spondylosis without myelopathy or radiculopathy, cervical region (principal); M96.1 Postlaminectomy syndrome, not elsewhere classified
CPT/HCPCS: 64490; 64491; 64492; J3301; Q9967

== ENCOUNTER → 2019-08-25 | Outpatient (CLI) | payer OTHER ==
[~2019-08-25] MED LIST changes: -BUPIVACAINE HCL 0.25% 30ML VIAL As Ordered ONE; -ISOVUE-M 300 61% 15ML VIAL As Ordered ONE; -LIDOCAINE 1% SDV 30ML VIAL As Ordered ONE; -TRIAMCINOLONE ACETONIDE SUSP 40 MG/ML VIAL (J3301) As Ordered ONE
--- NOTE | 2019-08-29 23:57 | ECWPNPC ---
PATIENT NAME: KALEE TOVAR : 1955 GENDER: MALE VISIT DATE: 08/25/2019 DISCHARGE DATE: 08/25/19 1221 VISIT LOCKED DATE TIME: PHYSICIAN: MARTÍN DOUGLAS RESOURCE: MARTÍN DOUGLAS REASON FOR APPOINTMENT 1. POST CFBT HISTORY OF PRESENT ILLNESS GENERAL: HERE FOR POST PROCEDURE FOLLOW-UP. HAD BILATERAL C2-3, C3-4, C4-5 CERVICAL FACET THERAPEUTIC BLOCK ON 07/30/2019. CONTINUES TO BENEFIT FROM THIS TODAY WITH REDUCED PAIN AND IMPROVED MOBILITY. COMPLAINING OF BILATERAL SHOULDER PAIN, WHICH IS CHRONIC. REPORTING INCREASE IN SHOULDER PAIN AFTER MOVING FURNITURE. -. FALL RISK SCREENING: SCREENING :TWO OR MORE FALLS WITHOUT INJURY IN THE PAST YEAR RECENTLY WITH MOVING PAIN SCREENING: PATIENT HAS A COMPLAINT OF ACUTE OR CHRONIC PAIN :YES NECK AREA IS FINE ..THE RESTOF THE BODY IS HURTING FROM MOVING LOCATION OF PAIN:MID BACK INTENSITY OF PAIN (SCALE OF 1 TO 10):3 WHAT DOES YOUR PAIN FEEL LIKE:ACHING, TENDER DURATION:PERIODIC PAIN IS INCREASED BY:ACTIVITIES PAIN IS DECREASED BY:SITTING NURSING NOTE: -. PAIN CENTER INTAKE QUESTIONS: DO YOU HAVE A HISTORY OF MRSA? :NO DO YOU TAKE A BLOOD THINNERS? :NO DO YOU HAVE ANY BLEEDING DISORDERS? :NO ANY NEW NUMBNESS OR WEAKNESS IN YOUR LEGS OR ARMS? :NO ANY PACEMAKER,DEFIBRILLATOR, OR DORSAL COLUMN STIMULATOR? :NO DO YOU HAVE ANY RASHES OR OPEN SORES? :NO ARE YOU ALLERGIC TO IV DYE? :NO ARE YOU DIABETIC? :NO ANY NEW PROBLEMS WITH YOUR MEDICATIONS? :NO HAVE YOU RECEIVED A VACCINE IN THE PAST 30 DAYS? :NO DO YOU PLAN TO RECEIVE A VACCINE IN THE NEXT 21 DAYS? :NO DO YOU NEED ANY PRESCRIPTION? :YES YES PT STATES HE NEEDS REFILLS DO YOU TAKE ANY IMMUNOSUPPRESSIVE MEDICATIONS? :NO IS THERE A CHANCE YOU COULD BE ? :NO ARE YOU BREAST FEEDING? :NO CURRENT MEDICATIONS TAKING TOPROL XL 100 MG TABLET EXTENDED RELEASE 24 HOUR 1 TABLET ORALLY BID TAKING CRESTOR 40 MG TABLET 1 TABLET ORALLY ONCE A DAY TAKING OMEGA 3-6-9 - CAPSULE ORALLY BID TAKING SAW PALMETTO - CAPSULE ORALLY TID TAKING ECOTRIN 325 MG TABLET DELAYED RELEASE 1 TABLET ORALLY ONCE A DAY, NOTES: SUNDAY TAKING VITAMIN D-3 5000 UNIT TABLET ORALLY DAILY TAKING CALCIUM 1200 5432-2908 MG-UNIT TABLET CHEWABLE 1 TABLET WITH A MEAL ORALLY BID TAKING OMEPRAZOLE 20 MG CAPSULE DELAYED RELEASE 1 CAP ORALLY ONCE A DAY TAKING TYLENOL 325 MG TABLET 2 TABLETS NEEDED ORALLY EVERY 6 HRS TAKING METFORMIN HCL 500 MG TABLET 1 TABLET WITH MEALS ORALLY TID TAKING TRENTAL 400 MG TABLET EXTENDED RELEASE 1 TABLET WITH MEALS ORALLY TID TAKING ZOLPIDEM TARTRATE ER 6.25 MG TABLET EXTENDED RELEASE 1 TABLET AT BEDTIME NEEDED ORALLY ONCE A DAY TAKING CLONAZEPAM 1 MG TABLET 1 TABLET ORALLY BID PRN TAKING TRILIPIX 135 MG CAPSULE DELAYED RELEASE 1 CAPSULE ORALLY ONCE A DAY TAKING ZETIA 10 MG TABLET 1 TABLET ORALLY ONCE A DAY TAKING CENTRUM - TABLET 1 CAP ORALLY BID TAKING CO Q 10 200 MG CAPSULE 1 CAPSULE WITH A MEAL ORALLY ONCE A DAY TAKING NEURONTIN 400 MG CAPSULE 4 CAPSULE ORALLY BEFORE BEDTIME TAKING TAMSULOSIN HCL 0.4 MG CAPSULE EXTENDED RELEASE ORALLY TAKING POTASSIUM CITRATE 10 MEQ TABLET ORALLY BID TAKING CELEBREX 200 MG CAPSULE 1 CAPSULE ORALLY FOR PAIN BID DAILY NEEDED MDD2 TAKING SOMA 350 MG TABLET 1 TABLET NEEDED ORALLY FOR SPSMS AND PAIN Q8H PRN MDD3 3 MOS SUPPLY CAT D CHRONIC PAIN TAKING TRAMADOL HCL 50 MG TABLET 1 TABLET NEEDED ORALLY FOR PAIN Q8H PRN PAIN MDD3 3 MOS SUPPLY CAT D CHRONIC PAIN NOT-TAKING B COMPLEX - CAPSULE ORALLY BID NOT-TAKING CYTOMEL 50 MCG TABLET 1 TABLET ON AN EMPTY STOMACH ORALLY ONCE A DAY NOT-TAKING RAMIPRIL 10 MG CAPSULE 1 CAPSULE ORALLY DAILY MEDICATION LIST REVIEWED AND RECONCILED WITH THE PATIENT PAST MEDICAL HISTORY AFIB, ONE EPISODE HYPERTENSION HIGH CHOLESTEROL NIDDM GERD ARTHRITIS HYDRONEPHROSIS - BILATERAL KIDNEY STONES TORN RIGHT ROTATOR CUFF RUPTURED RIGHT BICEP ALLERGIES OXYCODONE HCL: NAUSEA - SIDE EFFECTS LATEX (FOR ALLERGY USE ONLY): RASH - ALLERGY SURGICAL HISTORY C7-T1 FUSION TITANIUM PLATE BILAT ROTATOR CUFF REPAIR 01/2018 BILAT BICEPS RUPTURED WITH SURGICAL ATTEMPT LAPRASCOPIC EXPLORATORY X4 CHOLECYSTECTOMY FAMILY HISTORY NO FAMILY HISTORY DOCUMENTED. HOSPITALIZATION/MAJOR DIAGNOSTIC PROCEDURE BLEEDING ULCER X2 REVIEW OF SYSTEMS CONSTITUTIONAL: ANY RECENT FEVER NO . CHILLS NO . WEIGHT CHANGE OF UNKNOWN REASONS NO . GASTROENTEROLOGY: NEW UNEXPLAINABLE CHANGES IN BOWEL CONTROL NO . CONSTIPATION NO . GENITOURINARY: ANY NEW CHANGE IN BLADDER CONTROL? NO . NEUROLOGY: NEW ONSET DIZZINESS OR NEUROLOGICAL CHANGES NOT MENTIONED NO . NEW NUMBNESS OR PAIN PATTERNS NOT MENTIONED AND PERTINENT TO TODAY'S VISIT NO . CARDIOLOGY: NEW CHEST PRESSURE NO . NEW CHEST PAIN NO . RESPIRATORY: UNEXPLAINABLE COUGH NO . NEW SHORTNESS OF BREATH NO . VITAL SIGNS WT 235.8 LBS, HT 70 IN, BMI 33.83 INDEX, BP 122/67 MM HG, HR 57 /MIN, RR 18 /MIN, TEMP 97.6 F, OXYGEN SAT % 97%, NA INITIALS SC 11:14. EXAMINATION GENERAL EXAMINATION: GENERAL AWAKE,ALERT ,PLEASANT . PSYCH AFFECT NORMAL . LUNGS: LUNG NG ARE CLEAR TO AUSCULTATION BILATERALLY. GOOD MOVEMENT OF AIR . HEART: S1, S2 IN A REGULAR RATE AND RHYTHM. NO SIGNIFICANT MURMURS, RUBS OR GALLOPS NOTED . MUSCULOSKELETAL: MUSCLE STRENGTH TESTING 5/5 BILATERAL UPPER EXTREMITIES , PALPATION: POSITIVE FOR MILD DISCOMFORT RIGHT SHOULDER. ROJM RIGHT ARM LIMITED DUE TO INCREASE IN RIGHT SHOULDER PAIN W ABDUCTION PAST SHOULDER HEIGHT. 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) CHRONIC PRESCRIPTION OPIATE USE - Z79.891 TREATMENT SPONDYLOSIS WITHOUT MYELOPATHY OR RADICULOPATHY, CERVICOTHORACIC REGION REFILL CELEBREX CAPSULE, 200 MG, 1 CAPSULE, ORALLY FOR PAIN, BID DAILY NEEDED MDD2, 90 DAYS, 180, REFILLS 0 REFILL SOMA TABLET, 350 MG, 1 TABLET NEEDED, ORALLY FOR SPSMS AND PAIN, Q8H PRN MDD3 3 MOS SUPPLY CAT D CHRONIC PAIN, 90 DAYS, 270, REFILLS 0 REFILL TRAMADOL HCL TABLET, 50 MG, 1 TABLET NEEDED, ORALLY FOR PAIN, Q8H PRN PAIN MDD3 3 MOS SUPPLY CAT D CHRONIC PAIN, 90 DAYS, 270, REFILLS 0 NOTES: PATIENT WILL CALL TO SCHEDULE A SOONER APPOINTMENT IF PAIN IN SHOULDERS DOES NOT RESOLVE TO CONSIDER INJECTIONS. , ISTOP REGISTRY REVIEWED AND DEMONSTRATES COMPLLIANCE. RECENT URINE TOXICOLOGY REVIEWED. NO UNAUTHORIZED MEDICATIONS. NO ILLICIT SUBSTANCES AND PRESCRIBED MEDICATIONS WERE PRESENT. URINE TOX TODAY , RISKS OF NARCOTIC/OPIOD MEDICATIONS INCLUDES BUT IS NOT LIMITED TO RISK OF DEPENDANCE/DEVELOPMENT OF ADDICTION, MOOD DISTURBANCE AND DEPRESSION, OSTEOPOROSIS, HORMONAL AND LABIDAL CHANGES, RESPIRATORY DEPRESSION AND . PATIENT IS ADVISED NOT TO DRIVE OR DRINK ALCOHOL WHILE ON THESE MEDICATIONS. PROCEDURE CODES FA211 ESTABILISHED PATIENT [facility] CHARGE DISPOSITION & COMMUNICATION FOLLOW UP 3 MONTHS (REASON: NECK PAIN, BILATERAL SHOULDER PAIN) ELECTRONICALLY SIGNED BY ALEXX SIMMONS ON 08/29/2019 AT 08:38 AM EDT DISCLAIMER : THIS IS A VISIT SUMMARY EXTRACTED FROM THE [employer] CHART. IT IS NOT A COPY OF THE [employer] PROGRESS NOTE. MAUREEN
== END ==
LOC: M PAIN 11:15
PROVIDERS: ATTEND Nurse Practitioner Family
DX: M47.813 Spondylosis without myelopathy or radiculopathy, cervicothoracic region (principal); Z79.891 Long term (current) use of opiate analgesic

== ENCOUNTER → 2020-02-16 | Outpatient (CLI) | payer OTHER ==
--- NOTE | 2020-02-18 02:07 | ECWPNPC ---
PATIENT NAME: KALEE TOVAR : 1955 GENDER: MALE VISIT DATE: 02/16/2020 DISCHARGE DATE: 02/16/20 1556 VISIT LOCKED DATE TIME: PHYSICIAN: MARTÍN DOUGLAS RESOURCE: MARTÍN DOUGLAS REASON FOR APPOINTMENT 1. MED MANAGMENT F/U HISTORY OF PRESENT ILLNESS DEPRESSION SCREENING: PHQ-2 (2015 EDITION) LITTLE INTEREST OR PLEASURE IN DOING THINGS?NOT AT ALL FEELING DOWN, DEPRESSED, OR HOPELESS?NOT AT ALL TOTAL SCORE0 GENERAL: HERE FOR FOLLOW-UP OF PERSISTENT NECK PAIN. PAIN IN NECK AREA HAS INCREASED OVER THE PAST FEW MONTHS. PAIN IS AGGRAVATED WITH USE OF HIS ARMS AND WITH CERTAIN SITTING POSITIONS AND DESK WORK. HAS RESPONDED WELL TO TRIGGER POINTS IN THE NECK AND UPPER BACK AND SHOULDER AREA IN THE PAST. FINDS CURRENT MEDICATION SOMEWHAT HELPFUL AT REDUCING PAIN AND KEEPING HIM FUNCTIONAL. DENIES ADVERSE EFFECTS WITH MEDICATION. FORGOT TO BRING IN MEDICATIONS TODAY. REVIEWED CLINIC POLICY AND NEED FOR HIM TO BRING IN HIS MEDICATIONS TO ALL FUTURE APPOINTMENTS IN ORDER FOR REFILLS TO BE COMPLETED. RECENT URINE TOXICOLOGY IS REVIEWED. PATIENT STATES HE TAKES FIORICET PERIODICALLY WELL AMBIEN AT NIGHT FOR SLEEP. THESE WERE NOT DOCUMENTED MEDICATIONS THAT HE WAS TAKING ON A REGULAR BASIS AND THEREFORE URINE TOXICOLOGY WAS LISTED ABNORMAL. RECENT URINE TOXICOLOGY IS WITHIN NORMAL LIMITS. - -. FALL RISK SCREENING: SCREENING :ONE FALL WITH INJURY IN THE PAST YEAR FELL OFF THE ROOF OF THE HOUSE. BRUISED RIBS AND SOUGHT NO TREATMENT. PAIN SCREENING: PATIENT HAS A COMPLAINT OF ACUTE OR CHRONIC PAIN :YES LOCATION OF PAIN:NECK, BOTH SHOULDERS, LOW BACK INTENSITY OF PAIN (SCALE OF 1 TO 10):7 AVERAGE NECK 7 AND LOW BACK 4. WHAT DOES YOUR PAIN FEEL LIKE:ACHING, CONTINOUS, SHARP, STABBING, TENDER DURATION:CONTINOUS, AWAKENS FROM SLEEP PAIN IS INCREASED BY:OTHERS LIFTING, FLEXING NECK, BENDING FORWARD. MOIST HEAT. PAIN IS DECREASED BY:USE OF PAIN MEDICATIONS, OTHERS SOMA TREATMENT/MEDICATIONS USED TO MANAGE PAIN:OTC PAIN RELIEVERS, NSAIDS, OPIOIDS, CORTICOSTEROIDS, PHYSICAL THERAPY, ACCUPUNCTURE NURSING NOTE: - -. PAIN CENTER INTAKE QUESTIONS: DO YOU HAVE A HISTORY OF MRSA? :NO DO YOU TAKE A BLOOD THINNERS? :NO DO YOU HAVE ANY BLEEDING DISORDERS? :NO ANY NEW NUMBNESS OR WEAKNESS IN YOUR LEGS OR ARMS? :NO ANY PACEMAKER,DEFIBRILLATOR, OR DORSAL COLUMN STIMULATOR? :NO DO YOU HAVE ANY RASHES OR OPEN SORES? :NO ARE YOU ALLERGIC TO IV DYE? :NO ARE YOU DIABETIC? :YES ANY NEW PROBLEMS WITH YOUR MEDICATIONS? :NO HAVE YOU RECEIVED A VACCINE IN THE PAST 30 DAYS? :NO DO YOU PLAN TO RECEIVE A VACCINE IN THE NEXT 21 DAYS? :YES COVID VACCINATION. DO YOU NEED ANY PRESCRIPTION? :NO DO YOU TAKE ANY IMMUNOSUPPRESSIVE MEDICATIONS? :YES PREDNISONE 3 DAYS, 5MG PER DAY. LAST DOSE 02/12/20. IS THERE A CHANCE YOU COULD BE ? :NO ARE YOU BREAST FEEDING? :NO CURRENT MEDICATIONS TAKING TOPROL XL 200 MG TABLET EXTENDED RELEASE 1 TABLET ORALLY BID TAKING CRESTOR 40 MG TABLET 1 TABLET ORALLY ONCE A DAY TAKING OMEGA 3-6-9 - CAPSULE ORALLY BID TAKING SAW PALMETTO - CAPSULE ORALLY TID TAKING ECOTRIN 325 MG TABLET DELAYED RELEASE 1 TABLET ORALLY ONCE A DAY, NOTES: SUNDAY TAKING VITAMIN D-3 5000 UNIT TABLET ORALLY DAILY TAKING CALCIUM 1200 8610-3542 MG-UNIT TABLET CHEWABLE 1 TABLET WITH A MEAL ORALLY BID TAKING OMEPRAZOLE 20 MG CAPSULE DELAYED RELEASE 1 CAP ORALLY ONCE A DAY TAKING TYLENOL 325 MG TABLET 2 TABLETS NEEDED ORALLY EVERY 6 HRS TAKING METFORMIN HCL 500 MG TABLET 1 TABLET WITH MEALS ORALLY TID TAKING TRENTAL 400 MG TABLET EXTENDED RELEASE 1 TABLET WITH MEALS ORALLY TID TAKING ZOLPIDEM TARTRATE ER 12.5 MG TABLET EXTENDED RELEASE 1 TABLET AT BEDTIME NEEDED ORALLY ONCE A DAY TAKING TRILIPIX 135 MG CAPSULE DELAYED RELEASE 1 CAPSULE ORALLY ONCE A DAY TAKING ZETIA 10 MG TABLET 1 TABLET ORALLY ONCE A DAY TAKING CENTRUM - TABLET 1 CAP ORALLY BID TAKING CO Q 10 200 MG CAPSULE 1 CAPSULE WITH A MEAL ORALLY BID TAKING NEURONTIN 400 MG CAPSULE 6 CAPSULES ORALLY BEFORE BEDTIME TAKING TAMSULOSIN HCL 0.4 MG CAPSULE EXTENDED RELEASE ORALLY TAKING CELEBREX 200 MG CAPSULE 1 CAPSULE ORALLY FOR PAIN BID DAILY NEEDED MDD2 TAKING SOMA 350 MG TABLET 1 TABLET NEEDED ORALLY FOR SPSMS AND PAIN Q8H PRN MDD3 3 MOS SUPPLY CAT D CHRONIC PAIN TAKING TRAMADOL HCL 50 MG TABLET 1 TABLET NEEDED ORALLY FOR PAIN Q8H PRN PAIN MDD3 3 MOS SUPPLY CAT D CHRONIC PAIN TAKING FIORICET 325-50-40 MG TABLET 1 TABLET NEEDED ORALLY EVERY 4 -6 HRS PRN NOT-TAKING CLONAZEPAM 1 MG TABLET 1 TABLET ORALLY BID PRN NOT-TAKING POTASSIUM CITRATE 10 MEQ TABLET ORALLY BID NOT-TAKING B COMPLEX - CAPSULE ORALLY BID NOT-TAKING CYTOMEL 50 MCG TABLET 1 TABLET ON AN EMPTY STOMACH ORALLY ONCE A DAY NOT-TAKING RAMIPRIL 10 MG CAPSULE 1 CAPSULE ORALLY DAILY MEDICATION LIST REVIEWED AND RECONCILED WITH THE PATIENT PAST MEDICAL HISTORY AFIB, ONE EPISODE HYPERTENSION HIGH CHOLESTEROL NIDDM GERD ARTHRITIS HYDRONEPHROSIS - BILATERAL KIDNEY STONES TORN RIGHT ROTATOR CUFF RUPTURED RIGHT BICEP ALLERGIES OXYCODONE HCL: NAUSEA - SIDE EFFECTS LATEX (FOR ALLERGY USE ONLY): RASH - ALLERGY SURGICAL HISTORY C7-T1 FUSION TITANIUM PLATE BILAT ROTATOR CUFF REPAIR 01/2018 BILAT BICEPS RUPTURED WITH SURGICAL ATTEMPT LAPRASCOPIC EXPLORATORY X4 CHOLECYSTECTOMY FAMILY HISTORY FATHER: MOTHER: ALIVE 84 YRS SIBLINGS: SON(S): UNKNOWN DAUGHTER(S): ALIVE PATERNAL GRAND FATHER: PATERNAL GRAND MOTHER: UNKNOWN MATERNAL GRAND FATHER: , DIAGNOSED WITH HYPERTENSION PATERNAL UNCLE: UNKNOWN PATERNAL AUNT: UNKNOWN MATERNAL UNCLE: MATERNAL AUNT: ALIVE, HYPERTENSION 3DAUGHTER(S) - HEALTHY. SOCIAL HISTORY GENERAL: TOBACCO USE ARE YOU A: NONSMOKER. LATEX QUESTIONNAIRE LATEX ALLERGY : HAVE YOU EVER DEVELOPED ANY TYPE OF REACTION AFTER HANDLING LATEX PRODUCTS SUCH RUBBER GLOVES, CONDOMS, DIAPHRAGMS, BALLOONS, SOCKS, OR UNDERWEAR?YES - PLEASE INDICATE :RUBBER GLOVES LATEX ALLERGY : HAVE YOU EVER DEVELOPED ANY TYPE OF REACTION DURING OR AFTER DENTAL APPOINTMENT, VAGINAL/RECTAL EXAMINATION, SURGICAL PROCEDURE, OR ANY OTHER EXPOSURE?NO LATEX RISK : HAVE YOU EVER HAD ANY DIFFICULTY BREATHING OR HIVES AFTER EATING OR HANDLING ANY FRUITS, OR VEGETABLES; SUCH KIWI, BANANAS, STONE FRUITS, OR CHESTNUTSNO LATEX RISK : DO YOU HAVE A PREVIOUS PERSONAL HISTORY OF MORE THAN NINE SURGERIES, SPINA BIFIDA, OR REPEATED CATHERIZATIONS? YES - PLEASE INDICATE : > 9 SURGERIES LATEX RISK : ARE YOU FREQUENTLY EXPOSED TO LATEX PRODUCTS IN YOUR OCCUPATION?YES DATE ASKED : 02/15/2019 LUNG CANCER SCREENING SMOKING STATUS:NON SMOKER ALCOHOL SCREENING DID YOU HAVE A DRINK CONTAINING ALCOHOL IN THE PAST YEAR?NO POINTS0 INTERPRETATIONNEGATIVE RECREATIONAL DRUG USE DRUG USE?NO CAFFEINE CAFFEINE USE?YES HOW OFTEN AND HOW MUCH? 2 CUPS COFFEE/DAY TAOIST [id number] AMISH LANGUAGE LANGUAGES SPOKEN:BOTH LUXEMBOURGISH AND BURMESE EDUCATION LEVEL OF EDUCATION:PROFESSIONAL SCHOOLS/MASTERS/PHD LEARNING BARRIERS / SPECIAL NEEDS CHANGE FROM LAST VISIT?NO BARRIERS TO LEARNING?NO HEARING IMPAIRED?NO VISION IMPAIRED?YES :CORRECTIVE LENSES COGNITIVELY IMPAIRED?NO READINESS TO LEARN?YES LEARNING PREFERENCES?YES :BOOKLETS, HANDOUTS LEARNING CAPABILITIES PRESENT?YES EMOTIONAL BARRIERS?NO SPECIAL DEVICES?NO GLASS BULB SILVERER NEEDED?NO DOMESTIC VIOLENCE DO YOU FEEL SAFE IN YOUR ENVIRONMENT?YES OCCUPATION: HEALTH CARE, DOCTOR. DIET: NO CONCENTRATED SWEETS., CARBOHYDRATE CONTROLLED. PAIN CLINIC PFS, CLERGY, PUBLIC HEALTH REFERRALS PFS REFERRAL NEEDED?NO CLERGY REFERRAL NEEDED?NO PUBLIC HEALTH REFERRAL NEEDED?NO WAS THE PROVIDER NOTIFIED OF ANY PERTINENT INFO?YES HAS THE PATIENT BEEN EDUCATED REGARDING HIS/HER PLAN OF CARE?YES HAS THE PATIENT BEEN EDUCATED REGARDING PAIN, THE RISK FOR PAIN, THE IMPORTANCE OF EFFECTIVE PAIN MANAGEMENT, AND THE PAIN ASSESSMENT PROCESS?YES ADVANCE DIRECTIVE ADVANCE DIRECTIVE DISCUSSED WITH PATIENT:YES PT REPORTS HIS IS HIS HCP. SALLIE VELAZQUEZ [phone], 02/16/20. HOSPITALIZATION/MAJOR DIAGNOSTIC PROCEDURE BLEEDING ULCER X2 REVIEW OF SYSTEMS CONSTITUTIONAL: ANY RECENT FEVER NO . CHILLS NO . WEIGHT CHANGE OF UNKNOWN REASONS NO . GASTROENTEROLOGY: NEW UNEXPLAINABLE CHANGES IN BOWEL CONTROL NO . CONSTIPATION NO . GENITOURINARY: ANY NEW CHANGE IN BLADDER CONTROL? NO . NEUROLOGY: NEW ONSET DIZZINESS OR NEUROLOGICAL CHANGES NOT MENTIONED NO . NEW NUMBNESS OR PAIN PATTERNS NOT MENTIONED AND PERTINENT TO TODAY'S VISIT NO . CARDIOLOGY: NEW CHEST PRESSURE NO . NEW CHEST PAIN NO . RESPIRATORY: UNEXPLAINABLE COUGH NO . NEW SHORTNESS OF BREATH NO . VITAL SIGNS WT 238.6 LBS, HT 70 IN, BMI 34.23 INDEX, BP 131/56 MM HG, HR 70 /MIN, RR 18 /MIN, TEMP 95.0 F, OXYGEN SAT % 97%, NA INITIALS AW 1451, REVIEWED BY: SHIMA. EXAMINATION GENERAL EXAMINATION: GENERAL AWAKE,ALERT ,PLEAASANT . PSYCH AFFECT NORMAL . LUNGS: LUNG NG ARE CLEAR TO AUSCULTATION BILATERALLY. GOOD MOVEMENT OF AIR . HEART: S1, S2 IN A REGULAR RATE AND RHYTHM. NO SIGNIFICANT MURMURS, RUBS OR GALLOPS NOTED . MUSCULOSKELETAL:TRIGGER POINTS ELICITED OVER UPPER BACK AND SHOULDER AREA . CERVICAL: TRIGGER POINTS: CERVICAL AND TRAPEZIUS BILAT..PAIN IS AGGREVATED WITH ROJM NECK. ASSESSMENTS MYALGIA, OTHER SITE - M79.18 (PRIMARY) CERVICAL POST-LAMINECTOMY SYNDROME - M96.1 TREATMENT MYALGIA, OTHER SITE CONTINUE CELEBREX CAPSULE, 200 MG, 1 CAPSULE, ORALLY FOR PAIN, BID DAILY NEEDED MDD2 CONTINUE SOMA TABLET, 350 MG, 1 TABLET NEEDED, ORALLY FOR SPSMS AND PAIN, Q8H PRN MDD3 3 MOS SUPPLY CAT D CHRONIC PAIN CONTINUE TRAMADOL HCL TABLET, 50 MG, 1 TABLET NEEDED, ORALLY FOR PAIN, Q8H PRN PAIN MDD3 3 MOS SUPPLY CAT D CHRONIC PAIN NOTES: TRIGGER POINT INJECTIONS BILATERAL NECK, BILATERAL UPPER BACK, BILATERAL SHOULDERS NARCOTIC AGREEMENT IS REVIEWED AND SIGNED. PATIENT IS ADVISED TO BRING HIS PAIN MEDICATIONS TO ALL FUTURE APPOINTMENTS. , ISTOP REGISTRY REVIEWED AND DEMONSTRATES COMPLLIANCE. , RISKS OF NARCOTIC/OPIOD MEDICATIONS INCLUDES BUT IS NOT LIMITED TO RISK OF DEPENDANCE/DEVELOPMENT OF ADDICTION, MOOD DISTURBANCE AND DEPRESSION, OSTEOPOROSIS, HORMONAL AND LABIDAL CHANGES, RESPIRATORY DEPRESSION AND . PATIENT IS ADVISED NOT TO DRIVE OR DRINK ALCOHOL WHILE ON THESE MEDICATIONS. PROCEDURE CODES FA211 ESTABILISHED PATIENT [facility] CHARGE DISPOSITION & COMMUNICATION FOLLOW UP POSTPROCEDURE/MEDICATION MANAGEMENT/URINE TOXICOLOGY (REASON: TRIGGER POINT INJECTIONS BILATERAL NECK, BILATERAL UPPER BACK, BILATERAL SHOULDERS) ELECTRONICALLY SIGNED BY ALEXX SIMMONS ON 02/17/2020 AT 03:53 PM EST DISCLAIMER : THIS IS A VISIT SUMMARY EXTRACTED FROM THE [employer] CHART. IT IS NOT A COPY OF THE [employer] PROGRESS NOTE. MAUREEN
== END ==
LOC: M PAIN 15:00
PROVIDERS: ATTEND Nurse Practitioner Family
DX: M79.18 Myalgia, other site (principal); M96.1 Postlaminectomy syndrome, not elsewhere classified; E11.9 Type 2 diabetes mellitus without complications; K21.9 Gastro-esophageal reflux disease without esophagitis; Z88.5 Allergy status to narcotic agent; Z91.040 Latex allergy status; Z79.84 Long term (current) use of oral hypoglycemic drugs; Z79.899 Other long term (current) drug therapy

== ENCOUNTER → 2020-03-07 | Outpatient (CLI) | payer OTHER | LOC: M LABSMTC 09:16 | PROVIDERS: ATTEND Anesthesiology | DX: Z01.812 Encounter for preprocedural laboratory examination (principal); Z20.822 Contact with and (suspected) exposure to COVID-19 ==

== ENCOUNTER → 2020-03-12 | Outpatient (CLI) | payer OTHER ==
[~2020-03-12] MED LIST changes: +BUPIVACAINE HCL 0.25% 10ML VIAL As Ordered ONE; +BUPIVACAINE HCL 0.25% 30ML VIAL As Ordered ONE
--- NOTE | 2020-03-17 03:18 | ECWPNPC ---
PATIENT NAME: KALEE TOVAR : 1955 GENDER: MALE VISIT DATE: 03/12/2020 DISCHARGE DATE: 03/12/20 1605 VISIT LOCKED DATE TIME: PHYSICIAN: LARON JOHNSON MD RESOURCE: LARON JOHNSON MD REASON FOR APPOINTMENT 1. TRIGGER POINT INJECTIONS HISTORY OF PRESENT ILLNESS GENERAL: -. FALL RISK SCREENING: SCREENING :NO FALLS REPORTED IN THE LAST YEAR PAIN SCREENING: PATIENT HAS A COMPLAINT OF ACUTE OR CHRONIC PAIN :YES LOCATION OF PAIN:NECK, LEFT SHOULDER, RIGHT SHOULDER, HEAD INTENSITY OF PAIN (SCALE OF 1 TO 10):8 WHAT DOES YOUR PAIN FEEL LIKE:STABBING, BURNING PAIN IS INCREASED BY:ACTIVITIES PAIN IS DECREASED BY:OTHERS COLD PACKS, BIO WAVE PLAN/GOALS/TREATMENT/INTERVENTION/FOLLOW UP:SEE PLAN PAIN CENTER INTAKE QUESTIONS: DO YOU HAVE A HISTORY OF MRSA? :NO DO YOU TAKE A BLOOD THINNERS? :NO DO YOU HAVE ANY BLEEDING DISORDERS? :NO ANY NEW NUMBNESS OR WEAKNESS IN YOUR LEGS OR ARMS? :NO ANY PACEMAKER,DEFIBRILLATOR, OR DORSAL COLUMN STIMULATOR? :NO DO YOU HAVE ANY RASHES OR OPEN SORES? :NO ARE YOU ALLERGIC TO IV DYE? :NO ARE YOU DIABETIC? :YES MANAGED WITH ORAL MEDS ANY NEW PROBLEMS WITH YOUR MEDICATIONS? :NO HAVE YOU RECEIVED A VACCINE IN THE PAST 30 DAYS? :YES IF SO WHAT VACCINE AND WHEN? 02/14/[address] JOHNSON MADE AWARE & DISCUSSED WITH PATIENT. DO YOU PLAN TO RECEIVE A VACCINE IN THE NEXT 21 DAYS? :NO PLANS ON WAITING ATLEAST 2 WEEKS FOR 2ND DOSE OF COVID VACCINE DO YOU TAKE ANY IMMUNOSUPPRESSIVE MEDICATIONS? :NO ANY HISTORY OF SEIZURES? :NO ANY HISTORY OF CARDIAC ISSUES OR EVENTS? :NO DO YOU HAVE SLEEP APNEA? :NO ANY RECENT HEAD INJURY? :NO DO YOU HAVE ANY NEW INFECTIONS? :NO IS THERE A CHANCE YOU COULD BE ? :NO ARE YOU BREAST FEEDING? :NO WHEN DID YOU LAST EAT? : 0700 WHEN DID YOU LAST DRINK? : 1130 WHAT DID YOU LAST DRINK? : WATER NAME OF PERSON DRIVING YOU HOME? : SALLIE DO YOU HAVE ANY OTHER QUESTIONS OR CONCERNS? : NO CURRENT MEDICATIONS TAKING TOPROL XL 100 MG TABLET EXTENDED RELEASE 24 HOUR 1 TABLET ORALLY BID, NOTES: 0700 TAKING CRESTOR 40 MG TABLET 1 TABLET ORALLY ONCE A DAY TAKING OMEGA 3-6-9 - CAPSULE ORALLY BID TAKING SAW PALMETTO - CAPSULE ORALLY TID TAKING ECOTRIN 325 MG TABLET DELAYED RELEASE 1 TABLET ORALLY ONCE A DAY TAKING VITAMIN D-3 25 MCG (1000 UT) CAPSULE 2 CAPSULES ORALLY DAILY TAKING CALCIUM 1200 3394-6251 MG-UNIT TABLET CHEWABLE 1 TABLET WITH A MEAL ORALLY BID TAKING OMEPRAZOLE 20 MG CAPSULE DELAYED RELEASE 1 CAP ORALLY ONCE A DAY TAKING TYLENOL 325 MG TABLET 2 TABLETS NEEDED ORALLY EVERY 6 HRS TAKING METFORMIN HCL 500 MG TABLET 1 TABLET WITH MEALS ORALLY TID, NOTES: 03/11/202029 TAKING TRENTAL 400 MG TABLET EXTENDED RELEASE 1 TABLET WITH MEALS ORALLY TID, NOTES: 03/11/202029 TAKING ZOLPIDEM TARTRATE ER 12.5 MG TABLET EXTENDED RELEASE 1 TABLET AT BEDTIME NEEDED ORALLY ONCE A DAY TAKING TRILIPIX 135 MG CAPSULE DELAYED RELEASE 1 CAPSULE ORALLY ONCE A DAY TAKING ZETIA 10 MG TABLET 1 TABLET ORALLY ONCE A DAY TAKING CENTRUM - TABLET 1 CAP ORALLY BID TAKING CO Q 10 200 MG CAPSULE 1 CAPSULE WITH A MEAL ORALLY BID TAKING NEURONTIN 400 MG CAPSULE 6 CAPSULES ORALLY BEFORE BEDTIME TAKING TAMSULOSIN HCL 0.4 MG CAPSULE EXTENDED RELEASE 1 CAPSULE ORALLY ONCE A DAY TAKING FIORICET 325-50-40 MG TABLET 1 TABLET NEEDED ORALLY EVERY 4 -6 HRS PRN TAKING CELEBREX 200 MG CAPSULE 1 CAPSULE ORALLY FOR PAIN BID DAILY NEEDED MDD2 TAKING SOMA 350 MG TABLET 1 TABLET NEEDED ORALLY FOR SPSMS AND PAIN Q8H PRN MDD3 3 MOS SUPPLY CAT D CHRONIC PAIN TAKING TRAMADOL HCL 50 MG TABLET 1 TABLET NEEDED ORALLY FOR PAIN Q8H PRN PAIN MDD3 3 MOS SUPPLY CAT D CHRONIC PAIN, NOTES: 03/11/202029 NOT-TAKING CLONAZEPAM 1 MG TABLET 1 TABLET ORALLY BID PRN NOT-TAKING POTASSIUM CITRATE 10 MEQ TABLET ORALLY BID NOT-TAKING B COMPLEX - CAPSULE ORALLY BID NOT-TAKING CYTOMEL 50 MCG TABLET 1 TABLET ON AN EMPTY STOMACH ORALLY ONCE A DAY NOT-TAKING RAMIPRIL 10 MG CAPSULE 1 CAPSULE ORALLY DAILY MEDICATION LIST REVIEWED AND RECONCILED WITH THE PATIENT PAST MEDICAL HISTORY AFIB, ONE EPISODE HYPERTENSION HIGH CHOLESTEROL NIDDM GERD ARTHRITIS HYDRONEPHROSIS - BILATERAL KIDNEY STONES TORN RIGHT ROTATOR CUFF RUPTURED RIGHT BICEP ALLERGIES OXYCODONE HCL: NAUSEA - SIDE EFFECTS LATEX (FOR ALLERGY USE ONLY): RASH - ALLERGY SOCIAL HISTORY GENERAL: TOBACCO USE ARE YOU A: NONSMOKER. LATEX QUESTIONNAIRE LATEX ALLERGY : HAVE YOU EVER DEVELOPED ANY TYPE OF REACTION AFTER HANDLING LATEX PRODUCTS SUCH RUBBER GLOVES, CONDOMS, DIAPHRAGMS, BALLOONS, SOCKS, OR UNDERWEAR?YES LATEX ALLERGY : HAVE YOU EVER DEVELOPED ANY TYPE OF REACTION DURING OR AFTER DENTAL APPOINTMENT, VAGINAL/RECTAL EXAMINATION, SURGICAL PROCEDURE, OR ANY OTHER EXPOSURE?NO - PLEASE INDICATE :RUBBER GLOVES DATE ASKED : 02/15/2019 LATEX RISK : HAVE YOU EVER HAD ANY DIFFICULTY BREATHING OR HIVES AFTER EATING OR HANDLING ANY FRUITS, OR VEGETABLES; SUCH KIWI, BANANAS, STONE FRUITS, OR CHESTNUTSNO LATEX RISK : DO YOU HAVE A PREVIOUS PERSONAL HISTORY OF MORE THAN NINE SURGERIES, SPINA BIFIDA, OR REPEATED CATHERIZATIONS? YES - PLEASE INDICATE : > 9 SURGERIES LATEX RISK : ARE YOU FREQUENTLY EXPOSED TO LATEX PRODUCTS IN YOUR OCCUPATION?YES LUNG CANCER SCREENING SMOKING STATUS:NON SMOKER ALCOHOL SCREENING DID YOU HAVE A DRINK CONTAINING ALCOHOL IN THE PAST YEAR?NO POINTS0 INTERPRETATIONNEGATIVE RECREATIONAL DRUG USE DRUG USE?NO CAFFEINE CAFFEINE USE?YES HOW OFTEN AND HOW MUCH? 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 - PFS REFERRAL NEEDED?NO CLERGY REFERRAL NEEDED?NO PUBLIC HEALTH REFERRAL NEEDED?NO WAS THE PROVIDER NOTIFIED OF ANY PERTINENT INFO?YES HAS THE PATIENT BEEN EDUCATED REGARDING HIS/HER PLAN OF CARE?YES HAS THE PATIENT BEEN EDUCATED REGARDING PAIN, THE RISK FOR PAIN, THE IMPORTANCE OF EFFECTIVE PAIN MANAGEMENT, AND THE PAIN ASSESSMENT PROCESS?YES ADVANCE DIRECTIVE ADVANCE DIRECTIVE DISCUSSED WITH PATIENT:YES PT REPORTS HIS IS HIS HCP. SALLIE CAMARENAGO [phone], 02/16/20. VITAL SIGNS WT 238 LBS, HT 70 IN, BMI 34.15 INDEX, BP 133/63 MM HG, HR 54 /MIN, RR 18 /MIN, TEMP 97.8 F, OXYGEN SAT % 96%, BLOOD GLUCOSE LEVEL FSBS: 84, SAFE IN ENV? (Y/N) YES, NA INITIALS SC 14:54, REVIEWED BY: APA. ROME RN. EXAMINATION GENERAL EXAMINATION: THE PATIENT IS ALERT, ORIENTED TIMES THREE AND COOPERATIVE. LUNGS ARE CLEAR TO AUSCULTATION. HEART SHOWS REGULAR RHYTHM, NO MURMURS AND NO GALLOPS. ASSESSMENTS MYALGIA - M79.1 (PRIMARY) TREATMENT MYALGIA COMPLETION OF PROCEDURAL VISIT WHEN MEETS CRITERIAPEGETACHEW SAEZIL R 03/12/2020 4:05:05 PM > CRITERIA MET OTHERS NOTES: 03/11/20 1643 PAT COMPLETED. ROLL PLUGGER MACHINE OPERATOR DID NOT ASK VACCINATION STATUS. rAiadna JORGENSEN RN BSN. PROCEDURES PAIN NURSING RECORD PROCEDURE IN ROOM 1450, PHYSICIAN IN ROOM 1540, START 1546, FINISH 1550, PHYSICIAN OUT OF ROOM 1551, OUT OF ROOM 1605, ECG N/A, PATIENT SHIELDED N/A, SAFETY STRAP N/A, PREP ALCOHOL DR. JOHNSON, DRESSING TEGADERM Rio PETER RN LOC: CHANNING PETERGAIL R 03/12/2020 3:48:29 PM > 1. ALERT, ORIENTED RESP: CHANNING PETERGAIL R 03/12/2020 3:48:31 PM > 1. REGULAR, NO DYSPNEA COLOR: ROMEGLENN R 03/12/2020 3:48:34 PM > 1. PINK SKIN: CHANNING PETERGAIL R 03/12/2020 3:48:38 PM > 1. WARM, DRY POSITION: GLENN PETER R 03/12/2020 3:48:41 PM > 5. SITTING VITALS: CHANNING PETERGAIL R 03/12/2020 4:04:31 PM > 138/67, 54, 18, 98% COMPLETION OF PROCEDURE APPOINTMENT: POST PAIN 0, DRESSING SITE DRY AND INTACT, IV N/A, GAIT STEADY, TEACHING COMPLETED, PATIENT ACKNOWLEDGES UNDERSTANDING YES, PROCEDURE APPOINTMENT COMPLETED AT 1605 BY: Rio PETER RN PN TRIGGER POINT INJECTION NO STEROIDS PRE PROCEDURE DIAGNOSIS 1. MYALGIA 2. PAIN AT BILATERAL NECK AREA AND BILATERAL SHOULDER AREA POST PROCEDURE DIAGNOSIS 1. MYALGIA 2. PAIN AT BILATERAL NECK AREA AND BILATERAL SHOULDER AREA PROCEDURE TRIGGER POINT INJECTION AT BILATERAL NECK AREA AND BILATERAL SHOULDER AREA SURGEON DR. LARON JOHNSON POLICE GUARD NONE ANESTHESIA LOCAL PRE PROCEDURE NOTE THE PATIENT WITH HISTORY OF CHRONIC PAIN AT RIGHT AND LEFT NECK AREA AND RIGHT AND LEFT SHOULDER AREA. I EVALUATED THE PATIENT AND REVIEWED THE CHART. THERE IS EVIDENCE OF BANDS OF TISSUE WITH RESTRICTION OF MOVEMENT AND PRESENCE OF TRIGGER POINT AT THE RIGHT AND LEFT NECK AREA AND RIGHT AND LEFT SHOULDER AREA. I WENT OVER THE RISKS, ALTERNATIVES, AND BENEFITS ASSOCIATED WITH THIS PROCEDURE. THE PATIENT WOULD LIKE TO PROCEED AND GAVE CONSENT TO PERFORM THE PROCEDURE. THE PATIENT DENIES UNEXPLAINABLE WEIGHT LOSS, FEVER, CHILLS, OR NEW CHANGES IN URINARY OR BOWEL CONTROL. THE PATIENT IS COVID-19 NEGATIVE DESCRIPTION OF PROCEDURE THE PATIENT WAS BROUGHT TO THE PROCEDURE ROOM AND PLACED IN THE SITTING POSITION. THE AREA WAS CLEANED WITH ALCOHOL. THE PROCEDURE WAS DONE USING ASEPTIC STERILE TECHNIQUES. A TIMEOUT WAS PERFORMED WHERE THE CONSENTED SITE WAS VERIFIED WITH EVERYONE IN THE ROOM. USING A 25-GAUGE NEEDLE, TRIGGER POINTS WERE INJECTED INTO THE RIGHT AND LEFT NECK AREA AND RIGHT AND LEFT SHOULDER AREA WITH A TOTAL OF 40 ML OF BUPIVACAINE 0.25%. AGREED WITH THE PATIENT THE PROCEDURE WAS DONE WITHOUT STEROIDS. THERE WAS NO EVIDENCE OF BLOOD, PARESTHESIA OR CEREBROSPINAL FLUID DURING THE PROCEDURE. THE PATIENT WAS SENT TO THE RECOVERY ROOM. THE PATIENT WAS MOVING THE EXTREMITIES AND DOING WELL. THERE WAS NO COMPLICATION DURING THE PROCEDURE. EBL LESS THAN 5 ML. POST PROCEDURE NOTE THE PROCEDURE DONE WAS DISCUSSED WITH THE PATIENT. THE PATIENT WILL BE SEEN IN A FOLLOW UP IN THE NEXT FEW WEEKS. I AM LOOKING FOR LONG LASTING PAIN RELIEF FOR THE PATIENT WITH THIS INTERVENTION. INSTRUCTIONS WERE GIVEN, QUESTIONS WERE ANSWERED, AND THE PATIENT EXPRESSED UNDERSTANDING AND AGREES WITH THE PLAN. I, LETICIA MEHTA, DOCUMENTED THE ABOVE INFORMATION ACTING A SCRIBE FOR DR. JOHNSON. I HAVE REVIEWED THE ABOVE DOCUMENT, WRITTEN BY LETICIA MEHTA, LICENSED MENTAL HEALTH COUNSELOR, AND I VERIFY THAT IT IS ACCURATE PROCEDURE CODES 19053 INJECT TRIGGER POINTS 3/> DISPOSITION & COMMUNICATION FOLLOW UP FOLLOW UP WITH INFORMATION ENGINEER (REASON: POST TRIGGER POINT INJECTIONS BILATERAL NECK AND BILATERAL SHOULDER) ELECTRONICALLY SIGNED BY LARON JOHNSON MD, MD ON 03/16/2020 AT 12:42 PM EST DISCLAIMER : THIS IS A VISIT SUMMARY EXTRACTED FROM THE [employer] CHART. IT IS NOT A COPY OF THE [employer] PROGRESS NOTE. MAUREEN
== END ==
LOC: M PAIN 15:15
PROVIDERS: ATTEND Anesthesiology
DX: M79.18 Myalgia, other site (principal); E11.9 Type 2 diabetes mellitus without complications; K21.9 Gastro-esophageal reflux disease without esophagitis; Z88.5 Allergy status to narcotic agent; Z91.040 Latex allergy status; Z79.84 Long term (current) use of oral hypoglycemic drugs; Z79.899 Other long term (current) drug therapy

== ENCOUNTER → 2020-04-09 | Outpatient (CLI) | payer OTHER ==
[~2020-04-09] MED LIST changes: -BUPIVACAINE HCL 0.25% 10ML VIAL As Ordered ONE; -BUPIVACAINE HCL 0.25% 30ML VIAL As Ordered ONE
--- NOTE | 2020-04-18 23:40 | ECWPNPC ---
PATIENT NAME: KALEE TOVAR : 1955 GENDER: MALE VISIT DATE: 04/09/2020 DISCHARGE DATE: 04/09/20 154 VISIT LOCKED DATE TIME: PHYSICIAN: MARTÍN DOUGLAS RESOURCE: MARTÍN DOUGLAS REASON FOR APPOINTMENT 1. POST TRIGGER POINT INJECTIONS BILATERAL NECK AND BILATERAL SHOULDER HISTORY OF PRESENT ILLNESS GENERAL: HERE FOR POST PROCEDURE F/U..REPORTING NO IMPROVEMENT POST PROCEDURE.HE HAD INJECTIONS WITHOUT STEROID MEDICATION.DISCUSSED TREATMENT PLAN.IT SHOULD BE NOTED PATIENT BRINGS IN HIS MEDICATION WHICH IS APPROPRIATE FOR WHAT WAS DISPENSED.-. FALL RISK SCREENING: SCREENING : NO FALLS REPORTED IN THE LAST YEAR. PAIN SCREENING: PATIENT HAS A COMPLAINT OF ACUTE OR CHRONIC PAIN :YES LOCATION OF PAIN:NECK, BOTH SHOULDERS INTENSITY OF PAIN (SCALE OF 1 TO 10):6 WHAT DOES YOUR PAIN FEEL LIKE:ACHING DURATION:INTERMITTENT PAIN IS INCREASED BY:ACTIVITIES PAIN IS DECREASED BY:USE OF PAIN MEDICATIONS NURSING NOTE: -. PAIN CENTER INTAKE QUESTIONS: DO YOU HAVE A HISTORY OF MRSA? :NO DO YOU TAKE A BLOOD THINNERS? :NO DO YOU HAVE ANY BLEEDING DISORDERS? :NO ANY NEW NUMBNESS OR WEAKNESS IN YOUR LEGS OR ARMS? :NO ANY PACEMAKER,DEFIBRILLATOR, OR DORSAL COLUMN STIMULATOR? :NO DO YOU HAVE ANY RASHES OR OPEN SORES? :NO ARE YOU ALLERGIC TO IV DYE? :NO ARE YOU DIABETIC? :YES ANY NEW PROBLEMS WITH YOUR MEDICATIONS? :NO HAVE YOU RECEIVED A VACCINE IN THE PAST 30 DAYS? :YES DO YOU PLAN TO RECEIVE A VACCINE IN THE NEXT 21 DAYS? :NO DO YOU NEED ANY PRESCRIPTION? :NO DO YOU TAKE ANY IMMUNOSUPPRESSIVE MEDICATIONS? :YES PREDNISONE 3 DAYS, 5MG PER DAY. LAST DOSE 02/12/20. IS THERE A CHANCE YOU COULD BE ? :NO ARE YOU BREAST FEEDING? :NO CURRENT MEDICATIONS TAKING TOPROL XL 100 MG TABLET EXTENDED RELEASE 24 HOUR 1 TABLET ORALLY BID TAKING CRESTOR 40 MG TABLET 1 TABLET ORALLY ONCE A DAY TAKING OMEGA 3-6-9 - CAPSULE ORALLY BID TAKING SAW PALMETTO - CAPSULE ORALLY TID TAKING ECOTRIN 325 MG TABLET DELAYED RELEASE 1 TABLET ORALLY ONCE A DAY TAKING VITAMIN D-3 25 MCG (1000 UT) CAPSULE 2 CAPSULES ORALLY DAILY TAKING CALCIUM 1200 5163-2895 MG-UNIT TABLET CHEWABLE 1 TABLET WITH A MEAL ORALLY BID TAKING OMEPRAZOLE 20 MG CAPSULE DELAYED RELEASE 1 CAP ORALLY ONCE A DAY TAKING TYLENOL 325 MG TABLET 2 TABLETS NEEDED ORALLY EVERY 6 HRS TAKING METFORMIN HCL 500 MG TABLET 1 TABLET WITH MEALS ORALLY TID, NOTES: 03/11/202029 TAKING TRENTAL 400 MG TABLET EXTENDED RELEASE 1 TABLET WITH MEALS ORALLY TID, NOTES: 03/11/202029 TAKING ZOLPIDEM TARTRATE ER 12.5 MG TABLET EXTENDED RELEASE 1 TABLET AT BEDTIME NEEDED ORALLY ONCE A DAY TAKING TRILIPIX 135 MG CAPSULE DELAYED RELEASE 1 CAPSULE ORALLY ONCE A DAY TAKING ZETIA 10 MG TABLET 1 TABLET ORALLY ONCE A DAY TAKING CENTRUM - TABLET 1 CAP ORALLY BID TAKING CO Q 10 200 MG CAPSULE 1 CAPSULE WITH A MEAL ORALLY BID TAKING NEURONTIN 400 MG CAPSULE 6 CAPSULES ORALLY BEFORE BEDTIME TAKING TAMSULOSIN HCL 0.4 MG CAPSULE EXTENDED RELEASE 1 CAPSULE ORALLY ONCE A DAY TAKING FIORICET 325-50-40 MG TABLET 1 TABLET NEEDED ORALLY EVERY 4 -6 HRS PRN TAKING CELEBREX 200 MG CAPSULE 1 CAPSULE ORALLY FOR PAIN BID DAILY NEEDED MDD2 TAKING SOMA 350 MG TABLET 1 TABLET NEEDED ORALLY FOR SPSMS AND PAIN Q8H PRN MDD3 3 MOS SUPPLY CAT D CHRONIC PAIN TAKING TRAMADOL HCL 50 MG TABLET 1 TABLET NEEDED ORALLY FOR PAIN Q8H PRN PAIN MDD3 3 MOS SUPPLY CAT D CHRONIC PAIN TAKING RAMIPRIL 2.5 MG CAPSULE 1 CAPSULE ORALLY ONCE A DAY NOT-TAKING CLONAZEPAM 1 MG TABLET 1 TABLET ORALLY BID PRN NOT-TAKING POTASSIUM CITRATE 10 MEQ TABLET ORALLY BID NOT-TAKING B COMPLEX - CAPSULE ORALLY BID NOT-TAKING CYTOMEL 50 MCG TABLET 1 TABLET ON AN EMPTY STOMACH ORALLY ONCE A DAY NOT-TAKING RAMIPRIL 10 MG CAPSULE 1 CAPSULE ORALLY DAILY MEDICATION LIST REVIEWED AND RECONCILED WITH THE PATIENT PAST MEDICAL HISTORY AFIB, ONE EPISODE HYPERTENSION HIGH CHOLESTEROL NIDDM GERD ARTHRITIS HYDRONEPHROSIS - BILATERAL KIDNEY STONES TORN RIGHT ROTATOR CUFF RUPTURED RIGHT BICEP ALLERGIES OXYCODONE HCL: NAUSEA - SIDE EFFECTS LATEX (FOR ALLERGY USE ONLY): RASH - ALLERGY SOCIAL HISTORY GENERAL: TOBACCO USE ARE YOU A: NONSMOKER. LATEX QUESTIONNAIRE LATEX ALLERGY : HAVE YOU EVER DEVELOPED ANY TYPE OF REACTION AFTER HANDLING LATEX PRODUCTS SUCH RUBBER GLOVES, CONDOMS, DIAPHRAGMS, BALLOONS, SOCKS, OR UNDERWEAR?YES - PLEASE INDICATE :RUBBER GLOVES LATEX ALLERGY : HAVE YOU EVER DEVELOPED ANY TYPE OF REACTION DURING OR AFTER DENTAL APPOINTMENT, VAGINAL/RECTAL EXAMINATION, SURGICAL PROCEDURE, OR ANY OTHER EXPOSURE?NO LATEX RISK : HAVE YOU EVER HAD ANY DIFFICULTY BREATHING OR HIVES AFTER EATING OR HANDLING ANY FRUITS, OR VEGETABLES; SUCH KIWI, BANANAS, STONE FRUITS, OR CHESTNUTSNO LATEX RISK : DO YOU HAVE A PREVIOUS PERSONAL HISTORY OF MORE THAN NINE SURGERIES, SPINA BIFIDA, OR REPEATED CATHERIZATIONS? YES - PLEASE INDICATE : > 9 SURGERIES LATEX RISK : ARE YOU FREQUENTLY EXPOSED TO LATEX PRODUCTS IN YOUR OCCUPATION?YES DATE ASKED : 04/09/2020 ALCOHOL USE: NO. LUNG CANCER SCREENING SMOKING STATUS:NON SMOKER ALCOHOL SCREENING DID YOU HAVE A DRINK CONTAINING ALCOHOL IN THE PAST YEAR?NO POINTS0 INTERPRETATIONNEGATIVE RECREATIONAL DRUG USE DRUG USE?NO CAFFEINE CAFFEINE USE?YES HOW OFTEN AND HOW MUCH? 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 - PFS REFERRAL NEEDED?NO CLERGY REFERRAL NEEDED?NO PUBLIC HEALTH REFERRAL NEEDED?NO WAS THE PROVIDER NOTIFIED OF ANY PERTINENT INFO?YES HAS THE PATIENT BEEN EDUCATED REGARDING HIS/HER PLAN OF CARE?YES HAS THE PATIENT BEEN EDUCATED REGARDING PAIN, THE RISK FOR PAIN, THE IMPORTANCE OF EFFECTIVE PAIN MANAGEMENT, AND THE PAIN ASSESSMENT PROCESS?YES ADVANCE DIRECTIVE ADVANCE DIRECTIVE DISCUSSED WITH PATIENT:YES PT REPORTS HIS IS HIS HCP. SALLIE VELAZQUEZ [phone], 02/16/20. REVIEW OF SYSTEMS CONSTITUTIONAL: ANY RECENT FEVER NO . CHILLS NO . WEIGHT CHANGE OF UNKNOWN REASONS NO . GASTROENTEROLOGY: NEW UNEXPLAINABLE CHANGES IN BOWEL CONTROL NO . CONSTIPATION NO . GENITOURINARY: ANY NEW CHANGE IN BLADDER CONTROL? NO . NEUROLOGY: NEW ONSET DIZZINESS OR NEUROLOGICAL CHANGES NOT MENTIONED NO . NEW NUMBNESS OR PAIN PATTERNS NOT MENTIONED AND PERTINENT TO TODAY'S VISIT NO . CARDIOLOGY: NEW CHEST PRESSURE NO . PATIENT DENIES NO . RESPIRATORY: UNEXPLAINABLE COUGH NO . NEW SHORTNESS OF BREATH NO . VITAL SIGNS WT 238.4 LBS, HT 70 IN, BMI 34.20 INDEX, BP 125/58 MM HG, HR 60 /MIN, RR 18 /MIN, TEMP 97.6 F, OXYGEN SAT % 98%, SAFE IN ENV? (Y/N) YES, NA INITIALS SC 14:48T.CHEN GARRETT. EXAMINATION GENERAL EXAMINATION: GENERAL AWAKE,ALERT ,PLEAASANT . PSYCH AFFECT NORMAL . LUNGS: LUNG NG ARE CLEAR TO AUSCULTATION BILATERALLY. GOOD MOVEMENT OF AIR . HEART: S1, S2 IN A REGULAR RATE AND RHYTHM. NO SIGNIFICANT MURMURS, RUBS OR GALLOPS NOTED . MUSCULOSKELETAL:TRIGGER POINTS ELICITED OVER UPPER BACK AND SHOULDER AREA . CERVICAL: TRIGGER POINTS: CERVICAL AND TRAPEZIUS BILAT..PAIN IS AGGREVATED WITH ROJM NECK. ASSESSMENTS MYALGIA, OTHER SITE - M79.18 (PRIMARY) CHRONIC PRESCRIPTION OPIATE USE - Z79.891 OTHER CHRONIC PAIN - G89.29 TREATMENT MYALGIA, OTHER SITE NOTES: PRINTED AND REVIEWED PRE PROCEDURE FOR PATIENT GiancarloCHEN GARRETT , ISTOP REGISTRY REVIEWED AND DEMONSTRATES COMPLLIANCE. BRINGS IN MEDICATIONS WHICH IS APPROPRIATE FOR WHAT WAS DISPENSED. RECENT URINE TOXICOLOGY REVIEWED. NO UNAUTHORIZED MEDICATIONS. NO ILLICIT SUBSTANCES AND PRESCRIBED MEDICATIONS WERE PRESENT. . CHRONIC PRESCRIPTION OPIATE USE REFILL CELEBREX CAPSULE, 200 MG, 1 CAPSULE, ORALLY FOR PAIN, BID DAILY NEEDED MDD2, 90 DAY(S), 180, REFILLS 0 REFILL SOMA TABLET, 350 MG, 1 TABLET NEEDED, ORALLY FOR SPSMS AND PAIN, Q8H PRN MDD3 3 MOS SUPPLY CAT D CHRONIC PAIN, 30 DAYS, 270, REFILLS 0 REFILL TRAMADOL HCL TABLET, 50 MG, 1 TABLET NEEDED, ORALLY FOR PAIN, Q8H PRN PAIN MDD3 3 MOS SUPPLY CAT D CHRONIC PAIN, 90 DAY(S), 270, REFILLS 0 LAB: URINE TEST GROUP 6-ACETYLMORPHINE SCREEN NEGATIVE (10 - NG/ML) BENZODIAZEPINES SCREEN NEGATIVE (200 - NG/ML) AMPHETAMINE SCREEN NEGATIVE (1000 - NG/ML) BARBITURATES SCREEN NEGATIVE (200 - NG/ML) BUPRENORPHINE SCREEN NEGATIVE (5 - NG/ML) COCAINE SCREEN NEGATIVE (300 - NG/ML) CARISOPRODOL SCREEN POSITIVE (100 - NG/ML) FENTANYL SCREEN NEGATIVE (2 - NG/ML) GABAPENTIN SCREEN POSITIVE (1000 - NG/ML) METHADONE SCREEN NEGATIVE (300 - NG/ML) OPIATES SCREEN NEGATIVE (300 - NG/ML) OXYCODONE SCREEN NEGATIVE (100 - NG/ML) PHENCYCLIDINE SCREEN NEGATIVE (25 - NG/ML) CREATININE 64.2 (>= 20 MG/DL - MG/DL) PH 7.2 (4.5 - 8.9 - ) CREATININE/SPECIFIC GRAVITY NORMAL (>= 20 MG/DL - ) PH NORMAL (4.5 - 8.9 - ) TCA ANTIDEPRESSANTS SCREEN NEGATIVE (150 - NG/ML) CANNABINOIDS SCREEN NEGATIVE (20 - NG/ML) MDMA SCREEN NEGATIVE (500 - NG/ML) TRAMADOL SCREEN SEE NOTE (100 - NG/ML) CINDY SIDDIQUI 04/09/2020 3:45:17 PM > LAST DOSE : SOMA-04/08/20, TRAMADOL-04/08/20 NOTES: BILATERAL NECK,BILATERAL SHOULDER,BILATERAL THORACIC TRIGGER POINT INJECTIONS WITH STEROID. OTHER CHRONIC PAIN PAIN PROCEDURE LOGDATE OF PROCEDURE1PROCEDURE:TRIGGER POINT INJECTIONSAMOUNT OF PRE SEDATENONERESULT:2 TO 3 DAYS OF IMPROVEMENT PROCEDURE CODES [id number] ESTAB[address] [facility] CHARGE DISPOSITION & COMMUNICATION FOLLOW UP POST PROC./REVIEW UTOX (REASON: BILATERAL NECK,BILATERAL SHOULDER,BILATERAL THORACIC TRIGGER POINT INJECTIONS WITH STEROID) ELECTRONICALLY SIGNED BY ALEXX SIMMONS ON 04/18/2020 AT 07:58 AM EST DISCLAIMER : THIS IS A VISIT SUMMARY EXTRACTED FROM THE [employer] CHART. IT IS NOT A COPY OF THE [employer] PROGRESS NOTE. MAUREEN
== END ==
LOC: M PAIN 14:45
PROVIDERS: ATTEND Nurse Practitioner Family
DX: G89.29 Other chronic pain (principal); M79.18 Myalgia, other site; Z79.891 Long term (current) use of opiate analgesic; I10 Essential (primary) hypertension; E78.00 Pure hypercholesterolemia, unspecified; E11.9 Type 2 diabetes mellitus without complications; K21.9 Gastro-esophageal reflux disease without esophagitis; Z79.899 Other long term (current) drug therapy; Z88.5 Allergy status to narcotic agent; Z91.040 Latex allergy status

== ENCOUNTER → 2020-11-22 | Outpatient (REF) | payer OTHER ==
[~2020-11-22] MED LIST changes: +GABA-283 PO; -GABA-845 PO
[2020-11-22 13:13] LABS: FOLATE 18.3 NG/ML
== END ==
LOC: M LAB REF 11:20
PROVIDERS: ATTEND Internal Medicine
DX: D64.9 Anemia, unspecified (principal)

== ENCOUNTER → 2021-06-15 | Outpatient (REF) | payer OTHER ==
[2021-06-15 13:13] LABS: PERCENT SATURATION 20.1 % (19.7-50.0)
== END ==
LOC: M LAB REF 12:12
PROVIDERS: ATTEND Internal Medicine
DX: Z98.84 Bariatric surgery status (principal)

== ENCOUNTER → 2021-07-08 | Outpatient (CLI) | payer OTHER, MEDICARE | LOC: M PLAIMG 06:34 | PROVIDERS: ATTEND Internal Medicine | DX: M50.121 Cervical disc disorder at C4-C5 level with radiculopathy (principal); M48.02 Spinal stenosis, cervical region; Z98.1 Arthrodesis status; M47.812 Spondylosis without myelopathy or radiculopathy, cervical region ==

== ENCOUNTER → 2021-07-29 | Outpatient (CLI) | payer OTHER, MEDICARE | LOC: M RAD 07:29 | PROVIDERS: ATTEND Neurological Surgery | DX: M50.21 Other cervical disc displacement, high cervical region (principal); M48.02 Spinal stenosis, cervical region ==

== ENCOUNTER → 2021-09-26 | Outpatient (CLI) | payer MEDICARE, OTHER | LOC: M LABSMTC 08:56 | PROVIDERS: ATTEND Neurological Surgery | DX: Z01.812 Encounter for preprocedural laboratory examination (principal); Z20.822 Contact with and (suspected) exposure to COVID-19 ==

== ENCOUNTER → 2021-10-11 | Outpatient (CLI) | payer OTHER, MEDICARE | LOC: M RAD 09:22 | PROVIDERS: ATTEND Internal Medicine | DX: R13.10 Dysphagia, unspecified (principal); R22.1 Localized swelling, mass and lump, neck; Z98.1 Arthrodesis status ==

== ENCOUNTER → 2021-12-12 | Outpatient (CLI) | payer OTHER, MEDICARE | LOC: M PAIN 12:00 | PROVIDERS: ATTEND Anesthesiology | DX: M79.18 Myalgia, other site (principal); G89.29 Other chronic pain; E11.9 Type 2 diabetes mellitus without complications; I10 Essential (primary) hypertension; K21.9 Gastro-esophageal reflux disease without esophagitis; Z88.5 Allergy status to narcotic agent; Z91.040 Latex allergy status; Z79.4 Long term (current) use of insulin; Z79.899 Other long term (current) drug therapy ==

== ENCOUNTER → 2021-12-27 | Outpatient (CLI) | payer OTHER, MEDICARE | LOC: M LABSMTC 10:47 | PROVIDERS: ATTEND Anesthesiology | DX: Z01.812 Encounter for preprocedural laboratory examination (principal); Z11.52 Encounter for screening for COVID-19 ==

== ENCOUNTER → 2022-02-03 | Outpatient (CLI) | payer OTHER, MEDICARE ==
[~2022-02-03] MED LIST changes: +CLON1TAB17 PO; +CVS5000S2 SL; +DIGO0.123 PO; +FIOR1CAP PO; +JANU50TA25 PO; +JARD1TAB3 PO; +LANTINJ4 SC; +PENT400T23 PO; +RAMI1CAP21 PO; -TRAM50TA2; +TRAM50TA2 PO; +VITA-243 PO; +[UNRECOGNIZED DRUG - CODE] PO
== END ==
LOC: M RAD 10:54
PROVIDERS: ATTEND Internal Medicine
DX: Z48.89 Encounter for other specified surgical aftercare (principal); Z98.1 Arthrodesis status

== ENCOUNTER → 2022-02-03 | Outpatient (REF) | payer OTHER, MEDICARE ==
[~2022-02-03] MED LIST changes: -CLON1TAB17 PO; -CVS5000S2 SL; -DIGO0.123 PO; -FIOR1CAP PO; -JANU50TA25 PO; -JARD1TAB3 PO; -LANTINJ4 SC; -PENT400T23 PO; -RAMI1CAP21 PO; +TRAM50TA2; -TRAM50TA2 PO; -VITA-243 PO; -[UNRECOGNIZED DRUG - CODE] PO
== END ==
LOC: M LAB REF 11:25
PROVIDERS: ATTEND Internal Medicine Gastroenterology
DX: R19.7 Diarrhea, unspecified (principal)

== ENCOUNTER → 2022-02-10 | Outpatient (REF) | payer OTHER, MEDICARE ==
[~2022-02-10] MED LIST changes: +CLON1TAB17 PO; +CVS5000S2 SL; +DIGO0.123 PO; +FIOR1CAP PO; +JANU50TA25 PO; +JARD1TAB3 PO; +LANTINJ4 SC; +PENT400T23 PO; +RAMI1CAP21 PO; -TRAM50TA2; +TRAM50TA2 PO; +VITA-243 PO; +[UNRECOGNIZED DRUG - CODE] PO
[2022-02-10 11:48] LABS: DIGOXIN LEVEL 0.9 NG/ML (0.8-2.0)
[2022-02-10 11:53] LABS: FOLATE 22.9 NG/ML (>5.4)
== END ==
LOC: M LAB REF 10:52
PROVIDERS: ATTEND Internal Medicine
DX: D64.9 Anemia, unspecified (principal); N18.31 Chronic kidney disease, stage 3a; Z98.84 Bariatric surgery status

== ENCOUNTER → 2022-02-13 | Outpatient (CLI) | payer OTHER, MEDICARE | LOC: M LABSMTC 10:09 | PROVIDERS: ATTEND Anesthesiology | DX: Z01.818 Encounter for other preprocedural examination (principal) ==

== ENCOUNTER 2022-02-15 11:17 | Day surgery (SDC) | payer OTHER, MEDICARE ==
[~2022-02-15] VITALS: Ht 182.9 cm; Wt 87.5 kg
[~2022-02-15 11:17] MED LIST changes: +NS 1,000 ML IV ONE
[2022-02-15] MEDS ORDERED: propofoL 200 MG/20 ML VIAL As Ordered ONE (12:38)
[2022-02-15] MEDS ORDERED: fentaNYL 100 MCG/2 ML INJECTION As Ordered ONE (12:38)
[2022-02-15] MEDS ORDERED: LIDOCAINE 2% 100MG/5ML SDV (FOR ANES.) As Ordered ONE (12:38)
[2022-02-15 13:29] VITALS: BP 111/53
== END 2022-02-15 13:36 | disposition home or self-care (01) ==
LOC: M OPP 11:17
PROVIDERS: ATTEND Internal Medicine Gastroenterology
DX: R19.7 Diarrhea, unspecified (principal); R13.10 Dysphagia, unspecified; Z53.8 Procedure and treatment not carried out for other reasons; R12 Heartburn; I10 Essential (primary) hypertension; E78.5 Hyperlipidemia, unspecified; E11.9 Type 2 diabetes mellitus without complications; K21.9 Gastro-esophageal reflux disease without esophagitis; M19.90 Unspecified osteoarthritis, unspecified site; Z79.4 Long term (current) use of insulin; Z79.82 Long term (current) use of aspirin; Z79.84 Long term (current) use of oral hypoglycemic drugs; Z79.899 Other long term (current) drug therapy

== ENCOUNTER → 2022-03-03 | Outpatient (CLI) | payer OTHER, MEDICARE ==
[~2022-03-03] MED LIST changes: +BARIUM SULFATE 700 MG TABLET (E-Z-DISK) As Ordered ONE; +E-Z-PAQUE 96% w/w SUSP 176GM BTL As Ordered ONE; -NS 1,000 ML IV ONE; +VARIBAR NECTAR 40% w/v 240ML SUSP BTL As Ordered ONE; +VARIBAR PUDDING 40% w/v 230ML TUBE As Ordered ONE
== END ==
LOC: M RAD 10:47
PROVIDERS: ATTEND Internal Medicine Gastroenterology
DX: R13.12 Dysphagia, oropharyngeal phase (principal)

== ENCOUNTER → 2022-04-07 | Outpatient (CLI) | payer OTHER, MEDICARE ==
[~2022-04-07] MED LIST changes: -BARIUM SULFATE 700 MG TABLET (E-Z-DISK) As Ordered ONE; -E-Z-PAQUE 96% w/w SUSP 176GM BTL As Ordered ONE; -VARIBAR NECTAR 40% w/v 240ML SUSP BTL As Ordered ONE; -VARIBAR PUDDING 40% w/v 230ML TUBE As Ordered ONE
== END ==
LOC: M RAD 11:58
PROVIDERS: ATTEND Internal Medicine Gastroenterology
DX: R68.81 Early satiety (principal); K30 Functional dyspepsia
CPT/HCPCS: 78264; A9541

== ENCOUNTER → 2022-08-02 | Outpatient (REF) | payer OTHER, MEDICARE | LOC: M LAB REF 12:37 | PROVIDERS: ATTEND Internal Medicine | DX: I48.0 Paroxysmal atrial fibrillation (principal) ==

== ENCOUNTER → 2023-02-23 | Outpatient (CLI) | payer OTHER, MEDICARE ==
[~2023-02-23] MED LIST changes: +EZET10TA58 PO; -GABA-283 PO; +GABA-284 PO; -ZETI10TA16 PO
== END ==
LOC: M PAIN 15:30
PROVIDERS: ATTEND Nurse Practitioner Family
DX: M79.12 Myalgia of auxiliary muscles, head and neck (principal); M96.1 Postlaminectomy syndrome, not elsewhere classified; G89.29 Other chronic pain; M54.2 Cervicalgia; I10 Essential (primary) hypertension; E78.00 Pure hypercholesterolemia, unspecified; E11.9 Type 2 diabetes mellitus without complications; K21.9 Gastro-esophageal reflux disease without esophagitis; Z79.891 Long term (current) use of opiate analgesic; Z79.84 Long term (current) use of oral hypoglycemic drugs; Z79.899 Other long term (current) drug therapy; Z88.5 Allergy status to narcotic agent; Z91.040 Latex allergy status

== ENCOUNTER → 2023-03-12 | Outpatient (REF) | payer OTHER, MEDICARE | LOC: M LAB REF 12:31 | PROVIDERS: ATTEND Internal Medicine | DX: I48.0 Paroxysmal atrial fibrillation (principal) ==

== ENCOUNTER → 2023-03-23 | Outpatient (CLI) | payer OTHER, MEDICARE ==
[~2023-03-23] MED LIST changes: +PROHANCE 279.3MG/ML 15ML VIAL As Ordered ONE
== END ==
LOC: M RAD 13:36
PROVIDERS: ATTEND Nurse Practitioner Family
DX: M96.1 Postlaminectomy syndrome, not elsewhere classified (principal); Z98.1 Arthrodesis status
CPT/HCPCS: 72156; A9576

== ENCOUNTER → 2023-03-28 | Outpatient (CLI) | payer OTHER, MEDICARE ==
[~2023-03-28] MED LIST changes: -PROHANCE 279.3MG/ML 15ML VIAL As Ordered ONE; +TRIAMCINOLONE ACETONIDE SUSP 40MG/ML 1ML VIAL As Ordered ONE
== END ==
LOC: M PAIN 16:00
PROVIDERS: ATTEND Anesthesiology
DX: M79.12 Myalgia of auxiliary muscles, head and neck (principal); M79.18 Myalgia, other site; I10 Essential (primary) hypertension; E78.00 Pure hypercholesterolemia, unspecified; E11.9 Type 2 diabetes mellitus without complications; K21.9 Gastro-esophageal reflux disease without esophagitis; Z79.899 Other long term (current) drug therapy; Z79.891 Long term (current) use of opiate analgesic; Z88.5 Allergy status to narcotic agent; Z91.040 Latex allergy status
CPT/HCPCS: 20553; J0665; J3301

== ENCOUNTER → 2023-05-30 | Outpatient (REF) | payer OTHER, MEDICARE ==
[~2023-05-30] MED LIST changes: -TRIAMCINOLONE ACETONIDE SUSP 40MG/ML 1ML VIAL As Ordered ONE
[2023-05-30 14:44] LABS: FERRITIN 167.1 NG/ML (10.5-307.3); FOLATE 17.6 NG/ML (>5.4)
== END ==
LOC: M LAB REF 12:04
PROVIDERS: ATTEND Internal Medicine
DX: Z98.84 Bariatric surgery status (principal); D64.9 Anemia, unspecified; N18.31 Chronic kidney disease, stage 3a

== ENCOUNTER → 2023-10-02 | Outpatient (REF) | payer MEDICARE, OTHER ==
[~2023-10-02] MED LIST changes: +RAMI1.258 PO; +RAMI10CA64; -RAMI1CAP21 PO; -RAMI1CAP26
== END ==
LOC: M LAB REF 11:55
PROVIDERS: ATTEND Internal Medicine
DX: N18.31 Chronic kidney disease, stage 3a (principal); I48.0 Paroxysmal atrial fibrillation

== ENCOUNTER → 2023-10-18 | Outpatient (CLI) | payer MEDICARE, OTHER ==
[~2023-10-18] MED LIST changes: +ISOVUE-370 76% 100ML VIAL As Ordered ONE
== END ==
LOC: M RAD 14:30
PROVIDERS: ATTEND Internal Medicine
DX: R74.8 Abnormal levels of other serum enzymes (principal); K76.0 Fatty (change of) liver, not elsewhere classified
CPT/HCPCS: 74177; Q9967

== ENCOUNTER → 2024-01-22 | Outpatient (REF) | payer MEDICARE, OTHER ==
[~2024-01-22] MED LIST changes: -ISOVUE-370 76% 100ML VIAL As Ordered ONE
== END ==
LOC: M LAB REF 13:06
PROVIDERS: ATTEND Internal Medicine
DX: N18.31 Chronic kidney disease, stage 3a (principal)

== ENCOUNTER → 2024-05-13 | Outpatient (REF) | payer MEDICARE, OTHER ==
[2024-05-13 15:14] LABS: DIGOXIN LEVEL 0.9 NG/ML (0.8-2.0)
== END ==
LOC: M LAB REF 12:23
PROVIDERS: ATTEND Internal Medicine
DX: N18.31 Chronic kidney disease, stage 3a (principal); I48.0 Paroxysmal atrial fibrillation